=== PATIENT | female | born 1935 | race African-American/Black ===

== ENCOUNTER 2017-02-02 12:38 | Inpatient (IN) | payer OTHER ==
[~2017-02-02] VITALS: Ht 165.1 cm; Wt 73.1 kg
[2017-02-02] VITALS (20 sets, daily range): BP systolic 66–131; BP diastolic 22–87
[2017-02-02] MEDS ORDERED: UNOBMED (12:49)
--- NOTE | 2017-02-02 13:12 | Emergency Room Report ---
History of Present Illness General Chief Complaint: Altered Level of Consciousness Source: Family Member, EMS Present Illness HPI Patient presents by paramedics from home gives a report that the patient was recently taken out of a [facility] several weeks ago More recently now the patient appeared more unresponsive This morning the family had difficult time waking the patient up she has not been eating and paramedics were summoned Upon initial arrival the patient is extremely hypotensive unresponsive She was maintaining appropriate respirations with gag reflex And family does request full CODE STATUS Patient has had diagnosis of severe Alzheimer's Allergies: Coded Allergies: No Known Allergies (Unverified , 02/02/17) Patient History Limited by: medical condition Past Medical History: see triage record Pertinent Family History: unable to obtain Reviewed Nursing Documentation: PMH: Agreed, PSxH: Agreed Nursing Documentation-PMH Hx Hypertension: Yes Review of Systems All Other Systems: limited - Other than the ones mentioned in the history of present illness all others are reviewed however they do stay limited due to the patient's mental status Physical Exam Vital Signs Date Time Temp Pulse Resp B/P (MAP) Pulse Ox O2 Delivery O2 Flow Rate FiO2 02/02/17 12:46 97.5 94 18 90/22 94 Non-Rebreather Sp02 EP Interpretation: reviewed, normal General Appearance: severe distress - Appears unresponsive, cachectic Head: normocephalic, atraumatic Eyes: bilateral eye PERRL ENT: dry mucus membranes Neck: supple - The patient does have a kyphosis Respiratory: crackles - in both lower lobes Cardiovascular #1: regular rate, rhythm, other - Mild edema in both lower extremities Gastrointestinal: non tender, soft Genitourinary: no CVA tenderness Musculoskeletal: other - Patient appears debilitated and lower extremities, she does move towards painful stimuli with both upper extremities Neurologic: responsive - to physical stimuli Skin: other - Skin breakdown over the right hand just proximal to the thumb, inguinal erythema Lymphatic: no adenopathy Procedures Critical Care Time Critical Care Time 50 minutes for initial critical presentation, multiple re\re evaluations, concern for critical findings leading to possible , not including any procedural time Central Line Central Line : Consent: Emergent Central Line Lumen: triple Maximal Sterile Barrier Tech: yes cap, yes mask, yes sterile gown, yes sterile gloves, yes large sterile sheet, yes hand hygiene, yes chlorhexidine prep Central Line Postion: femoral (R) Complications: none Central Line Post Position: sutured Attempts: One Patient Tolerated: Well Complications: None Medical Decision Making Diagnostic Impression: Primary Impression: Severe sepsis Additional Impression: Septic shock ER Course Patient is extremely ill upon arrival hypotensive No IV access was able to be obtained therefore patient had central line placed Patient is aggressively hydrated Antibiotics initiated Patient has a just the elevated white blood cell count Patient had reevaluation performed cardiopulmonary exams improved with palpable pulses Refills are intact less than 2 seconds Overall patient improved with acute intervention And requires admission to ICU Labs Test 02/02/17 13:00 02/02/17 13:20 White Blood Count 23.8 K/UL (4.8-10.8) Red Blood Count 3.25 M/UL (4.20-5.40) Hemoglobin 9.9 G/DL (12.0-16.0) Hematocrit 33.8 % (37.0-47.0) Mean Corpuscular Volume 104 FL (80-99) Mean Corpuscular Hemoglobin 30.6 PG (27.0-31.0) Mean Corpuscular Hemoglobin Concent 29.5 G/DL (32.0-36.0) Red Cell Distribution Width 15.3 % (11.6-14.8) Platelet Count 603 K/UL (150-450) Mean Platelet Volume 5.1 FL (6.5-10.1) Neutrophils (%) (Auto) % (45.0-75.0) Lymphocytes (%) (Auto) % (20.0-45.0) Monocytes (%) (Auto) % (1.0-10.0) Eosinophils (%) (Auto) % (0.0-3.0) Basophils (%) (Auto) % (0.0-2.0) Differential Total Cells Counted 100 Neutrophils % (Manual) 88 % (45-75) Lymphocytes % (Manual) 5 % (20-45) Monocytes % (Manual) 7 % (1-10) Eosinophils % (Manual) 0 % (0-3) Basophils % (Manual) 0 % (0-2) Band Neutrophils 0 % (0-8) Platelet Estimate Increased Platelet Morphology Normal Hypochromasia 1+ Anisocytosis 1+ Macrocytosis 1+ Schistocytes Occasional Sodium Level 160 MMOL/L (136-145) Potassium Level 3.9 MMOL/L (3.5-5.1) Chloride Level 117 MMOL/L (98-107) Carbon Dioxide Level 23 MMOL/L (21-32) Anion Gap 20 mmol/L (5-15) Blood Urea Nitrogen 52 mg/dL (7-18) Creatinine 3.5 MG/DL (0.55-1.30) Estimat Glomerular Filtration Rate mL/min (>60) Glucose Level 141 MG/DL (74-106) Calcium Level 9.7 MG/DL (8.5-10.1) Total Bilirubin 0.7 MG/DL (0.2-1.0) Aspartate Amino Transf (AST/SGOT) 59 U/L (15-37) Alanine Aminotransferase (ALT/SGPT) 35 U/L (12-78) Alkaline Phosphatase 75 U/L (46-116) Troponin I 1.991 ng/mL (0.000-0.056) Total Protein 7.4 G/DL (6.4-8.2) Albumin 3.0 G/DL (3.4-5.0) Globulin 4.4 g/dL Albumin/Globulin Ratio 0.7 (1.0-2.7) Arterial Blood pH 7.480 (7.350-7.450) Arterial Blood Partial Pressure CO2 25.5 mmHg (35.0-45.0) Arterial Blood Partial Pressure O2 188.2 mmHg (75.0-100.0) Arterial Blood HCO3 18.6 mmol/L (22.0-26.0) Arterial Blood Base Excess -3.1 Abhinav Test N/a Rhythm Strip Diag. Results EP Interpretation: yes Rate: 110 Rhythm: no PVC's, no ectopy, other - Sinus tach Chest X-Ray Diagnostic Results Chest X-Ray Diagnostic Results : Chest X-Ray Ordered: Yes # of Views/Limited/Complete: 1 View Indication: Chest Pain EP Interpretation: Yes Interpretation: no pneumothorax, other - Patchy interstitial disease appearance, increased markings in the right upper lobe bilateral effusions, heart size normal Impression: Other - Significant interstitial disease Electronically Signed by: DO Nick Sykes Vital Signs Date Time Temp Pulse Resp B/P (MAP) Pulse Ox O2 Delivery O2 Flow Rate FiO2 02/02/17 12:46 97.5 94 18 90/22 94 Non-Rebreather Status: improved Disposition: ADMITTED INPATIENT Condition: Critical DEYANIRA CHEEMA D.O. Feb 02, 2017 13:12
[2017-02-02] MEDS ORDERED: Vancomycin 1 GM in NS 275 ML IV ONE (13:15)
[2017-02-02] MEDS ORDERED: Zosyn 3.375gm/50ml Premix 50 ML IVPB ONE (13:15)
[2017-02-02 13:31] LABS: ABG BASE EXCESS -3.1; ABG PCO2 25.5 mmHg (35.0-45.0)
[2017-02-02 13:33] LABS: MEAN CORPUSCULAR HEMOGLOBIN 30.6 PG (27.0-31.0); MEAN CORPUSCULAR HGB CONC 29.5 G/DL (32.0-36.0); MEAN CORPUSCULAR VOLUME 104 FL (80-99); MEAN PLATELET VOLUME 5.1 FL (6.5-10.1); PLATELET COUNT 603 K/UL (150-450); RED BLOOD COUNT 3.25 M/UL (4.20-5.40); RED CELL DISTRIBUTION WIDTH 15.3 % (11.6-14.8); WHITE BLOOD COUNT 23.8 K/UL (4.8-10.8)
[2017-02-02 13:52] LABS: LYMPHOCYTES % (MANUAL) 5 % (20-45); NEUTROPHILS % (MANUAL) 88 % (45-75); TOTAL CELLS COUNTED 100
[2017-02-02 13:53] LABS: ANISOCYTOSIS 1+; BAND NEUTROPHILS % (MANUAL) 0 % (0-8); BASOPHILS % (MANUAL) 0 % (0-2); EOSINOPHILS % (MANUAL) 0 % (0-3); HYPOCHROMASIA 1+; MACROCYTES 1+; PLATELET ESTIMATE INCREASED; PLATELET MORPHOLOGY NORMAL
[2017-02-02 13:55] LABS: SCHISTOCYTES OCCASIONAL
[2017-02-02 14:02] LABS: ALANINE AMINOTRANSFERASE 35 U/L (12-78); ALBUMIN/GLOBULIN RATIO 0.7 (1.0-2.7); ANION GAP 20 mmol/L (5-15); ASPARTATE AMINO TRANSFERASE 59 U/L (15-37); CALCIUM 9.7 MG/DL (8.5-10.1); CARBON DIOXIDE 23 MMOL/L (21-32); CHLORIDE 117 MMOL/L (98-107); CREATININE 3.5 MG/DL (0.55-1.30); POTASSIUM 3.9 MMOL/L (3.5-5.1); SODIUM 160 MMOL/L (136-145); TOTAL PROTEIN 7.4 G/DL (6.4-8.2)
[2017-02-02 14:13] LABS: CKMB 33.3 NG/ML (0.0-3.6); LIPASE 164 U/L (73-393)
[2017-02-02] MEDS ORDERED: Vancomycin 1gm inj IVPB ONE (14:21)
[2017-02-02] MEDS ORDERED: NS 0 ML ONE (14:21)
[2017-02-02 14:23] LABS: REFLEX LACTIC ACID YES OR NO YES
[2017-02-02] MEDS ORDERED: Piperacillin/Tazobactam 3.375 GM in D5W 110 ML IVPB ONE (14:30)
[2017-02-02] MEDS ORDERED: Zosyn 3.375gm inj ONE (14:31)
[2017-02-02 14:36] LABS: INR 1.2 (0.9-1.1); PROTHROMBIN TIME 12.6 SEC (9.30-11.50)
--- NOTE | 2017-02-02 14:52 | Diagnostic Imaging Report ---
Indication: Dyspnea Comparison: None A single view chest radiograph was obtained. Findings: Cardiomediastinal appearance is within normal limits for age. Pulmonary vascularity is appropriate. The diaphragmatic contour is smooth and costophrenic angles are sharp. No pleural effusions are identified. The bones are osteopenic. Impression: No acute findings
[2017-02-02 20:35] LABS: APPEARANCE,URINE SLIGHTLY CLOUDY; KETONES,URINE 1+ (NEGATIVE); LEUKOCYTE ESTERASE ,URINE 3+ (NEGATIVE); NITRITE,URINE NEGATIVE (NEGATIVE); PH,URINE 5 (4.5-8.0); PROTEIN,URINE 4+ (NEGATIVE); UROBILINOGEN,URINE NORMAL MG/DL (0.0-1.0)
[2017-02-02 20:52] LABS: AMORPHOUS SEDIMENT,UR FEW /LPF; BACTERIA,URINE MANY /HPF; RBC,URINE 20-30 /HPF (0 - 2); SQUAMOUS EPITHELIAL CELL,UR FEW /LPF (NONE/OCC); WBC,URINE 15-20 /HPF (0 - 2)
[2017-02-02 21:05] LABS: ICTOTEST NEGATIVE
[2017-02-02] MEDS: Dyna-Hex 2% Top Sol 2oz TOPIC SCH (21:05)
[2017-02-02] MEDS: Pantoprazole Inj IVP SCH (21:05)
[2017-02-02] MEDS: Zosyn 3.375gm q8h **Extended infusion IVPB SCH (21:26)
[2017-02-02] MEDS ORDERED: Piperacillin/Tazobactam 3.375 GM in D5W 110 ML IVPB SCH (22:00)
--- NOTE | 2017-02-02 23:15 | History and Physical Report ---
DATE OF ADMISSION: 02/02/2017 INTENSIVE CARE UNIT CONSULTATION/HISTORY AND PHYSICAL HISTORY OF PRESENT ILLNESS: This is an 81-year-old who is well known to me from prior admission at [facility] couple of weeks ago. The patient was discharged from [facility] after having been admitted there with failure to thrive and dehydration. She also had UTI at that time that was treated. She passed swallow evaluation and was discharged to jail with modified diet. reported the patient was discharged home a week ago, however, has not been eating, has been having more difficulty with mental status. She was brought to [facility]. She is a Full Code. She was found to be hypotensive, tachycardic, and hypernatremic. She was admitted to ICU for further management and care. PAST MEDICAL HISTORY: Dementia, recently passed swallow evaluation, recent UTI. ALLERGIES: None reported. HOME MEDICATIONS: Summarized in chart. At this point, the patient is not on any scheduled medications. As an outpatient, she had only been on Protonix. REVIEW OF SYSTEMS: Not obtainable. PHYSICAL EXAMINATION: GENERAL: Examination reveals an elderly female VITAL SIGNS: Blood pressure at this time is 70/40, heart rate 94, respiratory rate 18, she is afebrile. She has been started on a Levophed drip. A central line is in place. HEENT: Unremarkable. CHEST: Decreased breath sounds bilaterally. ABDOMEN: Soft. EXTREMITIES: There is no edema. NEUROLOGIC: Nonfocal. The patient is cooperative. LABORATORY DATA: Lab testing shows white count 23.8, hemoglobin 11.9, and platelet count is 623,000. Chemistries notable for sodium 160, potassium 3.5. ABG, pH 7.4, pCO2 25, pO2 188. Coags are negative. IMAGING STUDIES: Noncontributory. IMPRESSION: 1. Dehydration. 2. Hypernatremia. 3. Shock. 4. Dementia. 5. Full Code. DISCUSSION: Admitted to the hospital. Start pressors. IV fluids. Empiric antibiotics. We will consult Nephrology and Cardiology. Continue present medications. The patient is Full Code. Teja Adhikari M.D. DR: Steph JOB#: [id number] CC:
--- NOTE | 2017-02-02 23:15 | Consultation ---
DATE OF CONSULTATION: 02/02/2017 CARDIOLOGY CONSULTATION CONSULTING PHYSICIAN: Audi Garcia M.D. ATTENDING PHYSICIAN: Teja Adhikari M.D. REQUESTING PHYSICIAN: Teja Adhikari M.D. REASON FOR CONSULTATION: Elevated troponin level and hypotension. HISTORY OF PRESENT ILLNESS: This is an 81-year-old female. She has been residing at a halfway facility up until 2 days ago when she was released home. She was increasingly withdrawn and unresponsive and brought to the emergency room by family members today. Upon arrival, she was hypotensive and unresponsive. The patient was treated with volume resuscitation and admitted to the intensive care unit. Blood pressure parameters failed to improve adequately and she is now on pressor support as well. ALLERGIES: None. PAST MEDICAL HISTORY: Includes hypertension, decubiti, cerebrovascular disease with dementia. FAMILY HISTORY: Noncontributory. MEDICATIONS: Medications prior to admission, reviewed and reconciled. SOCIAL HISTORY: No record of smoking, alcohol, or substance abuse. REVIEW OF SYSTEMS: Not reliably obtained from the patient at this time. PHYSICAL EXAMINATION: VITAL SIGNS: Blood pressure 90/22, rate 94, respiratory rate 18, and afebrile. SKIN: Pictured in the chart with multiple decubiti. HEENT: Temporal wasting. Pale conjunctivae. Dry mucous membranes. NECK: Supple. No accessory muscle use. LUNGS: Coarse breath sounds. No wheezes or rales. CARDIAC: Regular rhythm and rate. Normal S1, S2 with a fourth heart sound. ABDOMEN: Soft, nontender. EXTREMITIES: With trace edema. There is a central line catheter in the right femoral vein, site is without active bleeding. LABORATORY DATA: White count 23.8, hemoglobin 9.9, and platelet count 603,000. Sodium 160, potassium 3.9, chloride 117, bicarbonate 23, BUN 52, creatinine 3.5, glucose 141. Albumin 3.0. EKG with sinus tachycardia and nonspecific ST change. Troponin level is elevated at 1.1. IMPRESSION: 1. Multiorgan system failure. 2. Sepsis. 3. Decubiti. 4. Dehydration. 5. Hypernatremia. 6. Hypovolemia. 7. Hyperchloremia. 8. Acute on chronic renal failure due to acute tubular necrosis. 9. Secondary sinus tachycardia. 10. Dementia with episodes of agitation. 11. Lactic acidosis. PLAN: 1. ICU monitoring. 2. Volume support with saline until euvolemic, then transition to hypotonic IV fluids. 3. Wean off Levophed as blood pressure parameters improve. 4. Broad-spectrum antibiotics. 5. Respiratory hygiene. 6. DVT and stress ulcer prophylaxis. 7. Serial troponin levels. 8. Repeat lactic acid level. 9. Anti-platelet therapy. 10. Consider beta-ann once hemodynamically stable. CONDITION: Condition is critical and prognosis remains guarded. Audi Garcia M.D. DR: Blanca JOB#: [id number] CC:
[2017-02-03] VITALS (60 sets, daily range): BP systolic 75–118; BP diastolic 39–80
[2017-02-03 05:30] LABS: MEAN CORPUSCULAR HEMOGLOBIN 32.3 PG (27.0-31.0); MEAN CORPUSCULAR HGB CONC 32.1 G/DL (32.0-36.0); MEAN CORPUSCULAR VOLUME 101 FL (80-99); MEAN PLATELET VOLUME 5.4 FL (6.5-10.1); PLATELET COUNT 476 K/UL (150-450); RED BLOOD COUNT 2.72 M/UL (4.20-5.40); RED CELL DISTRIBUTION WIDTH 15.2 % (11.6-14.8)
--- NOTE | 2017-02-03 06:05 | Pulmonology Progress Note ---
Assessment/Plan Assessment/Plan IMPRESSION: 1. Multiorgan system failure. 2. Sepsis. 3. Decubiti. 4. Dehydration. 5. Hypernatremia. 6. Hypovolemia. 7. Hyperchloremia. 8. Acute on chronic renal failure 9. Secondary sinus tachycardia. 10. Dementia with episodes of agitation. 11. Lactic acidosis. PLAN: 1. ICU monitoring. 2. Volume support with saline until euvolemic, then transition to hypotonic IV fluids. 3. Wean off Levophed as blood pressure parameters improve. 4. Broad-spectrum antibiotics. 5. Respiratory hygiene. 6. DVT and stress ulcer prophylaxis. 7. Serial troponin levels. 8. Repeat lactic acid level. 9. Anti-platelet therapy. 10. Consider beta-ann once hemodynamically stable. 11. Cardiology consult appreciated Subjective Interval Events: BP improved on Levophed; Constitutional: Reports: no symptoms HEENT: Repors: no symptoms Respiratory: Reports: no symptoms Cardiovascular: Reports: no symptoms Gastrointestinal/Abdominal: Reports: no symptoms Genitourinary: Reports: no symptoms Allergies: Coded Allergies: No Known Allergies (Unverified , 02/02/17) Objective Last 24 Hour Vital Signs Date Time Temp Pulse Resp B/P (MAP) Pulse Ox O2 Delivery O2 Flow Rate FiO2 02/03/17 04:00 88 02/03/17 03:45 79 17 100/48 98 Nasal Cannula 2.0 02/03/17 03:30 88 20 91/46 98 Nasal Cannula 2.0 02/03/17 03:15 101 13 104/50 96 Nasal Cannula 2.0 02/03/17 03:00 87 13 95/53 96 Nasal Cannula 2.0 02/03/17 02:45 86 13 78/40 99 Nasal Cannula 2.0 02/03/17 02:30 86 13 85/40 99 Nasal Cannula 2.0 02/03/17 02:00 85 13 82/47 99 Nasal Cannula 2.0 02/03/17 01:45 85 13 81/45 99 Nasal Cannula 2.0 02/03/17 01:30 89 18 80/41 99 Nasal Cannula 2.0 02/03/17 01:15 89 18 78/41 99 Nasal Cannula 2.0 02/03/17 01:00 86 18 81/41 99 Nasal Cannula 2.0 02/03/17 00:45 83 19 75/45 99 Nasal Cannula 2.0 02/03/17 00:30 80 19 78/46 100 Nasal Cannula 2.0 02/03/17 00:15 78 17 84/39 100 Nasal Cannula 2.0 02/03/17 00:00 97.8 78 16 88/40 100 Nasal Cannula 2.0 02/03/17 00:00 84/45 02/03/17 00:00 79 02/02/17 23:45 79 19 84/45 100 Nasal Cannula 2.0 02/02/17 23:30 78 14 82/42 100 Nasal Cannula 2.0 02/02/17 23:15 77 10 95/46 100 Nasal Cannula 2.0 02/02/17 23:00 77 10 78/51 100 Nasal Cannula 2.0 02/02/17 22:45 76 9 66/51 100 Nasal Cannula 2.0 02/02/17 22:30 76 10 100/50 100 Nasal Cannula 2.0 02/02/17 22:15 76 12 87/44 100 Nasal Cannula 2.0 02/02/17 22:00 78 17 95/40 99 Nasal Cannula 2.0 02/02/17 21:30 79 16 92/47 100 Nasal Cannula 2.0 02/02/17 21:00 79 13 97/61 100 Nasal Cannula 2.0 02/02/17 20:30 81 11 103/36 100 Nasal Cannula 2.0 02/02/17 20:00 76 02/02/17 20:00 83 12 95/56 100 Nasal Cannula 2.0 02/02/17 19:15 97.7 78 18 131/87 99 Nasal Cannula 2.0 02/02/17 19:00 131/87 02/02/17 19:00 78 18 131/87 99 Nasal Cannula 2.0 02/02/17 18:00 105/57 02/02/17 18:00 98.2 80 18 105/57 99 Nasal Cannula 2.0 02/02/17 17:26 71/35 02/02/17 17:00 98.2 79 18 71/48 99 Nasal Cannula 2.0 02/02/17 16:00 89 02/02/17 16:00 98.6 81 19 104/85 99 Nasal Cannula 2.0 02/02/17 15:11 84 18 99/40 99 Room Air 02/02/17 14:26 97.0 98 18 97/81 99 Nasal Cannula 2.0 02/02/17 13:30 96.7 88 18 99/41 98 Nasal Cannula 4.0 02/02/17 13:27 97.5 95 99 Non-Rebreather 02/02/17 12:46 97.5 94 94 Non-Rebreather General Appearance: no acute distress HEENT: normocephalic Respiratory/Chest: chest wall non-tender, lungs clear Cardiovascular: normal peripheral pulses, tachycardia Abdomen: normal bowel sounds, soft, non tender Extremities: no cyanosis Laboratory Tests 02/02/17 13:00: White Blood Count 23.8*H, Red Blood Count 3.25L, Hemoglobin 9.9L, Hematocrit 33.8L, Mean Corpuscular Volume 104H, Mean Corpuscular Hemoglobin 30.6, Mean Corpuscular Hemoglobin Concent 29.5L, Red Cell Distribution Width 15.3H, Platelet Count 603H, Mean Platelet Volume 5.1L, Neutrophils (%) (Auto) , Lymphocytes (%) (Auto) , Monocytes (%) (Auto) , Eosinophils (%) (Auto) , Basophils (%) (Auto) , Differential Total Cells Counted 100, Neutrophils % ( Manual) 88H, Lymphocytes % (Manual) 5L, Monocytes % (Manual) 7, Eosinophils % ( Manual) 0, Basophils % (Manual) 0, Band Neutrophils 0, Platelet Estimate IncreasedH, Platelet Morphology Normal, Hypochromasia 1+, Anisocytosis 1+, Macrocytosis 1+, Schistocytes Occasional, Sodium Level 160H, Potassium Level 3.9 , Chloride Level 117H, Carbon Dioxide Level 23, Anion Gap 20H, Blood Urea Nitrogen 52H, Creatinine 3.5H, Estimat Glomerular Filtration Rate , Glucose Level 141H, Lactic Acid Level 8.20H, Calcium Level 9.7, Total Bilirubin 0.7, Aspartate Amino Transf (AST/SGOT) 59H, Alanine Aminotransferase (ALT/SGPT) 35, Alkaline Phosphatase 75, Total Creatine Kinase 1088H, Creatine Kinase MB 33.3H, Creatine Kinase MB Relative Index 3.0, Troponin I 1.991H, Pro-B-Type Natriuretic Peptide 74655A, Total Protein 7.4, Albumin 3.0L, Globulin 4.4, Albumin/Globulin Ratio 0.7L, Lipase 164 02/02/17 13:20: Arterial Blood pH 7.480H, Arterial Blood Partial Pressure CO2 25.5L, Arterial Blood Partial Pressure O2 188.2H, Arterial Blood HCO3 18.6L, Arterial Blood Oxygen Saturation [Pending], Arterial Blood Base Excess -3.1, Abhinav Test N/a 02/02/17 14:13: Prothrombin Time 12.6H, Prothromb Time International Ratio 1.2H, Activated Partial Thromboplast Time 20L 02/02/17 14:25: Lactic Acid Level 4.60H 02/02/17 19:50: Urine Color Yellow, Urine Appearance Slightly cloudy, Urine pH 5, Urine Specific [place] 1.020, Urine Protein 4+H, Urine Glucose (UA) Negative, Urine Ketones 1+H, Urine Occult Blood 5+H, Urine Nitrite Negative, Urine Bilirubin 1+H , Urine Ictotest Negative, Urine Urobilinogen Normal, Urine Leukocyte Esterase 3 +H, Urine RBC 20-30H, Urine WBC 15-20H, Urine Squamous Epithelial Cells Few, Urine Amorphous Sediment FewH, Urine Bacteria ManyH 02/03/17 04:10: White Blood Count [Pending], Red Blood Count [Pending], Hemoglobin [Pending], Hematocrit [Pending], Mean Corpuscular Volume [Pending], Mean Corpuscular Hemoglobin [Pending], Mean Corpuscular Hemoglobin Concent [Pending], Red Cell Distribution Width [Pending], Platelet Count [Pending], Mean Platelet Volume [ Pending], Neutrophils (%) (Auto) [Pending], Lymphocytes (%) (Auto) [Pending], Monocytes (%) (Auto) [Pending], Eosinophils (%) (Auto) [Pending], Basophils (%) (Auto) [Pending], Sodium Level [Pending], Potassium Level [Pending], Chloride Level [Pending], Carbon Dioxide Level [Pending], Blood Urea Nitrogen [Pending], Creatinine [Pending], Estimat Glomerular Filtration Rate [Pending], Glucose Level [Pending], Lactic Acid Level [Pending], Calcium Level [Pending], Total Bilirubin [Pending], Aspartate Amino Transf (AST/SGOT) [Pending], Alanine Aminotransferase (ALT/SGPT) [Pending], Alkaline Phosphatase [Pending], Troponin I [Pending], Total Protein [Pending], Albumin [Pending], Globulin [Pending], Thyroid Stimulating Hormone (TSH) [Pending], Random Vancomycin Level [Pending] Current Medications Medications (Trade) Dose Ordered Sig/Lyndon Route PRN Reason Start Time Stop Time Status Last Admin Dose Admin Chlorhexidine Gluconate (Mayte-Hex 2%) 1 applic DAILY@2000 TOPIC 02/02/17 20:00 03/04/17 19:59 02/02/17 21:05 Norepinephrine Bitartrate 4 mg/ Dextrose 250 ml @ 0 mls/hr Q24H IV 02/02/17 17:00 03/04/17 16:59 02/03/17 00:00 Pantoprazole (Protonix) 40 mg EVERY 12 HOURS IVP 02/02/17 21:00 03/04/17 20:59 02/02/17 21:05 Piperacillin/ Tazobactam/ Dextrose 50 ml @ 12.5 mls/hr Q12HR@1000,2200 IVPB 02/02/17 22:00 02/09/17 21:59 02/02/17 21:26 Sodium Chloride 1,000 ml @ 125 mls/hr Q8H IV 02/02/17 17:00 03/04/17 16:59 02/03/17 00:44 Vancomycin HCl (Vanco rx to dose) 1 ea DAILY PRN MISC Per rx protocol 02/02/17 17:00 03/04/17 16:59 Teja Adhikari MD Feb 03, 2017 06:05
[2017-02-03 06:09] LABS: WHITE BLOOD COUNT 28.1 K/UL (4.8-10.8)
[2017-02-03 06:10] LABS: ALANINE AMINOTRANSFERASE 37 U/L (12-78); ALBUMIN/GLOBULIN RATIO 0.8 (1.0-2.7); ANION GAP 17 mmol/L (5-15); ASPARTATE AMINO TRANSFERASE 55 U/L (15-37); CALCIUM 8.4 MG/DL (8.5-10.1); CARBON DIOXIDE 22 MMOL/L (21-32); CHLORIDE 121 MMOL/L (98-107); CREATININE 2.4 MG/DL (0.55-1.30); POTASSIUM 2.9 MMOL/L (3.5-5.1); SODIUM 160 MMOL/L (136-145); TOTAL PROTEIN 6.3 G/DL (6.4-8.2)
[2017-02-03 06:42] LABS: REFLEX LACTIC ACID YES OR NO YES
[2017-02-03 08:37] LABS: BAND NEUTROPHILS % (MANUAL) 3 % (0-8); LYMPHOCYTES % (MANUAL) 7 % (20-45); NEUTROPHILS % (MANUAL) 88 % (45-75); TOTAL CELLS COUNTED 100
[2017-02-03 08:38] LABS: ACANTHOCYTES OCCASIONAL; ANISOCYTOSIS 1+; BASOPHILS % (MANUAL) 0 % (0-2); BURR CELLS 1+; EOSINOPHILS % (MANUAL) 0 % (0-3); MACROCYTES 1+; PLATELET ESTIMATE INCREASED; PLATELET MORPHOLOGY NORMAL
[2017-02-03 08:39] LABS: HYPOCHROMASIA 1+
[2017-02-03] MEDS: Pantoprazole Inj IVP SCH ×2 (08:52→21:06)
[2017-02-03] MEDS ORDERED: Vancomycin 1250mg/D5W 250ml IVPB ONE (09:00)
[2017-02-03] MEDS ORDERED: Tubing IV Secondary IV ONE (09:36)
[2017-02-03] MEDS: Zosyn 3.375gm q8h **Extended infusion IVPB SCH ×2 (09:44→21:33)
--- NOTE | 2017-02-03 11:17 | Wound Care Consultation ---
Wound Assessment Wound Assessment #1: Wound Number: 1 Wound Present on Admission: Yes New Wound: No Status Change of Wound: No Wound Location Body Site Modif: mid Wound Location Body Site: sacral Wound Type: pressure ulcer Bayron Test: Does not Bayron Pressure Ulcer Stage: II - scattered Wound Thickness: Partial Thickness Wound Length: 4.5 Wound Width: 5.5 Wound Depth: 0.1 Percent of Wound [place]/Red: 100 Wound Drainage Description: Serosanguineous Wound Drainage Amount: Scant Wound Drainage Odor: None/Absent Tissue Surrounding Wound: Erythemic Wound General Appearance: Reddened, Draining Wound Assessment #2: Wound Number: 2 Wound Present on Admission: Yes New Wound: No Status Change of Wound: No Wound Location Body Site Modif: left Wound Location Body Site: buttocks Wound Type: pressure ulcer Bayron Test: Does not Bayron Pressure Ulcer Stage: II Wound Thickness: Partial Thickness Wound Length: 0.5 Wound Width: 0.8 Wound Depth: 0.1 Percent of Wound [place]/Red: 100 Wound Drainage Description: Serosanguineous Wound Drainage Amount: Scant Wound Drainage Odor: None/Absent Tissue Surrounding Wound: Erythemic Wound General Appearance: Reddened Wound Assessment #3: Wound Number: 3 Wound Present on Admission: Yes New Wound: No Status Change of Wound: No Wound Location Body Site Modif: right Wound Location Body Site: buttocks Wound Type: pressure ulcer Bayron Test: Does not Bayron Pressure Ulcer Stage: II Wound Thickness: Partial Thickness Wound Length: 0.5 Wound Width: 0.8 Wound Depth: 0.1 Percent of Wound [place]/Red: 100 Wound Drainage Description: Serosanguineous Wound Drainage Amount: Scant Wound Drainage Odor: None/Absent Tissue Surrounding Wound: Erythemic Wound General Appearance: Reddened Wound Assessment #4: Wound Number: 4 Wound Present on Admission: Yes New Wound: No Status Change of Wound: No Wound Location Body Site Modif: right Wound Location Body Site: trochanter Wound Type: pressure ulcer Bayron Test: Does not Bayron Pressure Ulcer Stage: Deep Tissue Injury Wound Thickness: Full Thickness Wound Length: 6.5 Wound Width: 8.5 Wound Depth: utd Percent of Wound Purple/Maroon: 100 Wound Drainage Amount: None Wound Drainage Odor: None/Absent Tissue Surrounding Wound: Erythemic Wound General Appearance: Reddened - purple Wound Assessment #5: Wound Number: 5 Wound Present on Admission: Yes New Wound: No Status Change of Wound: No Wound Location Body Site Modif: right Wound Location Body Site: buttocks Wound Type: pressure ulcer Bayron Test: Does not Bayron Pressure Ulcer Stage: Deep Tissue Injury Wound Thickness: Full Thickness Wound Length: 3.5 Wound Width: 5.5 Wound Depth: utd Percent of Wound Purple/Maroon: 100 Wound Drainage Amount: None Wound Drainage Odor: None/Absent Tissue Surrounding Wound: Intact Wound General Appearance: Reddened - purple Wound Assessment #6: Wound Number: 6 Wound Present on Admission: Yes New Wound: No Status Change of Wound: No Wound Location Body Site Modif: right Wound Location Body Site: ischial tuberosity Wound Type: pressure ulcer Bayron Test: Does not Bayron Pressure Ulcer Stage: Deep Tissue Injury Wound Thickness: Full Thickness Wound Length: 2.5 Wound Width: 2.5 Wound Depth: utd Percent of Wound Purple/Maroon: 100 Wound Drainage Amount: None Wound Drainage Odor: None/Absent Tissue Surrounding Wound: Erythemic Wound General Appearance: Reddened - purple Wound Assessment #7: Wound Number: 7 Wound Present on Admission: Yes New Wound: No Status Change of Wound: No Wound Location Body Site Modif: right, dorsal Wound Location Body Site: hand Wound Type: blister - open Bayron Test: Does not Bayron Wound Thickness: Partial Thickness Wound Length: 5.5 Wound Width: 3.5 Wound Depth: 0.1 Percent of Wound [place]/Red: 100 Wound Drainage Amount: None Wound Drainage Odor: None/Absent Tissue Surrounding Wound: Erythemic Wound General Appearance: Reddened, Draining Wound Assessment #8: Wound Number: 8 Wound Present on Admission: Yes New Wound: No Status Change of Wound: No Wound Location Body Site Modif: right, lateral Wound Location Body Site: malleolus/ankle Wound Type: pressure ulcer Bayron Test: Does not Bayron Pressure Ulcer Stage: Deep Tissue Injury Wound Thickness: Full Thickness Wound Length: 2.0 Wound Width: 3.0 Wound Depth: utd Percent of Wound Purple/Maroon: 100 Wound Drainage Amount: None Wound Drainage Odor: None/Absent Tissue Surrounding Wound: Intact Wound General Appearance: Reddened - purple Wound Assessment #9: Wound Number: 9 Wound Present on Admission: Yes New Wound: No Status Change of Wound: No Wound Location Body Site Modif: right, mid, lateral Wound Location Body Site: foot Wound Type: pressure ulcer Bayron Test: Does not Bayron Pressure Ulcer Stage: Deep Tissue Injury Wound Thickness: Full Thickness Wound Length: 2.5 Wound Width: 3.5 Wound Depth: utd Percent of Wound Purple/Maroon: 100 Wound Drainage Amount: None Wound Drainage Odor: None/Absent Tissue Surrounding Wound: Erythemic Wound General Appearance: Reddened - purple Wound Assessment #10: Wound Number: 10 Wound Present on Admission: Yes New Wound: No Status Change of Wound: No Wound Location Body Site Modif: right Wound Location Body Site: metatarsal head - 5th Wound Type: pressure ulcer Bayron Test: Does not Bayron Pressure Ulcer Stage: Deep Tissue Injury Wound Thickness: Full Thickness Wound Length: 8.0 Wound Width: 8.0 Wound Depth: utd Percent of Wound Purple/Maroon: 100 Wound Drainage Amount: None Wound Drainage Odor: None/Absent Tissue Surrounding Wound: Erythemic Wound General Appearance: Reddened - purple Wound Assessment #11: Wound Number: 11 Wound Present on Admission: Yes New Wound: No Status Change of Wound: No Wound Location Body Site Modif: right Wound Location Body Site: heel Wound Type: pressure ulcer Bayron Test: Does not Bayron Pressure Ulcer Stage: Deep Tissue Injury Wound Thickness: Full Thickness Wound Length: 3.5 Wound Width: 3.5 Wound Depth: utd Percent of Wound Purple/Maroon: 100 Wound Drainage Amount: None Wound Drainage Odor: None/Absent Tissue Surrounding Wound: Erythemic Wound General Appearance: Reddened - purple Wound Assessment #12: Wound Number: 12 Wound Present on Admission: Yes New Wound: No Status Change of Wound: No Wound Location Body Site Modif: right, lower, medial Wound Location Body Site: leg Wound Type: blister - open Bayron Test: Does not Bayron Pressure Ulcer Stage: II Wound Thickness: Partial Thickness Wound Length: 3.5 Wound Width: 2.5 Wound Depth: 0.1 Percent of Wound [place]/Red: 100 Wound Drainage Description: Serosanguineous Wound Drainage Amount: Scant Wound Drainage Odor: None/Absent Tissue Surrounding Wound: Erythemic Wound General Appearance: Reddened, Draining Wound Assessment #13: Wound Number: 13 Wound Present on Admission: Yes New Wound: No Status Change of Wound: No Wound Location Body Site Modif: left Wound Location Body Site: heel Wound Type: pressure ulcer Bayron Test: Does not Bayron Pressure Ulcer Stage: Deep Tissue Injury Wound Thickness: Full Thickness Wound Length: 5.5 Wound Width: 4.0 Wound Depth: utd Percent of Wound Black/Brown: 100 Wound Drainage Amount: None Wound Drainage Odor: None/Absent Tissue Surrounding Wound: Indurated Wound General Appearance: Reddened, Blackened Wound Assessment #14: Wound Number: 14 Wound Present on Admission: Yes New Wound: No Status Change of Wound: No Wound Location Body Site Modif: left, mid, lateral Wound Location Body Site: foot Wound Type: pressure ulcer Bayron Test: Does not Bayron Pressure Ulcer Stage: Deep Tissue Injury Wound Thickness: Full Thickness Wound Length: 2.5 Wound Width: 2.5 Wound Depth: utd Percent of Wound Purple/Maroon: 100 Wound Drainage Amount: None Wound Drainage Odor: None/Absent Tissue Surrounding Wound: Erythemic Wound General Appearance: Reddened - purple Wound Assessment #15: Wound Number: 15 Wound Present on Admission: Yes New Wound: No Status Change of Wound: No Wound Location Body Site Modif: left, lateral Wound Location Body Site: metatarsal head - 5th Wound Type: pressure ulcer Bayron Test: Does not Bayron Pressure Ulcer Stage: Deep Tissue Injury Wound Thickness: Full Thickness Wound Length: 2.0 Wound Width: 1.5 Wound Depth: utd Percent of Wound Purple/Maroon: 100 Wound Drainage Amount: None Wound Drainage Odor: None/Absent Tissue Surrounding Wound: Erythemic Wound General Appearance: Reddened - purple Wound Assessment #16: Wound Number: 16 Wound Present on Admission: Yes New Wound: No Status Change of Wound: No Wound Location Body Site Modif: left, lateral Wound Location Body Site: malleolus/ankle Wound Type: pressure ulcer Bayron Test: Does not Bayron Pressure Ulcer Stage: Deep Tissue Injury Wound Thickness: Full Thickness Wound Length: 0.5 Wound Width: 0.5 Wound Depth: utd Percent of Wound Purple/Maroon: 100 Wound Drainage Amount: None Wound Drainage Odor: None/Absent Tissue Surrounding Wound: Erythemic Wound General Appearance: Reddened - purple Wound Assessment #17: Wound Number: 17 Wound Present on Admission: Yes New Wound: No Status Change of Wound: No Wound Location Body Site Modif: right, upper Wound Location Body Site: back Wound Type: pressure ulcer Bayron Test: Does not Bayron Pressure Ulcer Stage: Deep Tissue Injury Wound Thickness: Full Thickness Percent of Wound Purple/Maroon: 100 Wound Drainage Amount: None Wound Drainage Odor: None/Absent Tissue Surrounding Wound: Erythemic Wound General Appearance: Reddened - purple Wound Comment #1 Sacral area scattered stage II pressure ulcer #2 Left buttock stage II pressure ulcer #3 Right buttock stage II pressure ulcer #4 Right trochanter DTI pressure ulcer #5 Right buttock DTI pressure ulcer #6 Right ischial tuberosity DTI pressure ulcer #7 Right hand open blister on dorsal hand #8 Right lateral malleolus DTI pressure ulcer #9 Right plantar 5th metatarsal head DTI blood blister pressure ulcer #10 Right lateral mid foot DTI pressure ulcer #11 Right heel DTI pressure ulcer #12 Right medial lower leg open blister stage II pressure ulcer #13 Left heel unstageable pressure ulcer with black eschar adhered to wound bed #14 Left lateral mid foot DTI pressure ulcer #15 Left lateral 5th metatarsal head DTI pressure ulcer #16 Left lateral malleolus DTI pressure ulcer #17 Right upper back area scattered DTI pressure ulcers Recommendation -Sacral area scattered stage II pressure ulcer, Left buttock stage II pressure ulcer, Right buttock stage II pressure ulcer and Right medial lower leg open blister stage II pressure ulcer, Cleanse with saline, pat dry, apply Triad cream, cover with Biatain silicone daily and PRN soiled/dislodged -Local wound care per protocol for DTI and left heel unstageable on left heel -Low air loss P200 mattress -Optimize nutrition -Turn and reposition -Keep clean and dry -Offload both heels -Heel protector on both heels -Assess and f/u accordingly for any changes SONIA UMANZRO RN Feb 03, 2017 11:17
[2017-02-03] MEDS ORDERED: Lidocaine 1% Plain 30 ml INJ PRN (14:00)
[2017-02-03] MEDS ORDERED: Heparin 2000 units/Ns 1000ml IV PRN (14:00)
--- NOTE | 2017-02-03 15:15 | Consultation ---
DATE OF CONSULTATION: 02/03/2017 INFECTIOUS DISEASE CONSULTATION This consult is for coverage of Dr. Augustine. PRIMARY PHYSICIAN: Teja Herrera M.D. REASON FOR CONSULTATION: Bacteremia, septic shock. HISTORY OF PRESENT ILLNESS: The patient is an 81-year-old female admitted yesterday from home with altered mental status. The patient was less responsive than before, was found to have hypotension, was found to have hypernatremia, acute renal failure, had lactic acidosis, elevated troponin. After admission, transferred to ICU and started on Levophed, the dose is now 6 mcg/kg/hour. The patient also had a central line placement. PAST MEDICAL HISTORY: Significant for dementia and hypertension. The patient has a recent history of admission to [facility] with failure to thrive. She passed the swallowing test there and for sometime she lived in nursing facility, recently was discharged to home. MEDICATIONS: Heparin, potassium chloride, Zosyn, Protonix, nor-epinephrine, and vancomycin. No other history is obtained by the patient. According to nurse, opens eyes sometimes. ALLERGIES: No known drug allergy. PHYSICAL EXAMINATION: GENERAL APPEARANCE: Looks comfortable. VITAL SIGNS: Temperature is 98.2 degrees, pulse 84, blood pressure 97/52. HEAD AND NECK: Getting oxygen by nasal cannula. She has pink conjunctivae. HEART: Normal rate. LUNGS: Clear. ABDOMEN: Soft and nontender. No mass. EXTREMITIES: No edema. She has right femoral line. LABORATORY AND DIAGNOSTIC DATA: WBC today is 28.1, hemoglobin 8.8, hematocrit 27.4 and platelet is 476,000. Sodium was 160, potassium 2.9, chloride 121, carbon dioxide 22, BUN 51, and creatinine 2.4. Troponin is 1.18. Urinalysis showed WBC of 15-20, RBC of 20-30 and many bacteria. Chest x-ray was negative. Two sets of blood culture growing gram-positive coccyx in cluster. Urine culture is still pending. IMPRESSION: Sepsis with septic shock. The patient has gram-positive bacteremia, has acute renal failure, hypernatremia, lactic acidosis, elevated troponin, multiple pressure ulcer on the skin, many of them are stage II, some of them are deep tissue injuries. The patient is anemic. RECOMMENDATION: We will continue with Zosyn and vancomycin. We will follow up the cultures. I thank, Dr. Adhikari, for involving me in the care of this patient. Sarkis Myles M.D. DR: ISAIAS JOB#: [id number] CC:
[2017-02-03 15:34] LABS: ANION GAP 12 mmol/L (5-15); CARBON DIOXIDE 23 MMOL/L (21-32); CHLORIDE 120 MMOL/L (98-107); POTASSIUM 3.6 MMOL/L (3.5-5.1); SODIUM 155 MMOL/L (136-145)
--- NOTE | 2017-02-03 16:39 | Cardiology Report ---
APPROVED REPORT EKG Measurement Heart [id number] Normal sinus rhythm Prolonged QT Abnormal ECG
[2017-02-03] MEDS: Dyna-Hex 2% Top Sol 2oz TOPIC SCH (20:24)
[2017-02-04] VITALS (39 sets, daily range): BP systolic 74–133; BP diastolic 39–109
--- NOTE | 2017-02-04 04:30 | Progress Note ---
DATE: 02/03/2017 CARDIOLOGY PROGRESS NOTE SUBJECTIVE: The patient remains in the intensive care unit on pressor support with marginal blood pressure readings. The patient remains withdrawn and lethargic. OBJECTIVE: VITAL SIGNS: Blood pressure of 82/47, heart rate 85, respiratory rate 13, no fevers. HEENT: Temporal wasting. Skin exam as previously noted. Dry mucous membranes. LUNGS: Bilateral breath sounds with no wheezing. HEART: Regular rhythm and rate. Normal S1, S2 with no murmur. ABDOMEN: Soft. No focal tenderness. EXTREMITIES: Trace dependent edema. LABORATORY DATA: White count 28, hemoglobin 8.8, and platelet count 476,000. Sodium 155, potassium 3.6, chloride 120, BUN 46, and creatinine 2.0. Troponin 1.182. IMPRESSION: 1. Severe sepsis with shock. 2. Severe dehydration and hypovolemia. 3. Severe hypernatremia. 4. Severe hyperchloremia. 5. Acute on chronic renal failure. 6. Acute myocardial infarction. 7. Severe leukocytosis. 8. Macrocytic anemia. 9. Decubiti. 10. Urinary tract infection. 11. Gram-negative bacteremia. 12. Lactic acidosis. PLAN: 1. The patient remains critical and guarded and will require continued intensive care unit care. 2. Taper pressors as able. 3. Hypotonic IV fluids once volume resuscitated. For now, isotonic fluids continue. 4. Broad-spectrum antibiotics per Infectious Disease digital marketing consultant. 5. Serial troponin levels. 6. Antiplatelet therapy. 7. Consider beta-ann in the future. 8. Monitor electrolytes. 9. Adjust fluid resuscitation cautiously. 10. Serial lactic acid levels. 11. Skin care. 12. DVT and stress ulcer prophylaxis. 13. Transfuse for hemoglobin less than 8.5 g. Audi Garcia M.D. DR: ASHLEY JOB#: [id number] CC:
[2017-02-04 05:31] LABS: MEAN CORPUSCULAR HEMOGLOBIN 32.9 PG (27.0-31.0); MEAN CORPUSCULAR HGB CONC 31.6 G/DL (32.0-36.0); MEAN CORPUSCULAR VOLUME 104 FL (80-99); MEAN PLATELET VOLUME 5.7 FL (6.5-10.1); PLATELET COUNT 410 K/UL (150-450); RED BLOOD COUNT 2.36 M/UL (4.20-5.40); RED CELL DISTRIBUTION WIDTH 16.1 % (11.6-14.8)
[2017-02-04 06:00] LABS: ANION GAP 13 mmol/L (5-15); CALCIUM 7.9 MG/DL (8.5-10.1); CARBON DIOXIDE 22 MMOL/L (21-32); CHLORIDE 123 MMOL/L (98-107); CREATININE 1.5 MG/DL (0.55-1.30); POTASSIUM 2.9 MMOL/L (3.5-5.1); SODIUM 158 MMOL/L (136-145)
[2017-02-04 07:53] LABS: ANISOCYTOSIS 1+; BAND NEUTROPHILS % (MANUAL) 0 % (0-8); BASOPHILS % (MANUAL) 1 % (0-2); EOSINOPHILS % (MANUAL) 0 % (0-3); HYPOCHROMASIA 3+; LYMPHOCYTES % (MANUAL) 6 % (20-45); NEUTROPHILS % (MANUAL) 91 % (45-75); NUCLEATED RED BLOOD CELLS 1 /100 WBC; PLATELET ESTIMATE ADEQUATE; POLYCHROMASIA 2+; TOTAL CELLS COUNTED 100
[2017-02-04 07:54] LABS: MACROCYTES 1+; PLATELET MORPHOLOGY NORMAL
--- NOTE | 2017-02-04 09:03 | Pulmonology Progress Note ---
Assessment/Plan Assessment/Plan IMPRESSION: 1. Multiorgan system failure. 2. Sepsis. 3. Decubiti. 4. Dehydration. 5. Hypernatremia. 6. Hypovolemia. 7. Hyperchloremia. 8. Acute on chronic renal failure 9. Secondary sinus tachycardia. 10. Dementia with episodes of agitation. 11. Lactic acidosis. PLAN: 1. ICU monitoring. 2. Volume support with saline until euvolemic, then transition to hypotonic IV fluids. 3. Wean off Levophed as blood pressure parameters improve. 4. Broad-spectrum antibiotics. 5. Respiratory hygiene. 6. DVT and stress ulcer prophylaxis. 7. Serial troponin levels. 8. Repeat lactic acid level. 9. Anti-platelet therapy. 10. Consider beta-ann once hemodynamically stable. 11. Cardiology consult appreciated 12. GI consult called re PEG Subjective Interval Events: Poorly responsive Constitutional: Reports: no symptoms HEENT: Repors: no symptoms Respiratory: Reports: no symptoms Cardiovascular: Reports: no symptoms Allergies: Coded Allergies: No Known Allergies (Unverified , 02/02/17) Objective Last 24 Hour Vital Signs Date Time Temp Pulse Resp B/P (MAP) Pulse Ox O2 Delivery O2 Flow Rate FiO2 02/04/17 07:32 95/60 02/04/17 07:00 75 18 95/60 97 Room Air 02/04/17 06:30 74 18 90/60 97 Room Air 02/04/17 06:23 80 02/04/17 06:00 75 18 85/41 97 Room Air 02/04/17 05:30 79 13 133/109 96 Room Air 02/04/17 05:00 125/64 02/04/17 05:00 78 17 125/64 97 Room Air 02/04/17 04:30 80 16 108/63 98 Room Air 02/04/17 04:00 98.0 78 16 105/53 98 Room Air 02/04/17 04:00 105/53 02/04/17 03:30 80 16 106/59 100 Room Air 02/04/17 03:00 75 14 118/53 100 Room Air 02/04/17 02:30 72 16 110/64 99 Room Air 02/04/17 02:00 108/64 02/04/17 02:00 74 16 108/64 99 Room Air 02/04/17 01:30 75 16 120/55 99 Room Air 02/04/17 01:00 105/59 02/04/17 01:00 76 17 105/59 99 Room Air 02/04/17 00:30 77 16 101/56 99 Room Air 02/04/17 00:00 98.2 81 16 105/59 100 Room Air 02/04/17 00:00 108/65 02/04/17 00:00 80 02/03/17 23:30 81 16 114/58 100 Room Air 02/03/17 23:00 80 16 93/80 100 Room Air 02/03/17 23:00 93/80 02/03/17 22:30 85 16 118/46 100 Room Air 02/03/17 22:00 87 16 117/64 100 Room Air 02/03/17 22:00 117/64 02/03/17 21:30 82 16 107/57 100 Room Air 02/03/17 21:00 79 16 98/50 99 Room Air 02/03/17 21:00 98/50 02/03/17 20:30 80 16 106/54 100 Room Air 02/03/17 20:00 101/47 02/03/17 20:00 82 02/03/17 20:00 98.6 82 15 101/47 100 Room Air 02/03/17 19:30 86 17 101/59 100 Room Air 02/03/17 19:00 85 16 101/52 98 Room Air 02/03/17 19:00 101/52 02/03/17 18:30 85 16 96/58 99 Room Air 02/03/17 18:00 93/55 02/03/17 18:00 85 16 93/55 99 Room Air 02/03/17 17:30 80 23 91/49 99 Room Air 02/03/17 17:00 79 15 100/47 99 Room Air 02/03/17 17:00 84/43 02/03/17 16:30 78 15 84/43 99 Room Air 02/03/17 16:00 98.3 80 24 99/39 97 Room Air 02/03/17 16:00 99/39 02/03/17 16:00 79 02/03/17 15:30 80 15 96/53 99 Room Air 02/03/17 15:00 100/50 02/03/17 15:00 85 14 94/53 99 Room Air 02/03/17 14:30 88 18 99/50 99 Room Air 02/03/17 14:00 88 18 100/60 99 Room Air 02/03/17 14:00 104/55 02/03/17 13:30 87 18 103/59 99 Room Air 02/03/17 13:00 98.4 88 24 97/56 97 Room Air 02/03/17 13:00 97/56 02/03/17 12:30 84 17 95/54 99 Room Air 02/03/17 12:00 84 02/03/17 12:00 84 19 97/52 99 Room Air 02/03/17 12:00 94/53 02/03/17 11:30 91 18 99/50 99 Room Air 02/03/17 11:00 86 18 101/48 99 Room Air 02/03/17 11:00 99/50 02/03/17 10:30 90 16 101/52 99 Nasal Cannula 2.0 02/03/17 10:00 95/51 02/03/17 10:00 90 19 96/46 97 Nasal Cannula 2.0 02/03/17 09:30 87 16 101/46 100 Nasal Cannula 2.0 Intake and Output 02/04/17 02/05/17 19:00 07:00 Intake Total 125 ml Output Total 20 ml Balance 105 ml Intake IV Total 125 ml Output Urine Total 20 ml General Appearance: no acute distress HEENT: normocephalic Respiratory/Chest: chest wall non-tender, lungs clear Cardiovascular: normal peripheral pulses, normal rate Abdomen: normal bowel sounds, soft, non tender Microbiology Date/Time Source Procedure Growth Status 02/02/17 13:10 Blood Blood Culture - Preliminary Resulted 02/02/17 13:00 Blood Blood Culture - Preliminary Staphylococcus Sp Coag Neg Resulted 02/02/17 16:00 Nasal Nares MRSA Culture - Final NO METHICILLIN RESISTANT STAPH AUREUS... Complete 02/02/17 19:50 Urine,Clean Catch Urine Culture - Preliminary Gram Negative Bacillus 1 Resulted 02/02/17 16:00 Rectum VRE Culture - Final Enterococcus Faecium - Vre Complete Laboratory Tests 02/03/17 09:30: Lactic Acid Level 1.60 02/03/17 14:45: Sodium Level 155H, Potassium Level 3.6, Chloride Level 120H, Carbon Dioxide Level 23, Anion Gap 12, Blood Urea Nitrogen 46H, Creatinine 2.0H, Estimat Glomerular Filtration Rate , Glucose Level 162H, Calcium Level 8.0L 02/04/17 05:00: Sodium Level 158H, Potassium Level 2.9L, Chloride Level 123H, Carbon Dioxide Level 22, Anion Gap 13, Blood Urea Nitrogen 37H, Creatinine 1.5H, Estimat Glomerular Filtration Rate , Glucose Level 110H, Calcium Level 7.9L, White Blood Count 18.0H, Red Blood Count 2.36L, Hemoglobin 7.8L, Hematocrit 24.6L, Mean Corpuscular Volume 104H, Mean Corpuscular Hemoglobin 32.9H, Mean Corpuscular Hemoglobin Concent 31.6L, Red Cell Distribution Width 16.1H, Platelet Count 410, Mean Platelet Volume 5.7L, Neutrophils (%) (Auto) , Lymphocytes (%) (Auto) , Monocytes (%) (Auto) , Eosinophils (%) (Auto) , Basophils (%) (Auto) , Differential Total Cells Counted 100, Neutrophils % ( Manual) 91H, Lymphocytes % (Manual) 6L, Monocytes % (Manual) 2, Eosinophils % ( Manual) 0, Basophils % (Manual) 1, Band Neutrophils 0, Nucleated Red Blood Cells 1, Platelet Estimate Adequate, Platelet Morphology Normal, Polychromasia 2 +, Hypochromasia 3+, Anisocytosis 1+, Macrocytosis 1+, Random Vancomycin Level 11.2 Current Medications Medications (Trade) Dose Ordered Sig/Lyndon Route PRN Reason Start Time Stop Time Status Last Admin Dose Admin Chlorhexidine Gluconate (Mayte-Hex 2%) 1 applic DAILY@2000 TOPIC 02/02/17 20:00 03/04/17 19:59 02/03/17 20:24 Heparin Sodium/ Sodium Chloride (Heparin 2000 units/Ns 1000ml premix) 2,000 unit ONCE PRN IV PICC PLACEMENT 02/03/17 14:00 02/04/17 23:59 Lidocaine HCl (Xylocaine 1% 30ml) 30 ml ONCE PRN INJ PICC PLACEMENT 02/03/17 14:00 02/04/17 23:59 Norepinephrine Bitartrate 4 mg/ Dextrose 250 ml @ 0 mls/hr Q24H IV 02/02/17 17:00 03/04/17 16:59 02/04/17 07:32 Pantoprazole (Protonix) 40 mg EVERY 12 HOURS IVP 02/02/17 21:00 03/04/17 20:59 02/03/17 21:06 Piperacillin/ Tazobactam/ Dextrose 50 ml @ 12.5 mls/hr Q12HR@1000,2200 IVPB 02/02/17 22:00 02/09/17 21:59 02/03/17 21:33 Sodium Chloride 1,000 ml @ 125 mls/hr Q8H IV 02/02/17 17:00 03/04/17 16:59 02/04/17 03:27 Vancomycin HCl (Vanco rx to dose) 1 ea DAILY PRN MISC Per rx protocol 02/02/17 17:00 03/04/17 16:59 Teja Adhikari MD Feb 04, 2017 09:03
[2017-02-04] MEDS: Pantoprazole Inj IVP SCH ×2 (09:11→20:32)
[2017-02-04] MEDS: Zosyn 3.375gm q8h **Extended infusion IVPB SCH ×2 (09:12→21:54)
--- NOTE | 2017-02-04 09:26 | General Progress Note ---
Assessment/Plan Assessment/Plan GI CONSULT Dictated Discussed with . Agrees with PEG. Will schedule for am Thank sheri Calderon MD Subjective Allergies: Coded Allergies: No Known Allergies (Unverified , 02/02/17) Objective Last 24 Hour Vital Signs Date Time Temp Pulse Resp B/P (MAP) Pulse Ox O2 Delivery O2 Flow Rate FiO2 02/04/17 07:32 95/60 02/04/17 07:00 75 18 95/60 97 Room Air 02/04/17 06:30 74 18 90/60 97 Room Air 02/04/17 06:23 80 02/04/17 06:00 75 18 85/41 97 Room Air 02/04/17 05:30 79 13 133/109 96 Room Air 02/04/17 05:00 125/64 02/04/17 05:00 78 17 125/64 97 Room Air 02/04/17 04:30 80 16 108/63 98 Room Air 02/04/17 04:00 98.0 78 16 105/53 98 Room Air 02/04/17 04:00 105/53 02/04/17 03:30 80 16 106/59 100 Room Air 02/04/17 03:00 75 14 118/53 100 Room Air 02/04/17 02:30 72 16 110/64 99 Room Air 02/04/17 02:00 108/64 02/04/17 02:00 74 16 108/64 99 Room Air 02/04/17 01:30 75 16 120/55 99 Room Air 02/04/17 01:00 105/59 02/04/17 01:00 76 17 105/59 99 Room Air 02/04/17 00:30 77 16 101/56 99 Room Air 02/04/17 00:00 98.2 81 16 105/59 100 Room Air 02/04/17 00:00 108/65 02/04/17 00:00 80 02/03/17 23:30 81 16 114/58 100 Room Air 02/03/17 23:00 80 16 93/80 100 Room Air 02/03/17 23:00 93/80 02/03/17 22:30 85 16 118/46 100 Room Air 02/03/17 22:00 87 16 117/64 100 Room Air 02/03/17 22:00 117/64 02/03/17 21:30 82 16 107/57 100 Room Air 02/03/17 21:00 79 16 98/50 99 Room Air 02/03/17 21:00 98/50 02/03/17 20:30 80 16 106/54 100 Room Air 02/03/17 20:00 101/47 02/03/17 20:00 82 02/03/17 20:00 98.6 82 15 101/47 100 Room Air 02/03/17 19:30 86 17 101/59 100 Room Air 02/03/17 19:00 85 16 101/52 98 Room Air 02/03/17 19:00 101/52 02/03/17 18:30 85 16 96/58 99 Room Air 02/03/17 18:00 93/55 02/03/17 18:00 85 16 93/55 99 Room Air 02/03/17 17:30 80 23 91/49 99 Room Air 02/03/17 17:00 79 15 100/47 99 Room Air 02/03/17 17:00 84/43 02/03/17 16:30 78 15 84/43 99 Room Air 02/03/17 16:00 98.3 80 24 99/39 97 Room Air 02/03/17 16:00 99/39 02/03/17 16:00 79 02/03/17 15:30 80 15 96/53 99 Room Air 02/03/17 15:00 100/50 02/03/17 15:00 85 14 94/53 99 Room Air 02/03/17 14:30 88 18 99/50 99 Room Air 02/03/17 14:00 88 18 100/60 99 Room Air 02/03/17 14:00 104/55 02/03/17 13:30 87 18 103/59 99 Room Air 02/03/17 13:00 98.4 88 24 97/56 97 Room Air 02/03/17 13:00 97/56 02/03/17 12:30 84 17 95/54 99 Room Air 02/03/17 12:00 84 02/03/17 12:00 84 19 97/52 99 Room Air 02/03/17 12:00 94/53 02/03/17 11:30 91 18 99/50 99 Room Air 02/03/17 11:00 86 18 101/48 99 Room Air 02/03/17 11:00 99/50 02/03/17 10:30 90 16 101/52 99 Nasal Cannula 2.0 02/03/17 10:00 95/51 02/03/17 10:00 90 19 96/46 97 Nasal Cannula 2.0 02/03/17 09:30 87 16 101/46 100 Nasal Cannula 2.0 Intake and Output 02/04/17 02/05/17 19:00 07:00 Intake Total 125 ml Output Total 20 ml Balance 105 ml Intake IV Total 125 ml Output Urine Total 20 ml Laboratory Tests 02/03/17 09:30: Lactic Acid Level 1.60 02/03/17 14:45: Sodium Level 155H, Potassium Level 3.6, Chloride Level 120H, Carbon Dioxide Level 23, Anion Gap 12, Blood Urea Nitrogen 46H, Creatinine 2.0H, Estimat Glomerular Filtration Rate , Glucose Level 162H, Calcium Level 8.0L 02/04/17 05:00: Sodium Level 158H, Potassium Level 2.9L, Chloride Level 123H, Carbon Dioxide Level 22, Anion Gap 13, Blood Urea Nitrogen 37H, Creatinine 1.5H, Estimat Glomerular Filtration Rate , Glucose Level 110H, Calcium Level 7.9L, White Blood Count 18.0H, Red Blood Count 2.36L, Hemoglobin 7.8L, Hematocrit 24.6L, Mean Corpuscular Volume 104H, Mean Corpuscular Hemoglobin 32.9H, Mean Corpuscular Hemoglobin Concent 31.6L, Red Cell Distribution Width 16.1H, Platelet Count 410, Mean Platelet Volume 5.7L, Neutrophils (%) (Auto) , Lymphocytes (%) (Auto) , Monocytes (%) (Auto) , Eosinophils (%) (Auto) , Basophils (%) (Auto) , Differential Total Cells Counted 100, Neutrophils % ( Manual) 91H, Lymphocytes % (Manual) 6L, Monocytes % (Manual) 2, Eosinophils % ( Manual) 0, Basophils % (Manual) 1, Band Neutrophils 0, Nucleated Red Blood Cells 1, Platelet Estimate Adequate, Platelet Morphology Normal, Polychromasia 2 +, Hypochromasia 3+, Anisocytosis 1+, Macrocytosis 1+, Random Vancomycin Level 11.2 Height (Feet): 5 Height (Inches): 6.00 Weight (Pounds): 134 RENEMAYITO RIOS Feb 04, 2017 09:26
[2017-02-04] MEDS ORDERED: D5 1/2NS 1,000 ML IV SCH (10:00)
[2017-02-04 10:01] LABS: ABG ALLEN TEST POSITIVE; ABG BASE EXCESS -3.9; ABG PCO2 28.3 mmHg (35.0-45.0)
[2017-02-04] MEDS ORDERED: Vancomycin 1gm in D5W 275ml IVPB ONE (11:00)
[2017-02-04] MEDS ORDERED: Potassium Chloride 40 MEQ in D5W 500ml 550 ML IV ONE (12:00)
--- NOTE | 2017-02-04 13:38 | Infectious Diseases Prog Note ---
Assessment/Plan Assessment/Plan antibiotics : vancomycin iv, zosyn A 1. gram negative UTI 2. shock 3. leucocytosis improving 4. HTN 5. ? gram positive sepsis P 1. continue vancomycin iv, zosyn 2. will follow up cultures Subjective ROS Limited/Unobtainable: Yes Allergies: Coded Allergies: No Known Allergies (Unverified , 02/02/17) Objective Vital Signs Last 24 Hour Vital Signs Date Time Temp Pulse Resp B/P (MAP) Pulse Ox O2 Delivery O2 Flow Rate FiO2 02/04/17 13:00 79 13 111/62 100 Room Air 02/04/17 12:00 73 02/04/17 12:00 97.4 82 13 101/75 99 Room Air 02/04/17 11:00 73 11 109/60 100 Room Air 02/04/17 10:00 73 15 105/58 100 Room Air 02/04/17 09:00 79 12 110/62 99 Room Air 02/04/17 08:30 72 18 126/62 99 Room Air 02/04/17 08:00 78 02/04/17 08:00 97.8 79 13 95/61 99 Room Air 02/04/17 07:32 95/60 02/04/17 07:00 75 18 95/60 97 Room Air 02/04/17 06:30 74 18 90/60 97 Room Air 02/04/17 06:23 80 02/04/17 06:00 75 18 85/41 97 Room Air 02/04/17 05:30 79 13 133/109 96 Room Air 02/04/17 05:00 125/64 02/04/17 05:00 78 17 125/64 97 Room Air 02/04/17 04:30 80 16 108/63 98 Room Air 02/04/17 04:00 98.0 78 16 105/53 98 Room Air 02/04/17 04:00 105/53 02/04/17 03:30 80 16 106/59 100 Room Air 02/04/17 03:00 75 14 118/53 100 Room Air 02/04/17 02:30 72 16 110/64 99 Room Air 02/04/17 02:00 108/64 02/04/17 02:00 74 16 108/64 99 Room Air 02/04/17 01:30 75 16 120/55 99 Room Air 02/04/17 01:00 105/59 02/04/17 01:00 76 17 105/59 99 Room Air 02/04/17 00:30 77 16 101/56 99 Room Air 02/04/17 00:00 98.2 81 16 105/59 100 Room Air 02/04/17 00:00 108/65 02/04/17 00:00 80 02/03/17 23:30 81 16 114/58 100 Room Air 02/03/17 23:00 80 16 93/80 100 Room Air 02/03/17 23:00 93/80 02/03/17 22:30 85 16 118/46 100 Room Air 02/03/17 22:00 87 16 117/64 100 Room Air 02/03/17 22:00 117/64 02/03/17 21:30 82 16 107/57 100 Room Air 02/03/17 21:00 79 16 98/50 99 Room Air 02/03/17 21:00 98/50 02/03/17 20:30 80 16 106/54 100 Room Air 02/03/17 20:00 101/47 02/03/17 20:00 82 02/03/17 20:00 98.6 82 15 101/47 100 Room Air 02/03/17 19:30 86 17 101/59 100 Room Air 02/03/17 19:00 85 16 101/52 98 Room Air 02/03/17 19:00 101/52 02/03/17 18:30 85 16 96/58 99 Room Air 02/03/17 18:00 93/55 02/03/17 18:00 85 16 93/55 99 Room Air 02/03/17 17:30 80 23 91/49 99 Room Air 02/03/17 17:00 79 15 100/47 99 Room Air 02/03/17 17:00 84/43 02/03/17 16:30 78 15 84/43 99 Room Air 02/03/17 16:00 98.3 80 24 99/39 97 Room Air 02/03/17 16:00 99/39 02/03/17 16:00 79 02/03/17 15:30 80 15 96/53 99 Room Air 02/03/17 15:00 100/50 02/03/17 15:00 85 14 94/53 99 Room Air 02/03/17 14:30 88 18 99/50 99 Room Air 02/03/17 14:00 88 18 100/60 99 Room Air 02/03/17 14:00 104/55 Height (Feet): 5 Height (Inches): 6.00 Weight (Pounds): 134 Respiratory/Chest: lungs clear Cardiovascular: normal rate, regular rhythm, no gallop/murmur Abdomen: soft, non tender Extremities: no edema Microbiology Date/Time Source Procedure Growth Status 02/02/17 13:10 Blood Blood Culture - Preliminary Resulted 02/02/17 13:00 Blood Blood Culture - Preliminary Staphylococcus Sp Coag Neg Resulted 02/02/17 16:00 Nasal Nares MRSA Culture - Final NO METHICILLIN RESISTANT STAPH AUREUS... Complete 02/02/17 19:50 Urine,Clean Catch Urine Culture - Preliminary Gram Negative Bacillus 1 Resulted 02/02/17 16:00 Rectum VRE Culture - Final Enterococcus Faecium - Vre Complete Laboratory Tests Test 02/03/17 14:45 02/04/17 05:00 02/04/17 09:03 Sodium Level 155 MMOL/L (136-145) H 158 MMOL/L (136-145) H Potassium Level 3.6 MMOL/L (3.5-5.1) 2.9 MMOL/L (3.5-5.1) L Chloride Level 120 MMOL/L (98-107) H 123 MMOL/L (98-107) H Carbon Dioxide Level 23 MMOL/L (21-32) 22 MMOL/L (21-32) Anion Gap 12 mmol/L (5-15) 13 mmol/L (5-15) Blood Urea Nitrogen 46 mg/dL (7-18) H 37 mg/dL (7-18) H Creatinine 2.0 MG/DL (0.55-1.30) H 1.5 MG/DL (0.55-1.30) H Estimat Glomerular Filtration Rate mL/min (>60) mL/min (>60) Glucose Level 162 MG/DL (74-106) H 110 MG/DL (74-106) H Calcium Level 8.0 MG/DL (8.5-10.1) L 7.9 MG/DL (8.5-10.1) L White Blood Count 18.0 K/UL (4.8-10.8) H Red Blood Count 2.36 M/UL (4.20-5.40) L Hemoglobin 7.8 G/DL (12.0-16.0) L Hematocrit 24.6 % (37.0-47.0) L Mean Corpuscular Volume 104 FL (80-99) H Mean Corpuscular Hemoglobin 32.9 PG (27.0-31.0) H Mean Corpuscular Hemoglobin Concent 31.6 G/DL (32.0-36.0) L Red Cell Distribution Width 16.1 % (11.6-14.8) H Platelet Count 410 K/UL (150-450) Mean Platelet Volume 5.7 FL (6.5-10.1) L Neutrophils (%) (Auto) % (45.0-75.0) Lymphocytes (%) (Auto) % (20.0-45.0) Monocytes (%) (Auto) % (1.0-10.0) Eosinophils (%) (Auto) % (0.0-3.0) Basophils (%) (Auto) % (0.0-2.0) Differential Total Cells Counted 100 Neutrophils % (Manual) 91 % (45-75) H Lymphocytes % (Manual) 6 % (20-45) L Monocytes % (Manual) 2 % (1-10) Eosinophils % (Manual) 0 % (0-3) Basophils % (Manual) 1 % (0-2) Band Neutrophils 0 % (0-8) Nucleated Red Blood Cells 1 /100 WBC Platelet Estimate Adequate Platelet Morphology Normal Polychromasia 2+ Hypochromasia 3+ Anisocytosis 1+ Macrocytosis 1+ Random Vancomycin Level 11.2 ug/mL Arterial Blood pH 7.454 (7.350-7.450) Arterial Blood Partial Pressure CO2 28.3 mmHg (35.0-45.0) L Arterial Blood Partial Pressure O2 80.4 mmHg (75.0-100.0) Arterial Blood HCO3 19.4 mmol/L (22.0-26.0) L Arterial Blood Oxygen Saturation 94.4 % (92.0-98.0) Arterial Blood Base Excess -3.9 Abhinav Test Positive HENRY SIMMS Feb 04, 2017 13:38
[2017-02-04] MEDS: Heparin 5000 units/ml inj SUBQ SCH ×2 (14:51→20:34)
--- NOTE | 2017-02-04 16:42 | Nephrology Progress Note ---
Assessment/Plan Problem List: (1) Septic shock (2) Hypotension (3) Anemia (4) Hypernatremia (5) Hypokalemia (6) Dehydration (7) Renal failure (ARF), acute on chronic Plan Consult dictated - [id number] Subjective ROS Limited/Unobtainable: Yes Subjective In no apparent distress Objective Objective Last 24 Hour Vital Signs Date Time Temp Pulse Resp B/P (MAP) Pulse Ox O2 Delivery O2 Flow Rate FiO2 02/04/17 16:00 97.6 84 17 94/52 99 Room Air 02/04/17 16:00 77 02/04/17 15:00 82 25 94/52 100 Room Air 02/04/17 14:00 78 16 116/79 100 Room Air 02/04/17 13:00 79 13 111/62 100 Room Air 02/04/17 12:00 73 02/04/17 12:00 97.4 82 13 101/75 99 Room Air 02/04/17 11:00 73 11 109/60 100 Room Air 02/04/17 10:00 73 15 105/58 100 Room Air 02/04/17 09:00 79 12 110/62 99 Room Air 02/04/17 08:30 72 18 126/62 99 Room Air 02/04/17 08:00 78 02/04/17 08:00 97.8 79 13 95/61 99 Room Air 02/04/17 07:32 95/60 02/04/17 07:00 75 18 95/60 97 Room Air 02/04/17 06:30 74 18 90/60 97 Room Air 02/04/17 06:23 80 02/04/17 06:00 75 18 85/41 97 Room Air 02/04/17 05:30 79 13 133/109 96 Room Air 02/04/17 05:00 125/64 02/04/17 05:00 78 17 125/64 97 Room Air 02/04/17 04:30 80 16 108/63 98 Room Air 02/04/17 04:00 98.0 78 16 105/53 98 Room Air 02/04/17 04:00 105/53 02/04/17 03:30 80 16 106/59 100 Room Air 02/04/17 03:00 75 14 118/53 100 Room Air 02/04/17 02:30 72 16 110/64 99 Room Air 02/04/17 02:00 108/64 02/04/17 02:00 74 16 108/64 99 Room Air 02/04/17 01:30 75 16 120/55 99 Room Air 02/04/17 01:00 105/59 02/04/17 01:00 76 17 105/59 99 Room Air 02/04/17 00:30 77 16 101/56 99 Room Air 02/04/17 00:00 98.2 81 16 105/59 100 Room Air 02/04/17 00:00 108/65 02/04/17 00:00 80 02/03/17 23:30 81 16 114/58 100 Room Air 02/03/17 23:00 80 16 93/80 100 Room Air 02/03/17 23:00 93/80 02/03/17 22:30 85 16 118/46 100 Room Air 02/03/17 22:00 87 16 117/64 100 Room Air 02/03/17 22:00 117/64 02/03/17 21:30 82 16 107/57 100 Room Air 02/03/17 21:00 79 16 98/50 99 Room Air 02/03/17 21:00 98/50 02/03/17 20:30 80 16 106/54 100 Room Air 02/03/17 20:00 101/47 02/03/17 20:00 82 02/03/17 20:00 98.6 82 15 101/47 100 Room Air 02/03/17 19:30 86 17 101/59 100 Room Air 02/03/17 19:00 85 16 101/52 98 Room Air 02/03/17 19:00 101/52 02/03/17 18:30 85 16 96/58 99 Room Air 02/03/17 18:00 93/55 02/03/17 18:00 85 16 93/55 99 Room Air 02/03/17 17:30 80 23 91/49 99 Room Air 02/03/17 17:00 79 15 100/47 99 Room Air 02/03/17 17:00 84/43 Intake and Output 02/04/17 02/05/17 19:00 07:00 Intake Total 786.2 ml Output Total 315 ml Balance 471.2 ml Intake IV Total 786.2 ml Output Urine Total 315 ml Laboratory Tests 02/04/17 05:00: White Blood Count 18.0H, Red Blood Count 2.36L, Hemoglobin 7.8L, Hematocrit 24.6L, Mean Corpuscular Volume 104H, Mean Corpuscular Hemoglobin 32.9H, Mean Corpuscular Hemoglobin Concent 31.6L, Red Cell Distribution Width 16.1H, Platelet Count 410, Mean Platelet Volume 5.7L, Neutrophils (%) (Auto) , Lymphocytes (%) (Auto) , Monocytes (%) (Auto) , Eosinophils (%) (Auto) , Basophils (%) (Auto) , Differential Total Cells Counted 100, Neutrophils % ( Manual) 91H, Lymphocytes % (Manual) 6L, Monocytes % (Manual) 2, Eosinophils % ( Manual) 0, Basophils % (Manual) 1, Band Neutrophils 0, Nucleated Red Blood Cells 1, Platelet Estimate Adequate, Platelet Morphology Normal, Polychromasia 2 +, Hypochromasia 3+, Anisocytosis 1+, Macrocytosis 1+, Sodium Level 158H, Potassium Level 2.9L, Chloride Level 123H, Carbon Dioxide Level 22, Anion Gap 13 , Blood Urea Nitrogen 37H, Creatinine 1.5H, Estimat Glomerular Filtration Rate , Glucose Level 110H, Calcium Level 7.9L, Random Vancomycin Level 11.2 02/04/17 09:03: Arterial Blood pH 7.454H, Arterial Blood Partial Pressure CO2 28.3L, Arterial Blood Partial Pressure O2 80.4, Arterial Blood HCO3 19.4L, Arterial Blood Oxygen Saturation 94.4, Arterial Blood Base Excess -3.9, Abhinav Test Positive Height (Feet): 5 Height (Inches): 6.00 Weight (Pounds): 134 General Appearance: no apparent distress, confused, other - non verbal EENT: normal ENT inspection Neck: non-tender Cardiovascular: normal rate, no JVD Respiratory/Chest: decreased breath sounds Abdomen: normal bowel sounds, soft Extremities: non-tender Neurologic: motor weakness, other - non verbal Seble Moody N.P. Feb 04, 2017 16:42
[2017-02-04] MEDS ORDERED: NS 275ml ONE (17:23)
[2017-02-04] MEDS: D5W w/KCl 20mEq 1,000 ML IV SCH (18:12)
[2017-02-04] MEDS: Dyna-Hex 2% Top Sol 2oz TOPIC SCH (20:12)
--- NOTE | 2017-02-04 21:45 | Consultation ---
DATE OF CONSULTATION: 02/04/2017 NEPHROLOGY CONSULTATION CONSULTING PHYSICIAN: Reg Cadena M.D. HISTORY OF PRESENT ILLNESS: I mentioned that this patient is nonverbal. Therefore, history was obtained from medical records and past dictations. This is an 81-year-old, female with a past medical history significant for dementia, UTI, and hypertension, who was brought to this hospital from home with increasing altered mental status. According to the records, the patient was less responsive than before, was found to be hypotensive and hyponatremic with acute renal failure, had lactic acidosis and elevated troponin. The patient was therefore admitted for further evaluation and was transferred to the ICU and started on Levophed, which is off at this time. This consultation was initiated due to hypernatremia, acute on chronic kidney disease, and hypokalemia. The patient is in bed at this time in no apparent distress in the ICU. PAST MEDICAL HISTORY: Significant for dementia, hypertension, and history of failure to thrive. HOME MEDICATIONS: Unobtainable at this time. ALLERGIES: No known allergies. SOCIAL HISTORY: The patient resided in a snf until recently when she was discharged home. No history of alcohol use. No smoking history. No history of illicit drug use. REVIEW OF SYSTEMS: Unobtainable at this time due to the patient's altered mental status and nonverbal status. PHYSICAL EXAMINATION: GENERAL: This is an 81-year-old female, seen in the ICU, in no apparent distress. VITAL SIGNS: Blood pressure 94/52, heart rate is 84, respiratory rate 17, temperature is 97.6, O2 saturation is 99% on room air. HEENT: Head is normocephalic and atraumatic. NECK: Supple. No JVD noted. LUNGS: Diminished bilaterally. CARDIOVASCULAR: Regular rate and rhythm. ABDOMEN: Soft, nontender, and nondistended. EXTREMITIES: Left lower extremity edema 2+ is noted. Right lower extremity, no edema, no cyanosis, no clubbing. However, dressing noted on the right heel. GENITOURINARY: The patient has a Crockett catheter draining to gravity. NEUROLOGIC: Altered. LABORATORY AND DIAGNOSTIC DATA: CBC, white count 18.0, hemoglobin 7.8, hematocrit 24.6, and a platelet count of 410,000. BMP, sodium 158, potassium 2.9, chloride 123, bicarbonate is 22, BUN 37, creatinine 1.5, and a blood glucose of 110. Troponin also is elevated at 1.182. Cardiologic findings, chest x-ray findings, cardiomediastinal appearance is within normal limits for age. Pulmonary vascularity is appropriate. The diaphragmatic contour is smooth and costophrenic angles are sharp. No pleural effusions identified. The bones are osteopenic. Impression, no acute findings. ASSESSMENT: 1. Hypernatremia. 2. Hypokalemia. 3. Dehydration. 4. Acute kidney injury on chronic kidney disease. 5. Anemia, worsening. 6. Altered mental status. 7. Hypotension. 8. Dementia. PLAN: We will start the patient on D5W plus 40 mEq of potassium at 125 mL an hour to correct sodium and potassium. We will obtain a stool for OB. Gastrointestinal consult is recommended for this patient. We will monitor hemoglobin and hematocrit and transfuse as needed. We will monitor renal function. We will obtain a renal ultrasound as well. Monitor intake and output. We will monitor blood pressure and may continue on Levophed. We will monitor the patient's neurological status as well. This case has been discussed with Dr. Cadena. Reg Cadena M.D. Seble Moody DR: Aniya JOB#: [id number] CC: JAMES
[2017-02-05] VITALS (41 sets, daily range): BP systolic 94–132; BP diastolic 43–84
--- NOTE | 2017-02-05 | Progress Note ---
DATE: 02/04/2017 CARDIOLOGY PROGRESS NOTE SUBJECTIVE: The patient remains in the intensive care unit with critical condition and guarded prognosis. She continues on pressor support with efforts to taper. OBJECTIVE: VITAL SIGNS: Reveal blood pressure range in the 90 to 100 systolic range. She remains withdrawn. Monitored rhythm sinus with atrial ectopy. LUNGS: Bilateral breath sounds. HEART: Regular rhythm and rate. Normal S1 and S2. ABDOMEN: Soft. No guarding. EXTREMITIES: With muscle atrophy. No edema. LABORATORY STUDIES: Urine culture is positive for gram-negative bacillus. White count is 18 and hemoglobin 7.8. Sodium 158, potassium 2.9, chloride 123, bicarb 22, BUN 37, and creatinine 1.5. ABG, pH 7.45, pCO2 28, and pO2 80. IMPRESSION: 1. Severe sepsis with shock due to urinary tract infection. 2. Leukocytosis. 3. Anemia. 4. Macrocytosis. 5. Dehydration. 6. Hypernatremia. 7. Hypovolemia. 8. Acute on chronic renal failure, improved. 9. Hypokalemia. 10. Hyperchloremia. 11. ACUTE MYOCARDIAL INFARCTION: PLAN: 1. Transition to hypotonic IV fluids. Continue pressor support and taper as able. 2. Consider beta-ann once off pressors. 3. DVT and stress ulcer prophylaxis. 4. Antimicrobials, per Infectious Disease corporate health consultant. 5. Hold anti-platelet therapy in anticipation of possible PEG. Audi Garcia M.D. DR: Isidro JOB#: [id number] CC:
[2017-02-05] MEDS: D5W w/KCl 20mEq 1,000 ML IV SCH ×4 (01:15→22:38)
--- NOTE | 2017-02-05 02:00 | Consultation ---
DATE OF CONSULTATION: 02/04/2017 GASTROLOGY CONSULTATION CHIEF COMPLAINT: I was asked to see this patient by Dr. Alfredo Adhikari for evaluation of dysphagia and gastrostomy tube placement. HISTORY OF PRESENT ILLNESS: The patient is an unfortunate 81-year-old woman, who has had admissions and discharges from the hospital. She is frail, debilitated, and has had a poor oral intake. In addition, she has been found to be at aspiration risk due to her altered mental status. She is now in this hospital due to failure to thrive and dehydration. She was hypotensive and tachycardic and hypernatremic on admission. She is being treated supportively. The patient's management was discussed with her son. They agree with gastrostomy tube placement for long-term enteral access and nutrition. The indications, risks, alternatives, and possible complications of the procedure were explained to the patient's son and informed consent was obtained. PAST MEDICAL HISTORY: History of dementia, poor swallow function, dehydration, malnutrition, and free water deficit. ALLERGIES: None. FAMILY HISTORY: Noncontributory. SOCIAL HISTORY: The patient lives in [facility]. She has had no recent history of smoking or drinking. Her son looks after her. REVIEW OF SYSTEMS: Otherwise, negative. PHYSICAL EXAMINATION: GENERAL: The patient is a debilitated woman, who is minimally interactive, seen in the intensive care unit. HEENT: Normocephalic and atraumatic. Sclerae anicteric. NECK: Supple. CHEST: Clear to auscultation. CARDIOVASCULAR: Revealed a regular rate. ABDOMEN: Soft. Good bowel sounds. EXTREMITIES: No edema. LABORATORY DATA: Laboratory data as noted. ASSESSMENT: This patient presents with dehydration, free water deficit, malnutrition, and poor swallow noted. She would benefit from gastrostomy tube for long-term enteral access and nutrition. This can be placed tomorrow. In the meantime, we will change her IV fluids from normal saline to half-normal saline to help reduce her sodium level. If necessary, this can be changed to D5W at a later date. I will repeat her laboratories tomorrow. RECOMMENDATIONS: Per above discussion and per orders written in the chart. Thank you for asking me to participate in the care of this patient. Jose Calderon M.D. DR: STANISLAV JOB#: [id number] CC:
[2017-02-05 05:36] LABS: MEAN CORPUSCULAR HEMOGLOBIN 30.9 PG (27.0-31.0); MEAN CORPUSCULAR HGB CONC 29.6 G/DL (32.0-36.0); MEAN CORPUSCULAR VOLUME 104 FL (80-99); MEAN PLATELET VOLUME 5.4 FL (6.5-10.1); PLATELET COUNT 380 K/UL (150-450); RED BLOOD COUNT 2.17 M/UL (4.20-5.40); RED CELL DISTRIBUTION WIDTH 15.7 % (11.6-14.8); WHITE BLOOD COUNT 14.3 K/UL (4.8-10.8)
[2017-02-05 06:19] LABS: ANION GAP 10 mmol/L (5-15); CALCIUM 8.2 MG/DL (8.5-10.1); CARBON DIOXIDE 23 MMOL/L (21-32); CHLORIDE 118 MMOL/L (98-107); CREATININE 1.2 MG/DL (0.55-1.30); POTASSIUM 3.3 MMOL/L (3.5-5.1); SODIUM 151 MMOL/L (136-145)
--- NOTE | 2017-02-05 09:00 | Pulmonology Progress Note ---
Assessment/Plan Assessment/Plan IMPRESSION: 1. Multiorgan system failure. 2. Sepsis. 3. Decubiti. 4. Dehydration. 5. Hypernatremia. 6. Hypovolemia. 7. Hyperchloremia. 8. Acute on chronic renal failure 9. Secondary sinus tachycardia. 10. Dementia with episodes of agitation. 11. Lactic acidosis. 12. GI bleed/anemia 13. Acute R DVT PLAN: 1. ICU monitoring. 2. Volume support with saline until euvolemic, then transition to hypotonic IV fluids. 3. Wean off Levophed as blood pressure parameters improve. 4. Broad-spectrum antibiotics. 5. Respiratory hygiene. 6. DVT and stress ulcer prophylaxis. 7. Serial troponin levels. 8. Repeat lactic acid level. 9. Anti-platelet therapy. 10. Consider beta-ann once hemodynamically stable. 11. Cardiology consult appreciated 12. GI consult called re PEG 13. Endoscopy today 14. Transfuse 15. Discussed with and son in detail at bedside 16. Discussed with RN 17. Will request IVC filter for extensive DVT 18. PICC line insertion today Subjective Interval Events: Black stools noted; Hgb 6.7 this Am Constitutional: Reports: no symptoms HEENT: Repors: no symptoms Respiratory: Reports: no symptoms Cardiovascular: Reports: no symptoms Gastrointestinal/Abdominal: Reports: blood in stool Genitourinary: Reports: no symptoms Neurologic: Reports: no symptoms Allergies: Coded Allergies: No Known Allergies (Unverified , 02/02/17) Objective Last 24 Hour Vital Signs Date Time Temp Pulse Resp B/P (MAP) Pulse Ox O2 Delivery O2 Flow Rate FiO2 02/05/17 06:45 80 18 100/53 100 Room Air 02/05/17 06:30 81 20 103/56 100 Room Air 02/05/17 06:15 81 20 101/49 100 Room Air 02/05/17 06:00 83 13 103/46 100 Room Air 02/05/17 06:00 103/46 02/05/17 05:45 77 12 94/54 100 Room Air 02/05/17 05:30 77 12 100/62 100 Room Air 02/05/17 05:15 81 14 114/70 100 Room Air 02/05/17 05:00 98.7 93 13 101/63 100 Room Air 02/05/17 05:00 103/55 02/05/17 04:30 78 17 103/49 100 Room Air 02/05/17 04:15 78 18 118/52 100 Room Air 02/05/17 04:00 106/53 02/05/17 04:00 80 02/05/17 04:00 80 14 107/53 100 Room Air 02/05/17 03:45 76 14 106/53 100 Room Air 02/05/17 03:30 76 18 110/48 100 Room Air 02/05/17 03:15 81 19 132/61 100 Room Air 02/05/17 03:00 75 20 101/51 100 Room Air 02/05/17 03:00 109/53 02/05/17 02:45 77 20 109/53 100 Room Air 02/05/17 02:30 78 21 100/51 100 Room Air 02/05/17 02:15 77 20 98/57 100 Room Air 02/05/17 02:00 84 21 104/56 100 Room Air 02/05/17 02:00 104/56 02/05/17 01:45 77 21 94/44 100 Room Air 02/05/17 01:30 77 21 94/44 100 Room Air 02/05/17 01:00 77 23 103/52 100 Room Air 02/05/17 01:00 94/45 02/05/17 00:45 80 23 103/52 100 Room Air 02/05/17 00:30 78 24 98/43 100 Room Air 02/05/17 00:15 98.3 80 23 104/50 100 Room Air 02/05/17 00:00 82 02/05/17 00:00 82 22 102/47 100 Room Air 02/05/17 00:00 102/47 02/04/17 23:45 74 19 90/44 100 Room Air 02/04/17 23:30 75 21 93/42 100 Room Air 02/04/17 23:15 77 24 105/49 100 Room Air 02/04/17 23:12 74/61 02/04/17 23:00 82 22 98/51 100 Room Air 02/04/17 22:45 86 18 80/39 99 Room Air 02/04/17 22:30 88 17 78/41 100 Room Air 02/04/17 22:15 89 18 76/39 100 Room Air 02/04/17 22:00 90 17 84/43 100 Room Air 02/04/17 21:00 93 19 74/61 99 Room Air 02/04/17 20:00 98.4 97 17 89/42 100 Room Air 02/04/17 20:00 97 02/04/17 19:30 89 18 86/40 100 Room Air 02/04/17 19:00 90 18 86/46 100 Room Air 02/04/17 18:00 84 18 96/43 100 Room Air 02/04/17 17:00 83 18 101/54 100 Room Air 02/04/17 16:00 97.6 84 17 94/52 99 Room Air 02/04/17 16:00 77 02/04/17 15:00 82 25 94/52 100 Room Air 02/04/17 14:00 78 16 116/79 100 Room Air 02/04/17 13:00 79 13 111/62 100 Room Air 02/04/17 12:00 73 02/04/17 12:00 97.4 82 13 101/75 99 Room Air 02/04/17 11:00 73 11 109/60 100 Room Air 02/04/17 10:00 73 15 105/58 100 Room Air 02/04/17 09:00 79 12 110/62 99 Room Air Intake and Output 02/05/17 02/06/17 19:00 07:00 Output Total 20 ml Balance -20 ml Output Urine Total 20 ml General Appearance: no acute distress HEENT: normocephalic, atraumatic Respiratory/Chest: chest wall non-tender, lungs clear Cardiovascular: normal peripheral pulses, normal rate Abdomen: normal bowel sounds, soft, non tender Microbiology Date/Time Source Procedure Growth Status 02/02/17 13:10 Blood Blood Culture - Final Staphylococcus Sp Coag Neg Complete 02/02/17 13:00 Blood Blood Culture - Final Staphylococcus Sp Coag Neg Complete 02/02/17 16:00 Nasal Nares MRSA Culture - Final NO METHICILLIN RESISTANT STAPH AUREUS... Complete 02/02/17 19:50 Urine,Clean Catch Urine Culture - Preliminary Gram Negative Bacillus 1 Resulted 02/02/17 16:00 Rectum VRE Culture - Final Enterococcus Faecium - Vre Complete Laboratory Tests 02/04/17 09:03: Arterial Blood pH 7.454H, Arterial Blood Partial Pressure CO2 28.3L, Arterial Blood Partial Pressure O2 80.4, Arterial Blood HCO3 19.4L, Arterial Blood Oxygen Saturation 94.4, Arterial Blood Base Excess -3.9, Abhinav Test Positive 02/05/17 05:00: White Blood Count 14.3H, Red Blood Count 2.17L, Hemoglobin 6.7*L, Hematocrit 22.6L, Mean Corpuscular Volume 104H, Mean Corpuscular Hemoglobin 30.9, Mean Corpuscular Hemoglobin Concent 29.6L, Red Cell Distribution Width 15.7H, Platelet Count 380, Mean Platelet Volume 5.4L, Neutrophils (%) (Auto) , Lymphocytes (%) (Auto) , Monocytes (%) (Auto) , Eosinophils (%) (Auto) , Basophils (%) (Auto) , Neutrophils % (Manual) [Pending], Lymphocytes % (Manual) [Pending], Platelet Estimate [Pending], Platelet Morphology [Pending], Sodium Level 151H, Potassium Level 3.3L, Chloride Level 118H, Carbon Dioxide Level 23, Anion Gap 10, Blood Urea Nitrogen 25H, Creatinine 1.2, Estimat Glomerular Filtration Rate , Glucose Level 149H, Calcium Level 8.2L, Troponin I 0.182H, Pro -B-Type Natriuretic Peptide 7321H Current Medications Medications (Trade) Dose Ordered Sig/Lyndon Route PRN Reason Start Time Stop Time Status Last Admin Dose Admin Chlorhexidine Gluconate (Mayte-Hex 2%) 1 applic DAILY@1999 TOPIC 02/02/17 20:00 03/04/17 19:59 02/04/17 20:12 Dextrose/ Electrolytes 1,000 ml @ 125 mls/hr Q8H IV 02/04/17 17:00 03/06/17 16:59 02/05/17 01:15 Heparin Sodium (Porcine) (Heparin 5000 units/ml) 5,000 units EVERY 12 HOURS SUBQ 02/04/17 14:30 03/06/17 14:29 02/04/17 20:34 Norepinephrine Bitartrate 4 mg/ Dextrose 250 ml @ 0 mls/hr Q24H IV 02/02/17 17:00 03/04/17 16:59 02/04/17 23:12 Pantoprazole (Protonix) 40 mg EVERY 12 HOURS IVP 02/02/17 21:00 03/04/17 20:59 02/04/17 20:32 Piperacillin/ Tazobactam/ Dextrose 50 ml @ 12.5 mls/hr Q12HR@1000,2200 IVPB 02/02/17 22:00 02/09/17 21:59 02/04/17 21:54 Potassium Chloride 100 ml @ 50 mls/hr ONCE ONCE IVPB 02/05/17 08:00 02/05/17 09:59 Vancomycin HCl (Vanco rx to dose) 1 ea DAILY PRN MISC Per rx protocol 02/02/17 17:00 03/04/17 16:59 Vancomycin/Sodium Chloride 250 ml @ 166.667 mls/hr Q24H IVPB 02/05/17 10:00 02/10/17 09:59 Teja Adhikari MD Feb 05, 2017 09:00
[2017-02-05] MEDS: Pantoprazole Inj IVP SCH ×2 (09:02→20:45)
[2017-02-05 09:24] LABS: BAND NEUTROPHILS % (MANUAL) 0 % (0-8); BASOPHILS % (MANUAL) 0 % (0-2); EOSINOPHILS % (MANUAL) 0 % (0-3); HYPOCHROMASIA 3+; LYMPHOCYTES % (MANUAL) 14 % (20-45); NEUTROPHILS % (MANUAL) 82 % (45-75); PLATELET ESTIMATE ADEQUATE; TOTAL CELLS COUNTED 100
[2017-02-05 09:25] LABS: MACROCYTES 1+; PLATELET MORPHOLOGY NORMAL
--- NOTE | 2017-02-05 09:25 | Infectious Diseases Prog Note ---
Assessment/Plan Assessment/Plan A: 1. E. coli/G+ UTI 2. shock resolving 3. leucocytosis improving 4. HPN 5. Positive blood culture for CoANS likely contamination P 1. discontinue vancomycin iv, continue Zosyn 2. will follow up cultures Subjective ROS Limited/Unobtainable: Yes Cardiovascular: Reports: other - off Levophed Gastrointestinal/Abdominal: Reports: other - black stool , NPO Allergies: Coded Allergies: No Known Allergies (Unverified , 02/02/17) Objective Vital Signs Last 24 Hour Vital Signs Date Time Temp Pulse Resp B/P (MAP) Pulse Ox O2 Delivery O2 Flow Rate FiO2 02/05/17 08:00 84 02/05/17 06:45 80 18 100/53 100 Room Air 02/05/17 06:30 81 20 103/56 100 Room Air 02/05/17 06:15 81 20 101/49 100 Room Air 02/05/17 06:00 83 13 103/46 100 Room Air 02/05/17 06:00 103/46 02/05/17 05:45 77 12 94/54 100 Room Air 02/05/17 05:30 77 12 100/62 100 Room Air 02/05/17 05:15 81 14 114/70 100 Room Air 02/05/17 05:00 98.7 93 13 101/63 100 Room Air 02/05/17 05:00 103/55 02/05/17 04:30 78 17 103/49 100 Room Air 02/05/17 04:15 78 18 118/52 100 Room Air 02/05/17 04:00 106/53 02/05/17 04:00 80 02/05/17 04:00 80 14 107/53 100 Room Air 02/05/17 03:45 76 14 106/53 100 Room Air 02/05/17 03:30 76 18 110/48 100 Room Air 02/05/17 03:15 81 19 132/61 100 Room Air 02/05/17 03:00 75 20 101/51 100 Room Air 02/05/17 03:00 109/53 02/05/17 02:45 77 20 109/53 100 Room Air 02/05/17 02:30 78 21 100/51 100 Room Air 02/05/17 02:15 77 20 98/57 100 Room Air 02/05/17 02:00 84 21 104/56 100 Room Air 02/05/17 02:00 104/56 02/05/17 01:45 77 21 94/44 100 Room Air 02/05/17 01:30 77 21 94/44 100 Room Air 02/05/17 01:00 77 23 103/52 100 Room Air 02/05/17 01:00 94/45 02/05/17 00:45 80 23 103/52 100 Room Air 02/05/17 00:30 78 24 98/43 100 Room Air 02/05/17 00:15 98.3 80 23 104/50 100 Room Air 02/05/17 00:00 82 02/05/17 00:00 82 22 102/47 100 Room Air 02/05/17 00:00 102/47 02/04/17 23:45 74 19 90/44 100 Room Air 02/04/17 23:30 75 21 93/42 100 Room Air 02/04/17 23:15 77 24 105/49 100 Room Air 02/04/17 23:12 74/61 02/04/17 23:00 82 22 98/51 100 Room Air 02/04/17 22:45 86 18 80/39 99 Room Air 02/04/17 22:30 88 17 78/41 100 Room Air 02/04/17 22:15 89 18 76/39 100 Room Air 02/04/17 22:00 90 17 84/43 100 Room Air 02/04/17 21:00 93 19 74/61 99 Room Air 02/04/17 20:00 98.4 97 17 89/42 100 Room Air 02/04/17 20:00 97 02/04/17 19:30 89 18 86/40 100 Room Air 02/04/17 19:00 90 18 86/46 100 Room Air 02/04/17 18:00 84 18 96/43 100 Room Air 02/04/17 17:00 83 18 101/54 100 Room Air 02/04/17 16:00 97.6 84 17 94/52 99 Room Air 02/04/17 16:00 77 02/04/17 15:00 82 25 94/52 100 Room Air 02/04/17 14:00 78 16 116/79 100 Room Air 02/04/17 13:00 79 13 111/62 100 Room Air 02/04/17 12:00 73 02/04/17 12:00 97.4 82 13 101/75 99 Room Air 02/04/17 11:00 73 11 109/60 100 Room Air 02/04/17 10:00 73 15 105/58 100 Room Air Height (Feet): 5 Height (Inches): 6.00 Weight (Pounds): 128 General Appearance: no acute distress HEENT: mucous membranes moist Respiratory/Chest: lungs clear Cardiovascular: normal rate Abdomen: soft, non tender Extremities: other - edema of left leg, right femoral line Skin: ulcers Neurologic/Psychiatric: other - opens eyes Microbiology Date/Time Source Procedure Growth Status 02/02/17 13:10 Blood Blood Culture - Final Staphylococcus Sp Coag Neg Complete 02/02/17 13:00 Blood Blood Culture - Final Staphylococcus Sp Coag Neg Complete 02/02/17 16:00 Nasal Nares MRSA Culture - Final NO METHICILLIN RESISTANT STAPH AUREUS... Complete 02/02/17 19:50 Urine,Clean Catch Urine Culture - Preliminary Escherichia Coli Gram Positive Cocci Resulted 02/02/17 16:00 Rectum VRE Culture - Final Enterococcus Faecium - Vre Complete Laboratory Tests Test 02/05/17 05:00 White Blood Count 14.3 K/UL (4.8-10.8) H Red Blood Count 2.17 M/UL (4.20-5.40) L Hemoglobin 6.7 G/DL (12.0-16.0) *L Hematocrit 22.6 % (37.0-47.0) L Mean Corpuscular Volume 104 FL (80-99) H Mean Corpuscular Hemoglobin 30.9 PG (27.0-31.0) Mean Corpuscular Hemoglobin Concent 29.6 G/DL (32.0-36.0) L Red Cell Distribution Width 15.7 % (11.6-14.8) H Platelet Count 380 K/UL (150-450) Mean Platelet Volume 5.4 FL (6.5-10.1) L Neutrophils (%) (Auto) % (45.0-75.0) Lymphocytes (%) (Auto) % (20.0-45.0) Monocytes (%) (Auto) % (1.0-10.0) Eosinophils (%) (Auto) % (0.0-3.0) Basophils (%) (Auto) % (0.0-2.0) Neutrophils % (Manual) Pending Lymphocytes % (Manual) Pending Platelet Estimate Pending Platelet Morphology Pending Sodium Level 151 MMOL/L (136-145) H Potassium Level 3.3 MMOL/L (3.5-5.1) L Chloride Level 118 MMOL/L (98-107) H Carbon Dioxide Level 23 MMOL/L (21-32) Anion Gap 10 mmol/L (5-15) Blood Urea Nitrogen 25 mg/dL (7-18) H Creatinine 1.2 MG/DL (0.55-1.30) Estimat Glomerular Filtration Rate mL/min (>60) Glucose Level 149 MG/DL (74-106) H Calcium Level 8.2 MG/DL (8.5-10.1) L Troponin I 0.182 ng/mL (0.000-0.056) Pro-B-Type Natriuretic Peptide 7321 pg/mL (0-125) H Current Medications Medications (Trade) Dose Ordered Sig/Lyndon Route PRN Reason Start Time Stop Time Status Last Admin Dose Admin Chlorhexidine Gluconate (Mayte-Hex 2%) 1 applic DAILY@2000 TOPIC 02/02/17 20:00 03/04/17 19:59 02/04/17 20:12 Dextrose/ Electrolytes 1,000 ml @ 125 mls/hr Q8H IV 02/04/17 17:00 03/06/17 16:59 02/05/17 01:15 Norepinephrine Bitartrate 4 mg/ Dextrose 250 ml @ 0 mls/hr Q24H IV 02/02/17 17:00 03/04/17 16:59 02/04/17 23:12 Pantoprazole (Protonix) 40 mg EVERY 12 HOURS IVP 02/02/17 21:00 03/04/17 20:59 02/05/17 09:02 Piperacillin/ Tazobactam/ Dextrose 50 ml @ 12.5 mls/hr Q12HR@1000,2200 IVPB 02/02/17 22:00 02/09/17 21:59 02/04/17 21:54 Potassium Chloride 100 ml @ 50 mls/hr ONCE ONCE IVPB 02/05/17 08:00 02/05/17 09:59 Vancomycin HCl (Vanco rx to dose) 1 ea DAILY PRN MISC Per rx protocol 02/02/17 17:00 03/04/17 16:59 Vancomycin/Sodium Chloride 250 ml @ 166.667 mls/hr Q24H IVPB 02/05/17 10:00 02/10/17 09:59 MITA GUSTAFSON Feb 05, 2017 09:25
[2017-02-05] MEDS ORDERED: NS 500ML IV ONE (09:42)
[2017-02-05] MEDS ORDERED: Midazolam 2mg/2ml Inj ONE (09:46)
[2017-02-05] MEDS ORDERED: Propofol 200mg/20ml IV ONE ×3 (09:46→11:05)
[2017-02-05] MEDS ORDERED: Lidocaine 1% Plain 30 ml INJ ONE ×2 (09:46→10:15)
[2017-02-05] MEDS ORDERED: LR 1000ml ONE (09:46)
[2017-02-05] MEDS ORDERED: Vancomycin 750mg/NS 250ml IVPB SCH (10:00)
--- NOTE | 2017-02-05 10:01 | Anethesia Preoperative Eval ---
Anesthesia Pre-op PMH/ROS General Date of Evaluation: Feb 05, 2017 Time of Evaluation: 09:46 Anesthesiologist: Judy ASA Score: ASA 4 Mallampati Score Class I : Soft palate, uvula, fauces, pillars visible Class II: Soft palate, uvula, fauces visible Class III: Soft palate, base of uvula visible Class IV: Only hard plate visible Mallampati Classification: Class II Surgeon: Yumiko Diagnosis: GI Bleed Surgical Procedure: EGD Anesthesia History: none Family History: no anesthesia problems Allergies: Coded Allergies: No Known Allergies (Unverified , 02/02/17) Medications: see eMAR Past Medical History Cardiovascular: Reports: HTN Gastrointestinal/Genitourinary: Reports: other - Anuria Neurologic/Psychiatric: Reports: dementia - Alzheimers Hematology/Immune: Reports: anemia, DVT, other - Severe Sepsis Anesthesia Pre-op Phys. Exam Physician Exam Last Vital Signs Date Time Temp Pulse Resp B/P (MAP) Pulse Ox O2 Delivery O2 Flow Rate FiO2 02/05/17 08:00 84 02/05/17 06:45 18 100/53 100 Room Air 02/05/17 05:00 98.7 02/03/17 13:00 Constitutional: NAD Neurologic: CN 2-12 intact Cardiovascular: RRR Respiratory: CTA Gastrointestinal: S/NT/ND Airway Exam Mallampati Score: Class II MO: limited ROM: limited Teeth: missing, intact Anesthesia Pre-op A/P Labs Hematology Test 02/05/17 05:00 White Blood Count 14.3 K/UL (4.8-10.8) H Red Blood Count 2.17 M/UL (4.20-5.40) L Hemoglobin 6.7 G/DL (12.0-16.0) *L Hematocrit 22.6 % (37.0-47.0) L Mean Corpuscular Volume 104 FL (80-99) H Mean Corpuscular Hemoglobin 30.9 PG (27.0-31.0) Mean Corpuscular Hemoglobin Concent 29.6 G/DL (32.0-36.0) L Red Cell Distribution Width 15.7 % (11.6-14.8) H Platelet Count 380 K/UL (150-450) Mean Platelet Volume 5.4 FL (6.5-10.1) L Neutrophils (%) (Auto) % (45.0-75.0) Lymphocytes (%) (Auto) % (20.0-45.0) Monocytes (%) (Auto) % (1.0-10.0) Eosinophils (%) (Auto) % (0.0-3.0) Basophils (%) (Auto) % (0.0-2.0) Differential Total Cells Counted 100 Neutrophils % (Manual) 82 % (45-75) H Lymphocytes % (Manual) 14 % (20-45) L Monocytes % (Manual) 4 % (1-10) Eosinophils % (Manual) 0 % (0-3) Basophils % (Manual) 0 % (0-2) Band Neutrophils 0 % (0-8) Platelet Estimate Adequate Platelet Morphology Normal Hypochromasia 3+ Macrocytosis 1+ Chemistry Test 02/05/17 05:00 Sodium Level 151 MMOL/L (136-145) H Potassium Level 3.3 MMOL/L (3.5-5.1) L Chloride Level 118 MMOL/L (98-107) H Carbon Dioxide Level 23 MMOL/L (21-32) Anion Gap 10 mmol/L (5-15) Blood Urea Nitrogen 25 mg/dL (7-18) H Creatinine 1.2 MG/DL (0.55-1.30) Estimat Glomerular Filtration Rate mL/min (>60) Glucose Level 149 MG/DL (74-106) H Calcium Level 8.2 MG/DL (8.5-10.1) L Troponin I 0.182 ng/mL (0.000-0.056) Pro-B-Type Natriuretic Peptide 7321 pg/mL (0-125) H Risk Assessment & Plan Assessment: ASA 4 Plan: GA Status Change Before Surgery: Salvador Yanes MD Feb 05, 2017 10:01
--- NOTE | 2017-02-05 10:02 | Immediate Post-Op Evaluation ---
Immediate Post-Op Evalulation Immediate Post-Op Evalulation Procedure: EGD Date of Evaluation: Feb 05, 2017 Time of Evaluation: 10:38 IV Fluids: 200 NS Blood Products: 0 Estimated Blood Loss: 10 Urinary Output: 0 Blood Pressure Systolic: 117 Blood Pressure Diastolic: 69 Pulse Rate: 84 Respiratory Rate: 16 O2 Sat by Pulse Oximetry: 100 Temperature (Fahrenheit): 97.6 Pain Score (1-10): 1 Nausea: No Vomiting: No Complications 0 Patient Status: awake, reacts, patent, none Hydration Status: adequate Salvador Kim MD Feb 05, 2017 10:02
--- NOTE | 2017-02-05 10:03 | 48 Hour Post Anesthesia Eval ---
Post Anesthesia Evaluation Procedure: EGD Date of Evaluation: Feb 05, 2017 Time of Evaluation: 12:41 Blood Pressure Systolic: 112 0: 68 Pulse Rate: 83 Respiratory Rate: 18 Temperature (Fahrenheit): 97.8 O2 Sat by Pulse Oximetry: 100 Airway: patent Nausea: No Vomiting: No Pain Intensity: 1 Hydration Status: adequate Cardiopulmonary Status: Stable Mental Status/LOC: patient returned to baseline Follow-up Care/Observations: 0 Post-Anesthesia Complications: 0 Follow-up care needed: N/A Salvador Kim MD Feb 05, 2017 10:03
[2017-02-05] MEDS ORDERED: Bupivacaine 0.5% Inj 30 ml vial INJ ONE (10:15)
--- NOTE | 2017-02-05 10:48 | Pre-Procedure Note/Attestation ---
Pre-Procedure Note/Attestation Complete Prior to Procedure Planned Procedure: not applicable Procedure Narrative: Inferior vena cava filter placement Indications for Procedure Pre-Operative Diagnosis: Extensive DVTs and anemia GI bleed Attestation I attest that I discussed the nature of the procedure; its benefits; risks and complications; and alternatives (and the risks and benefits of such alternatives ), prior to the procedure, with the patient (or the patient's legal community representative). I attest that, if there was a reasonable possibility of needing a blood transfusion, the patient (or the patient's legal community representative) was given the [facility] standardized written summary, pursuant to the Srinivas Zena Blood Safety Act ([place] Health and Safety Code # 1645, as amended). I attest that I re-evaluated the patient just prior to the surgery and that there has been no change in the patient's H&P, except as documented below: CHILANGO FOWLER Feb 05, 2017 10:48
--- NOTE | 2017-02-05 11:16 | Pre-Procedure Note/Attestation ---
Pre-Procedure Note/Attestation Complete Prior to Procedure Planned Procedure: not applicable Procedure Narrative: EGD Indications for Procedure Pre-Operative Diagnosis: GIB Attestation I attest that I discussed the nature of the procedure; its benefits; risks and complications; and alternatives (and the risks and benefits of such alternatives ), prior to the procedure, with the patient (or the patient's legal chain sales representative). I attest that, if there was a reasonable possibility of needing a blood transfusion, the patient (or the patient's legal chain sales representative) was given the [facility] standardized written summary, pursuant to the Srinivas Rachael Blood Safety Act ([place] Health and Safety Code # 1645, as amended). I attest that I re-evaluated the patient just prior to the surgery and that there has been no change in the patient's H&P, except as documented below: Due to emergency nature of this procedure and to avoid further delay and deterioration in patient status, the procedure was completed first and the attestation was typed in after completion of procedure. MAYITO HENDRICKSON Feb 05, 2017 11:16
--- NOTE | 2017-02-05 11:24 | General Progress Note ---
Assessment/Plan Assessment/Plan Assessment - anorexia - malnutrition - dehydration - drop in H&H, ? mostly due to hydration - dysphagia - leukocytosis / UTI - OBS Recommendations - IVF - abx per ID - monitor H&H - PPI - postpone PEG placement until stabilized Subjective Allergies: Coded Allergies: No Known Allergies (Unverified , 02/02/17) Subjective Called by RN regarding drop in H&H and hypotension patient was on pressors earlier today dark/black stools reportedly seen yesterday 2 units PRBC ordered PEG procedure cancelled, but family reconsented for diagnostic EGD EGD: negative, except for mild incidental duodenitis no blood, no ulcer seen After procedure, patient had a BM --> noted to be dark green now going down to get IVC filter Objective Last 24 Hour Vital Signs Date Time Temp Pulse Resp B/P (MAP) Pulse Ox O2 Delivery O2 Flow Rate FiO2 02/05/17 10:25 83 18 100 02/05/17 08:00 84 02/05/17 06:45 80 18 100/53 100 Room Air 02/05/17 06:30 81 20 103/56 100 Room Air 02/05/17 06:15 81 20 101/49 100 Room Air 02/05/17 06:00 83 13 103/46 100 Room Air 02/05/17 06:00 103/46 02/05/17 05:45 77 12 94/54 100 Room Air 02/05/17 05:30 77 12 100/62 100 Room Air 02/05/17 05:15 81 14 114/70 100 Room Air 02/05/17 05:00 98.7 93 13 101/63 100 Room Air 02/05/17 05:00 103/55 02/05/17 04:30 78 17 103/49 100 Room Air 02/05/17 04:15 78 18 118/52 100 Room Air 02/05/17 04:00 106/53 02/05/17 04:00 80 02/05/17 04:00 80 14 107/53 100 Room Air 02/05/17 03:45 76 14 106/53 100 Room Air 02/05/17 03:30 76 18 110/48 100 Room Air 02/05/17 03:15 81 19 132/61 100 Room Air 02/05/17 03:00 75 20 101/51 100 Room Air 02/05/17 03:00 109/53 02/05/17 02:45 77 20 109/53 100 Room Air 02/05/17 02:30 78 21 100/51 100 Room Air 02/05/17 02:15 77 20 98/57 100 Room Air 02/05/17 02:00 84 21 104/56 100 Room Air 02/05/17 02:00 104/56 02/05/17 01:45 77 21 94/44 100 Room Air 02/05/17 01:30 77 21 94/44 100 Room Air 02/05/17 01:00 77 23 103/52 100 Room Air 02/05/17 01:00 94/45 02/05/17 00:45 80 23 103/52 100 Room Air 02/05/17 00:30 78 24 98/43 100 Room Air 02/05/17 00:15 98.3 80 23 104/50 100 Room Air 02/05/17 00:00 82 02/05/17 00:00 82 22 102/47 100 Room Air 02/05/17 00:00 102/47 02/04/17 23:45 74 19 90/44 100 Room Air 02/04/17 23:30 75 21 93/42 100 Room Air 02/04/17 23:15 77 24 105/49 100 Room Air 02/04/17 23:12 74/61 02/04/17 23:00 82 22 98/51 100 Room Air 02/04/17 22:45 86 18 80/39 99 Room Air 02/04/17 22:30 88 17 78/41 100 Room Air 02/04/17 22:15 89 18 76/39 100 Room Air 02/04/17 22:00 90 17 84/43 100 Room Air 02/04/17 21:00 93 19 74/61 99 Room Air 02/04/17 20:00 98.4 97 17 89/42 100 Room Air 02/04/17 20:00 97 02/04/17 19:30 89 18 86/40 100 Room Air 02/04/17 19:00 90 18 86/46 100 Room Air 02/04/17 18:00 84 18 96/43 100 Room Air 02/04/17 17:00 83 18 101/54 100 Room Air 02/04/17 16:00 97.6 84 17 94/52 99 Room Air 02/04/17 16:00 77 02/04/17 15:00 82 25 94/52 100 Room Air 02/04/17 14:00 78 16 116/79 100 Room Air 02/04/17 13:00 79 13 111/62 100 Room Air 02/04/17 12:00 73 02/04/17 12:00 97.4 82 13 101/75 99 Room Air Intake and Output 02/05/17 02/06/17 19:00 07:00 Intake Total 125 ml Output Total 45 ml Balance 80 ml Intake IV Total 125 ml Output Urine Total 45 ml Laboratory Tests 02/05/17 05:00: White Blood Count 14.3H, Red Blood Count 2.17L, Hemoglobin 6.7*L, Hematocrit 22.6L, Mean Corpuscular Volume 104H, Mean Corpuscular Hemoglobin 30.9, Mean Corpuscular Hemoglobin Concent 29.6L, Red Cell Distribution Width 15.7H, Platelet Count 380, Mean Platelet Volume 5.4L, Neutrophils (%) (Auto) , Lymphocytes (%) (Auto) , Monocytes (%) (Auto) , Eosinophils (%) (Auto) , Basophils (%) (Auto) , Differential Total Cells Counted 100, Neutrophils % ( Manual) 82H, Lymphocytes % (Manual) 14L, Monocytes % (Manual) 4, Eosinophils % ( Manual) 0, Basophils % (Manual) 0, Band Neutrophils 0, Platelet Estimate Adequate, Platelet Morphology Normal, Hypochromasia 3+, Macrocytosis 1+, Sodium Level 151H, Potassium Level 3.3L, Chloride Level 118H, Carbon Dioxide Level 23, Anion Gap 10, Blood Urea Nitrogen 25H, Creatinine 1.2, Estimat Glomerular Filtration Rate , Glucose Level 149H, Calcium Level 8.2L, Troponin I 0.182H, Pro -B-Type Natriuretic Peptide 7321H Height (Feet): 5 Height (Inches): 6.00 Weight (Pounds): 128 Objective Elderly AA woman NCAT supple CTA RR Soft NT ND no edema minimally interactive AMYITO HENDRICKSON Feb 05, 2017 11:24
--- NOTE | 2017-02-05 11:42 | Diagnostic Imaging Report ---
Indication: Abdominal pain Comparison: None Single view of the abdomen obtained Findings: There is a right femoral line which is in good position. The Crockett catheter noted. Bowel gas pattern is nonspecific although there is very little bowel gas. Bones are osteopenic. Impression: Limited evaluation of bowel. A Crockett catheter and right femoral line noted
--- NOTE | 2017-02-05 11:57 | Operative Note - PDOC ---
Operative Note Operative Note Pre-op Diagnosis: Extensive DVTs and anemia GI bleed Procedure: IVC filter placement (via left IJ approach) Post-op Diagnosis: same as pre-op Surgeon: Chico Cooper Anesthesiologist: Audi Garcias Anesthesia: local Specimen: none Complications: none Condition: stable Estimated Blood Loss: none Drains: none Implant(s) used?: Yes - IVC filter CHICO Davis Feb 05, 2017 11:57
[2017-02-05] MEDS: Zosyn 3.375gm q8h **Extended infusion IVPB SCH ×2 (13:19→22:38)
--- NOTE | 2017-02-05 14:08 | Diagnostic Imaging Report ---
Indication: Dyspnea Comparison: 02/02/17 A single view chest radiograph was obtained. Findings: Vague density noted at the right lung base. Borderline cardiomegaly is present. Bones are osteopenic. IVC filter noted. Impression: Question of a right basal infiltrate. Please correlate clinically
--- NOTE | 2017-02-05 14:49 | Endoscopy Procedure Note ---
Endoscopy Procedure Note Indication for Procedure: gib Operative Findings/Diagnosis: duodenitis Specimen: none Pt Tolerated Procedure Well: Yes Estimated Blood Loss: none Anesthesiologist: Judy Anesthesia: moderate sedation Medication Given: see anesthesia record Implant(s) used?: No 50 yrs or older w/o bx or poly: Not Applicable 10yrs. F/U not recommended: Not Applicable If not recommended, why?: MAYITO HENDRICKSON Feb 05, 2017 14:49
--- NOTE | 2017-02-05 14:50 | Brief Operative Note ---
Immediate Post Operative Note Operative Note Chief Complaint: GIB Pre-op Diagnosis: GIB Procedure: EGD Post-op Diagnosis: duodenitis Surgeon: madina Anesthesiologist: Judy Specimen: none Complications: none Condition: stable Fluids: see anesth record Estimated Blood Loss: none Drains: none Implant(s) used?: No MAYITO HENDRICKSON Feb 05, 2017 14:50
[2017-02-05] MEDS: Dyna-Hex 2% Top Sol 2oz TOPIC SCH (20:45)
[2017-02-06] VITALS (20 sets, daily range): BP systolic 83–139; BP diastolic 48–87
--- NOTE | 2017-02-06 01:15 | Progress Note ---
DATE: 02/05/2017 CARDIOLOGY PROGRESS NOTE SUBJECTIVE: The patient remains in the intensive care unit. Pressors were tapered off earlier today. The patient is status post IVC filter placement for extensive DVT and endoscopy, which revealed duodenitis. Monitored rhythm, sinus. OBJECTIVE: VITAL SIGNS: Blood pressure 100/53, pulse 80, respirations 18, and afebrile. HEENT: Temporal wasting. LUNGS: Bilateral breath sounds with few rhonchi. HEART: Regular rhythm and rate. Normal S1 and S2 with a fourth heart sound. ABDOMEN: Soft. EXTREMITIES: No edema. LABORATORY DATA: White count 14.3 and hemoglobin 6.7. Sodium 151, potassium 3.3, chloride 118, bicarbonate 23, BUN 25, creatinine 1.3, and glucose 149. Troponin 0.182. Pro-natriuretic peptide 7321. IMPRESSION: 1. Remains critical and guarded. Problems include dehydration, hypernatremia, hypovolemia, acute on chronic renal failure, hypochloremia, hypokalemia, acute myocardial infarction, acute on chronic diastolic congestive heart failure, and severe anemia with macrocytosis. 2. Resolved lactic acidosis. 3. Deep venous thrombosis, status post inferior vena cava filter. 4. Duodenitis with gastrointestinal bleed. 5. Sepsis with recovering shock. PLAN: 1. Volume resuscitation and try to remain off pressors. 2. Broad-spectrum antibiotics. 3. DVT and stress ulcer prophylaxes. 4. Replace potassium. 5. Continue hypotonic fluids. 6. Avoid antiplatelet therapy due to bleeding risk. Remains high risk. Audi Garcia M.D. DR: CARLOS JOB#: [id number] CC:
[2017-02-06 05:45] LABS: MEAN CORPUSCULAR HEMOGLOBIN 30.7 PG (27.0-31.0); MEAN CORPUSCULAR HGB CONC 30.8 G/DL (32.0-36.0); MEAN CORPUSCULAR VOLUME 99 FL (80-99); MEAN PLATELET VOLUME 5.9 FL (6.5-10.1); PLATELET COUNT 312 K/UL (150-450); RED BLOOD COUNT 3.46 M/UL (4.20-5.40); RED CELL DISTRIBUTION WIDTH 15.5 % (11.6-14.8)
[2017-02-06 06:05] LABS: ALANINE AMINOTRANSFERASE 46 U/L (12-78); ALBUMIN/GLOBULIN RATIO 0.6 (1.0-2.7); ANION GAP 11 mmol/L (5-15); ASPARTATE AMINO TRANSFERASE 46 U/L (15-37); CALCIUM 8.2 MG/DL (8.5-10.1); CARBON DIOXIDE 20 MMOL/L (21-32); CHLORIDE 113 MMOL/L (98-107); CREATININE 1.1 MG/DL (0.55-1.30); SODIUM 144 MMOL/L (136-145); TOTAL PROTEIN 5.7 G/DL (6.4-8.2)
[2017-02-06 06:17] LABS: BILIRUBIN,DIRECT 0.2 MG/DL (0.0-0.3)
[2017-02-06 06:57] LABS: WHITE BLOOD COUNT 28.6 K/UL (4.8-10.8)
[2017-02-06] MEDS: D5W w/KCl 20mEq 1,000 ML IV SCH ×4 (07:47→23:40)
--- NOTE | 2017-02-06 08:00 | Procedure Note ---
DATE OF PROCEDURE: 02/05/2017 PROCEDURE: Upper gastrointestinal endoscopy with biopsy. SURGEON: Jose Calderon M.D. ANESTHESIA: Please see the separate anesthesiologist notes for details. PRE-ENDOSCOPIC DIAGNOSIS: Anemia, suspect upper gastrointestinal bleed. POST-ENDOSCOPIC DIAGNOSES: 1. Mild duodenitis. 2. No evidence of an ulceration or blood in the upper gastrointestinal tract. DESCRIPTION OF PROCEDURE: The procedure, its risks, indications, alternatives, and possible complications were explained to the patient's family and informed consent was obtained. The patient was then sedated in the supine position. A diagnostic upper endoscope was introduced into the oropharynx and advanced to the duodenum without difficulty. The endoscope was then gradually withdrawn and the mucosa was examined carefully. Examination of the upper gastrointestinal mucosa revealed a mild degree of nonerosive duodenitis. There was no evidence of ulcerations or bleeding identified in the upper GI tract. The endoscope was removed and the patient was sent to recovery in good condition. COMPLICATIONS: None. RECOMMENDATIONS: 1. There is no evidence of ulcerations or bleeding in the upper GI tract. 2. The patient will be followed clinically and further evaluation can be made. 3. The patient will proceed with IVC filter placement later today. 4. Insert nasogastric tube. Jose Calderon M.D. DR: MARIIA JOB#: [id number] CC: JAMES
--- NOTE | 2017-02-06 08:02 | Pulmonology Progress Note ---
Assessment/Plan Assessment/Plan IMPRESSION: 1. Multiorgan system failure. 2. Sepsis. 3. Decubiti. 4. Dehydration. 5. Hypernatremia. 6. Hypovolemia. 7. Hyperchloremia. 8. Acute on chronic renal failure 9. Secondary sinus tachycardia. 10. Dementia with episodes of agitation. 11. Lactic acidosis. 12. GI bleed/anemia 13. Acute R DVT PLAN: 1. ICU monitoring. Ok to downgrade to TIGRE 2. Volume support with saline until euvolemic, then transition to hypotonic IV fluids. 3. Off Levophed now 4. Broad-spectrum antibiotics. Has VRE and E.coli in urine; ID following 5. Respiratory hygiene. 6. DVT and stress ulcer prophylaxis. Has IVC filter now 7. Serial troponin levels. 8. Repeat lactic acid level. 9. Anti-platelet therapy. 10. Consider beta-ann once hemodynamically stable. 11. Cardiology consult appreciated 12. GI consult called re PEG 13. Endoscopy today 14. Transfuse 15. Discussed with and son in detail at bedside 16. Discussed with RN 17. s/p IVC filter for extensive DVT 18. PICC line done Subjective Interval Events: VRE and E.coli in urine; remins poorly responsive; NGT in place Constitutional: Reports: no symptoms HEENT: Repors: no symptoms Respiratory: Reports: no symptoms Cardiovascular: Reports: no symptoms Gastrointestinal/Abdominal: Reports: no symptoms Genitourinary: Reports: no symptoms Allergies: Coded Allergies: No Known Allergies (Unverified , 02/02/17) Objective Last 24 Hour Vital Signs Date Time Temp Pulse Resp B/P (MAP) Pulse Ox O2 Delivery O2 Flow Rate FiO2 02/06/17 06:00 92 18 83/55 100 Nasal Cannula 2.0 02/06/17 05:00 110 29 96/77 100 Nasal Cannula 2.0 02/06/17 04:00 110 02/06/17 04:00 97.6 97 21 104/61 100 Nasal Cannula 2.0 02/06/17 03:00 101 26 104/58 100 Nasal Cannula 2.0 02/06/17 02:00 99 23 106/59 100 Nasal Cannula 2.0 02/06/17 01:00 98 25 104/61 100 Nasal Cannula 2.0 02/06/17 00:00 98.4 96 24 100/57 100 Nasal Cannula 2.0 02/06/17 00:00 97 02/05/17 23:00 94 26 102/60 100 Nasal Cannula 2.0 02/05/17 22:00 93 27 107/67 100 Nasal Cannula 2.0 02/05/17 21:00 93 25 103/65 100 Nasal Cannula 2.0 02/05/17 20:54 99 Nasal Cannula 3.0 32 02/05/17 20:54 Nasal Cannula 3.0 32 02/05/17 20:00 98 02/05/17 20:00 98.3 98 26 109/61 100 Nasal Cannula 2.0 02/05/17 19:00 97 20 121/72 98 Nasal Cannula 2.0 02/05/17 18:00 90 20 112/54 98 Nasal Cannula 2.0 02/05/17 17:00 96 23 101/53 98 Room Air 02/05/17 16:00 97.9 98 28 122/65 99 Nasal Cannula 2.0 02/05/17 16:00 90 02/05/17 15:13 97 Nasal Cannula 3.0 32 02/05/17 15:13 Nasal Cannula 3.0 32 02/05/17 15:00 93 28 122/84 95 Room Air 02/05/17 15:00 84 18 98/57 100 Room Air 02/05/17 14:00 84 18 113/55 100 Room Air 02/05/17 14:00 92 27 94/69 95 Room Air 02/05/17 13:00 97.7 81 18 116/57 94 Room Air 02/05/17 12:00 86 02/05/17 10:25 83 18 100 02/05/17 10:00 84 19 107/52 100 Room Air 02/05/17 09:00 81 18 99/58 100 Room Air General Appearance: no acute distress HEENT: normocephalic Respiratory/Chest: chest wall non-tender, lungs clear Cardiovascular: normal peripheral pulses, normal rate Abdomen: normal bowel sounds, soft, non tender Laboratory Tests 02/06/17 05:00: White Blood Count 28.6#*H, Red Blood Count 3.46L, Hemoglobin 10.6#L, Hematocrit 34.4#L, Mean Corpuscular Volume 99, Mean Corpuscular Hemoglobin 30.7, Mean Corpuscular Hemoglobin Concent 30.8L, Red Cell Distribution Width 15.5H, Platelet Count 312, Mean Platelet Volume 5.9L, Neutrophils (%) (Auto) , Lymphocytes (%) (Auto) , Monocytes (%) (Auto) , Eosinophils (%) (Auto) , Basophils (%) (Auto) , Neutrophils % (Manual) [Pending], Lymphocytes % (Manual) [Pending], Platelet Estimate [Pending], Platelet Morphology [Pending], Sodium Level 144, Potassium Level 4.0, Chloride Level 113H, Carbon Dioxide Level 20L, Anion Gap 11, Blood Urea Nitrogen 16, Creatinine 1.1, Estimat Glomerular Filtration Rate , Glucose Level 130H, Calcium Level 8.2L, Total Bilirubin 1.3H, Direct Bilirubin 0.2, Aspartate Amino Transf (AST/SGOT) 46H, Alanine Aminotransferase (ALT/SGPT) 46, Alkaline Phosphatase 86, Total Protein 5.7L, Albumin 2.1L, Globulin 3.6, Albumin/Globulin Ratio 0.6L Current Medications Medications (Trade) Dose Ordered Sig/Lyndon Route PRN Reason Start Time Stop Time Status Last Admin Dose Admin Chlorhexidine Gluconate (Mayte-Hex 2%) 1 applic DAILY@2000 TOPIC 02/02/17 20:00 03/04/17 19:59 02/05/17 20:45 Dextrose/ Electrolytes 1,000 ml @ 125 mls/hr Q8H IV 02/04/17 17:00 03/06/17 16:59 02/06/17 07:47 Norepinephrine Bitartrate 4 mg/ Dextrose 250 ml @ 0 mls/hr Q24H IV 02/02/17 17:00 03/04/17 16:59 02/04/17 23:12 Pantoprazole (Protonix) 40 mg EVERY 12 HOURS IVP 02/02/17 21:00 03/04/17 20:59 02/05/17 20:45 Piperacillin/ Tazobactam/ Dextrose 50 ml @ 12.5 mls/hr Q12HR@1000,2200 IVPB 02/02/17 22:00 02/09/17 21:59 02/05/17 22:38 Teja Adhikari MD Feb 06, 2017 08:02
--- NOTE | 2017-02-06 08:31 | General Progress Note ---
Assessment/Plan Assessment/Plan Assessment - anorexia - malnutrition - dehydration - anemia - dysphagia - leukocytosis / UTI - OBS - DVT Recommendations - IVF - abx per ID - monitor H&H - PPI - PEG next week, once stable - continue NGT feeds Subjective Allergies: Coded Allergies: No Known Allergies (Unverified , 02/02/17) Subjective s/p IVC filter waso pressors until this am tolerating TF NAD d/w RN Objective Last 24 Hour Vital Signs Date Time Temp Pulse Resp B/P (MAP) Pulse Ox O2 Delivery O2 Flow Rate FiO2 02/06/17 08:00 98.0 92 18 94/80 100 Nasal Cannula 2.0 02/06/17 08:00 92 02/06/17 07:00 92 16 100/52 100 Nasal Cannula 2.0 02/06/17 06:00 92 18 83/55 100 Nasal Cannula 2.0 02/06/17 05:00 110 29 96/77 100 Nasal Cannula 2.0 02/06/17 04:00 110 02/06/17 04:00 97.6 97 21 104/61 100 Nasal Cannula 2.0 02/06/17 03:00 101 26 104/58 100 Nasal Cannula 2.0 02/06/17 02:00 99 23 106/59 100 Nasal Cannula 2.0 02/06/17 01:00 98 25 104/61 100 Nasal Cannula 2.0 02/06/17 00:00 98.4 96 24 100/57 100 Nasal Cannula 2.0 02/06/17 00:00 97 02/05/17 23:00 94 26 102/60 100 Nasal Cannula 2.0 02/05/17 22:00 93 27 107/67 100 Nasal Cannula 2.0 02/05/17 21:00 93 25 103/65 100 Nasal Cannula 2.0 02/05/17 20:54 99 Nasal Cannula 3.0 32 02/05/17 20:54 Nasal Cannula 3.0 32 02/05/17 20:00 98 02/05/17 20:00 98.3 98 26 109/61 100 Nasal Cannula 2.0 02/05/17 19:00 97 20 121/72 98 Nasal Cannula 2.0 02/05/17 18:00 90 20 112/54 98 Nasal Cannula 2.0 02/05/17 17:00 96 23 101/53 98 Room Air 02/05/17 16:00 97.9 98 28 122/65 99 Nasal Cannula 2.0 02/05/17 16:00 90 02/05/17 15:13 97 Nasal Cannula 3.0 32 02/05/17 15:13 Nasal Cannula 3.0 32 02/05/17 15:00 93 28 122/84 95 Room Air 02/05/17 15:00 84 18 98/57 100 Room Air 02/05/17 14:00 84 18 113/55 100 Room Air 02/05/17 14:00 92 27 94/69 95 Room Air 02/05/17 13:00 97.7 81 18 116/57 94 Room Air 02/05/17 12:00 86 02/05/17 10:25 83 18 100 02/05/17 10:00 84 19 107/52 100 Room Air 02/05/17 09:00 81 18 99/58 100 Room Air Intake and Output 02/06/17 02/07/17 19:00 07:00 Intake Total 50 ml Output Total 30 ml Balance 20 ml Tube Feeding 50 ml Output Urine Total 30 ml Laboratory Tests 02/06/17 05:00: White Blood Count 28.6#*H, Red Blood Count 3.46L, Hemoglobin 10.6#L, Hematocrit 34.4#L, Mean Corpuscular Volume 99, Mean Corpuscular Hemoglobin 30.7, Mean Corpuscular Hemoglobin Concent 30.8L, Red Cell Distribution Width 15.5H, Platelet Count 312, Mean Platelet Volume 5.9L, Neutrophils (%) (Auto) , Lymphocytes (%) (Auto) , Monocytes (%) (Auto) , Eosinophils (%) (Auto) , Basophils (%) (Auto) , Neutrophils % (Manual) [Pending], Lymphocytes % (Manual) [Pending], Platelet Estimate [Pending], Platelet Morphology [Pending], Sodium Level 144, Potassium Level 4.0, Chloride Level 113H, Carbon Dioxide Level 20L, Anion Gap 11, Blood Urea Nitrogen 16, Creatinine 1.1, Estimat Glomerular Filtration Rate , Glucose Level 130H, Calcium Level 8.2L, Total Bilirubin 1.3H, Direct Bilirubin 0.2, Aspartate Amino Transf (AST/SGOT) 46H, Alanine Aminotransferase (ALT/SGPT) 46, Alkaline Phosphatase 86, Total Protein 5.7L, Albumin 2.1L, Globulin 3.6, Albumin/Globulin Ratio 0.6L Height (Feet): 5 Height (Inches): 6.00 Weight (Pounds): 127 Objective Elderly AA woman NCAT, (+) NGT supple CTA RR Soft NT ND no edema minimally interactive MAYITO HENDRICKSON Feb 06, 2017 08:31
[2017-02-06 08:41] LABS: BAND NEUTROPHILS % (MANUAL) 0 % (0-8); BASOPHILS % (MANUAL) 0 % (0-2); EOSINOPHILS % (MANUAL) 0 % (0-3); LYMPHOCYTES % (MANUAL) 8 % (20-45); NEUTROPHILS % (MANUAL) 90 % (45-75); PLATELET ESTIMATE ADEQUATE; PLATELET MORPHOLOGY NORMAL; TOTAL CELLS COUNTED 100
--- NOTE | 2017-02-06 10:04 | Diagnostic Imaging Report ---
Indication:Elevated Bun and Creatinine. Technique: Grayscale and duplex Doppler imaging of the kidneys performed. Comparison: None Findings: Kidneys are normal in size. Echogenicity of the kidneys is probably normal. Imaging of the kidneys is at the suboptimal. The right kidney is 9.7 CM and the left 8.9 CM. There is no hydronephrosis. Crockett catheter is present. There is trace ascites. There is an incidental cyst demonstrated within the right lobe of the liver noted centrally measuring about 2 x 1 CM. Impression: No obstructive nephropathy. Limited evaluation of the kidneys. Crockett catheter. Trace ascites Liver cyst
[2017-02-06] MEDS: Pantoprazole Inj IVP SCH ×2 (10:17→20:56)
[2017-02-06] MEDS: Zosyn 3.375gm q8h **Extended infusion IVPB SCH (10:17)
[2017-02-06] MEDS ORDERED: Tubing IV Secondary IV ONE ×2 (11:00→15:05)
[2017-02-06] MEDS ORDERED: NS 275ml ONE ×2 (11:00→15:05)
--- NOTE | 2017-02-06 12:02 | Diagnostic Imaging Report ---
Indication: NG tube placement Comparison: 02/05/17 Single view of the abdomen obtained Findings: NG tube is in the position with both the proximal port and tip well situated in the stomach which is moderately distended with air. There is possibly an infiltrate in the right lung again noted. Heart size is increased. IVC filter noted. Impression: NG tube in good position.
--- NOTE | 2017-02-06 12:39 | Diagnostic Imaging Report ---
Indication: watermaster venous access Findings: After the indications, procedure, risks, complications, and alternatives of the procedure were explained, written informed consent was obtained. The right upper extremity was prepped with alcohol. All elements of maximal sterile barrier technique were followed including usage of a cap, mask, sterile gown, sterile gloves, hand hygiene and a large sterile sheet. Sonographic evaluation of the upper extremity was performed demonstrating a patent and compressible basilic vein. Access was obtained under real-time ultrasound guidance (with utilization of sterile gel and sterile probe cover) and digital image was saved and archived. An .018 wire was introduced. Needle exchanged for a 5 Kenyan peel-away sheath. Measurements were obtained. A 5 Kenyan dual-lumen Power PICC line catheter was cut to 30 cm and introduced over the wire. Peel-away sheath and wire were removed.Catheter was secured to the skin using 2-0 Prolene suture. Both ports aspirate and flush easily. Post procedure chest x-ray demonstrates good position of the PICC line catheter within the SVC. Impression: Successful placement of an upper extremity PICC line catheter
--- NOTE | 2017-02-06 12:39 | Infectious Diseases Prog Note ---
"Assessment/Plan Assessment/Plan antibiotics : zosyn A 1. e.coli | VRE UTI 2. shock 3. leucocytosis increased 4. HTN 5. + blood cultures with coag neg staph likely contaminated P 1. d/c zosyn 2. start linezolid, ceftriaxone 3. will follow up cultures Subjective ROS Limited/Unobtainable: Yes Allergies: Coded Allergies: No Known Allergies (Unverified , 02/02/17) Objective Vital Signs Last 24 Hour Vital Signs Date Time Temp Pulse Resp B/P (MAP) Pulse Ox O2 Delivery O2 Flow Rate FiO2 02/06/17 11:00 100 22 97/48 100 Nasal Cannula 2.0 02/06/17 10:00 99 16 91/58 100 Nasal Cannula 2.0 02/06/17 09:00 93 18 101/61 100 Nasal Cannula 2.0 02/06/17 08:00 98.0 92 18 94/80 100 Nasal Cannula 2.0 02/06/17 08:00 92 02/06/17 07:00 92 16 100/52 100 Nasal Cannula 2.0 02/06/17 06:00 92 18 83/55 100 Nasal Cannula 2.0 02/06/17 05:00 110 29 96/77 100 Nasal Cannula 2.0 02/06/17 04:00 110 02/06/17 04:00 97.6 97 21 104/61 100 Nasal Cannula 2.0 02/06/17 03:00 101 26 104/58 100 Nasal Cannula 2.0 02/06/17 02:00 99 23 106/59 100 Nasal Cannula 2.0 02/06/17 01:00 98 25 104/61 100 Nasal Cannula 2.0 02/06/17 00:00 98.4 96 24 100/57 100 Nasal Cannula 2.0 02/06/17 00:00 97 02/05/17 23:00 94 26 102/60 100 Nasal Cannula 2.0 02/05/17 22:00 93 27 107/67 100 Nasal Cannula 2.0 02/05/17 21:00 93 25 103/65 100 Nasal Cannula 2.0 02/05/17 20:54 99 Nasal Cannula 3.0 32 02/05/17 20:54 Nasal Cannula 3.0 32 02/05/17 20:00 98 02/05/17 20:00 98.3 98 26 109/61 100 Nasal Cannula 2.0 02/05/17 19:00 97 20 121/72 98 Nasal Cannula 2.0 02/05/17 18:00 90 20 112/54 98 Nasal Cannula 2.0 02/05/17 17:00 96 23 101/53 98 Room Air 02/05/17 16:00 97.9 98 28 122/65 99 Nasal Cannula 2.0 02/05/17 16:00 90 02/05/17 15:13 97 Nasal Cannula 3.0 32 02/05/17 15:13 Nasal Cannula 3.0 32 02/05/17 15:00 93 28 122/84 95 Room Air 02/05/17 15:00 84 18 98/57 100 Room Air 02/05/17 14:00 84 18 113/55 100 Room Air 02/05/17 14:00 92 27 94/69 95 Room Air 02/05/17 13:00 97.7 81 18 116/57 94 Room Air Height (Feet): 5 Height (Inches): 6.00 Weight (Pounds): 127 Respiratory/Chest: lungs clear Cardiovascular: normal rate, regular rhythm, no gallop/murmur Abdomen: soft, non tender Extremities: no edema, other - right groin catheter Laboratory Tests Test 02/06/17 05:00 White Blood Count 28.6 K/UL (4.8-10.8) #*H Red Blood Count 3.46 M/UL (4.20-5.40) L Hemoglobin 10.6 G/DL (12.0-16.0) #L Hematocrit 34.4 % (37.0-47.0) #L Mean Corpuscular Volume 99 FL (80-99) Mean Corpuscular Hemoglobin 30.7 PG (27.0-31.0) Mean Corpuscular Hemoglobin Concent 30.8 G/DL (32.0-36.0) L Red Cell Distribution Width 15.5 % (11.6-14.8) H Platelet Count 312 K/UL (150-450) Mean Platelet Volume 5.9 FL (6.5-10.1) L Neutrophils (%) (Auto) % (45.0-75.0) Lymphocytes (%) (Auto) % (20.0-45.0) Monocytes (%) (Auto) % (1.0-10.0) Eosinophils (%) (Auto) % (0.0-3.0) Basophils (%) (Auto) % (0.0-2.0) Differential Total Cells Counted 100 Neutrophils % (Manual) 90 % (45-75) H Lymphocytes % (Manual) 8 % (20-45) L Monocytes % (Manual) 2 % (1-10) Eosinophils % (Manual) 0 % (0-3) Basophils % (Manual) 0 % (0-2) Band Neutrophils 0 % (0-8) Platelet Estimate Adequate Platelet Morphology Normal Sodium Level 144 MMOL/L (136-145) Potassium Level 4.0 MMOL/L (3.5-5.1) Chloride Level 113 MMOL/L (98-107) H Carbon Dioxide Level 20 MMOL/L (21-32) L Anion Gap 11 mmol/L (5-15) Blood Urea Nitrogen 16 mg/dL (7-18) Creatinine 1.1 MG/DL (0.55-1.30) Estimat Glomerular Filtration Rate mL/min (>60) Glucose Level 130 MG/DL (74-106) H Calcium Level 8.2 MG/DL (8.5-10.1) L Total Bilirubin 1.3 MG/DL (0.2-1.0) H Direct Bilirubin 0.2 MG/DL (0.0-0.3) Aspartate Amino Transf (AST/SGOT) 46 U/L (15-37) H Alanine Aminotransferase (ALT/SGPT) 46 U/L (12-78) Alkaline Phosphatase 86 U/L (46-116) Total Protein 5.7 G/DL (6.4-8.2) L Albumin 2.1 G/DL (3.4-5.0) L Globulin 3.6 g/dL Albumin/Globulin Ratio 0.6 (1.0-2.7) L HENRY SIMMS Feb 06, 2017 12:39"
--- NOTE | 2017-02-06 14:11 | Diagnostic Imaging Report ---
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 RIGHT LEG: Venous imaging reveals a patent deep venous system. There is no evidence of thrombus within the femoral, popliteal or tibial segments. The greater saphenous vein is also within normal limits. Doppler indicates normal spontaneous flow within these segments. LEFT LEG: Venous imaging reveals acute thrombus in the common femoral, superficial femoral, popliteal and calf veins. MAGDALENE Gonzalez was notified of abnormal results at 1240 hours.
--- NOTE | 2017-02-06 14:11 | Diagnostic Imaging Report ---
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 BILATERAL: Common femoral artery waveform analysis is within normal limits at rest. Color flow duplex sonography reveals patency of the superficial femoral, popliteal, and tibial arteries, there is no evidence of stenosis or occlusion within these segments. Doppler tibial artery waveform analysis is within normal limits, bilaterally. There is no evidence of significant arterial occlusive disease, bilaterally.
[2017-02-06] MEDS ORDERED: Tubing IV Blood Pump IV ONE (15:05)
[2017-02-06] MEDS ORDERED: Zosyn 3.375gm q8h **Extended infusion IVPB SCH (18:00)
[2017-02-06] MEDS ORDERED: cefTRIAXone 1 GM in D5W 55 ML IVPB SCH (18:00)
--- NOTE | 2017-02-06 19:26 | Nephrology Progress Note ---
Assessment/Plan Problem List: (1) Septic shock (2) Hypotension (3) Anemia (4) Hypernatremia (5) Hypokalemia (6) Dehydration (7) Renal failure (ARF), acute on chronic Plan Continue current treatment plan Monitor lytes, correct prn Continue abx per ID Monitor vitals Monitor neuro status Continue o2 therapy s/p IVC filter placement Monitor overall response and make rec where necessary AM labs Subjective ROS Limited/Unobtainable: Yes Subjective In no apparent distress Objective Objective Last 24 Hour Vital Signs Date Time Temp Pulse Resp B/P (MAP) Pulse Ox O2 Delivery O2 Flow Rate FiO2 02/06/17 18:00 95 21 98/52 100 Nasal Cannula 2.0 02/06/17 17:00 96 22 110/65 100 Nasal Cannula 2.0 02/06/17 16:32 100 Nasal Cannula 2.0 28 02/06/17 16:30 Nasal Cannula 2.0 28 02/06/17 16:08 99.0 98 22 102/84 100 Nasal Cannula 2.0 02/06/17 16:00 98 02/06/17 15:00 102 22 123/72 100 Nasal Cannula 2.0 02/06/17 14:00 109 25 128/72 98 Nasal Cannula 2.0 02/06/17 13:00 110 30 97/66 100 Nasal Cannula 2.0 02/06/17 12:00 99.8 108 25 95/51 100 Nasal Cannula 2.0 02/06/17 12:00 108 02/06/17 11:00 100 22 97/48 100 Nasal Cannula 2.0 02/06/17 10:00 99 16 91/58 100 Nasal Cannula 2.0 02/06/17 09:00 93 18 101/61 100 Nasal Cannula 2.0 02/06/17 08:00 98.0 92 18 94/80 100 Nasal Cannula 2.0 02/06/17 08:00 92 02/06/17 07:00 92 16 100/52 100 Nasal Cannula 2.0 02/06/17 06:00 92 18 83/55 100 Nasal Cannula 2.0 02/06/17 05:00 110 29 96/77 100 Nasal Cannula 2.0 02/06/17 04:00 110 02/06/17 04:00 97.6 97 21 104/61 100 Nasal Cannula 2.0 02/06/17 03:00 101 26 104/58 100 Nasal Cannula 2.0 02/06/17 02:00 99 23 106/59 100 Nasal Cannula 2.0 02/06/17 01:00 98 25 104/61 100 Nasal Cannula 2.0 02/06/17 00:00 98.4 96 24 100/57 100 Nasal Cannula 2.0 02/06/17 00:00 97 02/05/17 23:00 94 26 102/60 100 Nasal Cannula 2.0 02/05/17 22:00 93 27 107/67 100 Nasal Cannula 2.0 02/05/17 21:00 93 25 103/65 100 Nasal Cannula 2.0 02/05/17 20:54 99 Nasal Cannula 3.0 32 02/05/17 20:54 Nasal Cannula 3.0 32 02/05/17 20:00 98 02/05/17 20:00 98.3 98 26 109/61 100 Nasal Cannula 2.0 Intake and Output 02/06/17 02/07/17 19:00 07:00 Intake Total 1920 ml Output Total 865 ml Balance 1055 ml Intake Free Water 120 ml IV Total 1250 ml Tube Feeding 550 ml Output Urine Total 865 ml # Bowel Movements 3 Laboratory Tests 02/06/17 05:00: White Blood Count 28.6#*H, Red Blood Count 3.46L, Hemoglobin 10.6#L, Hematocrit 34.4#L, Mean Corpuscular Volume 99, Mean Corpuscular Hemoglobin 30.7, Mean Corpuscular Hemoglobin Concent 30.8L, Red Cell Distribution Width 15.5H, Platelet Count 312, Mean Platelet Volume 5.9L, Neutrophils (%) (Auto) , Lymphocytes (%) (Auto) , Monocytes (%) (Auto) , Eosinophils (%) (Auto) , Basophils (%) (Auto) , Differential Total Cells Counted 100, Neutrophils % ( Manual) 90H, Lymphocytes % (Manual) 8L, Monocytes % (Manual) 2, Eosinophils % ( Manual) 0, Basophils % (Manual) 0, Band Neutrophils 0, Platelet Estimate Adequate, Platelet Morphology Normal, Sodium Level 144, Potassium Level 4.0, Chloride Level 113H, Carbon Dioxide Level 20L, Anion Gap 11, Blood Urea Nitrogen 16, Creatinine 1.1, Estimat Glomerular Filtration Rate , Glucose Level 130H, Calcium Level 8.2L, Total Bilirubin 1.3H, Direct Bilirubin 0.2, Aspartate Amino Transf (AST/SGOT) 46H, Alanine Aminotransferase (ALT/SGPT) 46, Alkaline Phosphatase 86, Total Protein 5.7L, Albumin 2.1L, Globulin 3.6, Albumin/ Globulin Ratio 0.6L Height (Feet): 5 Height (Inches): 6.00 Weight (Pounds): 127 General Appearance: no apparent distress EENT: normal ENT inspection Neck: non-tender Cardiovascular: regular rhythm Respiratory/Chest: normal breath sounds Abdomen: soft, no organomegaly Extremities: non-tender Neurologic: motor weakness, disoriented Seble Moody N.P. Feb 06, 2017 19:26
[2017-02-06] MEDS: Dyna-Hex 2% Top Sol 2oz TOPIC SCH (20:29)
--- NOTE | 2017-02-06 21:45 | Progress Note ---
DATE: 02/06/2017 CARDIOLOGY PROGRESS NOTE SUBJECTIVE: The patient underwent endoscopy yesterday. No active bleeding was noted. OBJECTIVE: GENERAL: The patient's blood pressure is stabilizing and she is off pressors from this morning. Monitored rhythm, sinus. No respiratory distress. VITAL SIGNS: Blood pressure 94/80, heart rate 92, respiratory rate 18, and afebrile. LUNGS: With coarse breath sounds. CARDIAC: Regular rhythm and rate. Normal S1, S2 with no murmur. ABDOMEN: Soft. EXTREMITIES: Revealed contractures and trace dependent edema. LABORATORY STUDIES: White count 28.6, hemoglobin 10.6. Sodium 144, potassium 4, bicarbonate 20, BUN 15, and creatinine 1.1. Troponin yesterday was 0.182. Albumin 2.1 IMPRESSION: 1. Sepsis. 2. Recovering shock. 3. Metabolic acidosis, status post lactic acidosis. 4. Hyperchloremia. 5. Severe protein-calorie malnutrition. 6. Acute myocardial infarction. 7. Acute deep venous thrombosis, status post inferior vena cava filter. 8. Gastrointestinal bleeding. 9. Recurring leukocytosis. 10. Remains critical and guarded. 11. Dehydration and hypernatremia, now corrected. PLAN: Continue volume resuscitation. Avoid resuming pressors if able. Antibiotics per Infectious Diseases instructional systems design consultant. Monitor electrolytes and replace accordingly. Continue IV fluids, now isotonic. Hold antiplatelet therapy. Audi Garcia M.D. DR: Jose Carlos JOB#: [id number] CC:
[2017-02-07] VITALS (7 sets, daily range): BP systolic 100–123; BP diastolic 61–77
--- NOTE | 2017-02-07 01:30 | Consultation ---
DATE OF CONSULTATION: 02/05/2017 VASCULAR SURGERY CONSULTATION CONSULTING PHYSICIAN: Chico Cooper M.D. REFERRING PHYSICIAN: Teja Adhikari M.D. REASON FOR EVALUATION: Extensive lower extremity deep venous thrombosis with anemia, need for IVC filter placement. HISTORY OF PRESENT ILLNESS: This is an 81-year-old female who was found to be in the intensive care unit at [facility]. The patient presented with shock, dehydration, altered mental status. The patient has dementia, has significant knee contractures. The patient has been resuscitated, underwent endoscopy for her severe anemia. The patient was found to have extensive lower extremity deep venous thrombosis. Vascular Surgery is consulted for placement of inferior vena cava filter. The patient is currently drowsy, unresponsive. PAST MEDICAL HISTORY: As above, history of dementia, sepsis, dehydration, knee contracture, arthritis, encephalopathy. MEDICATIONS: See attached MAR. SOCIAL HISTORY: Unobtainable due to altered mental status. PHYSICAL EXAMINATION: GENERAL: An elderly female with no signs of distress. VITAL SIGNS: Heart rate is 80, blood pressure 100/70. Her Levophed has been trended up. She has been off Levophed now. Respirations 18. NECK: She has neck contracture to the right. LUNGS: Rhonchi bilaterally. HEART: Regular. ABDOMEN: Soft and nontender. EXTREMITIES: She has knee contracture. Feet are warm. Intact pedal Dopplers bilaterally. LABORATORY AND DIAGNOSTIC DATA: Admission laboratories from 02/02/2017 revealed WBC of 23,000, hemoglobin 11.9, platelet count of 623,000. Sodium 160, potassium is 3.5. IMPRESSION: Extensive lower extremity deep deep vein thrombosis with history of anemia, encephalopathy, dementia, contracture, arthritis, sepsis, shock. PLAN: We will proceed with the inferior vena cava filter placement as recommended by Dr. Adhikari. This has been discussed with the patient's and family and wished to proceed. Continue medical and ICU optimization and resuscitation. Antibiotics for sepsis. Optimize nutrition. Decubitus precautions. Chico Cooper M.D. DR: Eduardo JOB#: [id number] CC: Teja Adhikari M.D.; Fax#: [phone]
[2017-02-07] MEDS: D5W w/KCl 20mEq 1,000 ML IV SCH ×3 (04:00→20:40)
[2017-02-07 05:45] LABS: MEAN CORPUSCULAR HEMOGLOBIN 32.4 PG (27.0-31.0); MEAN CORPUSCULAR HGB CONC 34.1 G/DL (32.0-36.0); MEAN CORPUSCULAR VOLUME 95 FL (80-99); MEAN PLATELET VOLUME 6.6 FL (6.5-10.1); PLATELET COUNT 325 K/UL (150-450); RED BLOOD COUNT 3.71 M/UL (4.20-5.40); RED CELL DISTRIBUTION WIDTH 15.4 % (11.6-14.8)
[2017-02-07 05:52] LABS: WHITE BLOOD COUNT 25.7 K/UL (4.8-10.8)
[2017-02-07 05:54] LABS: ANION GAP 10 mmol/L (5-15); CALCIUM 8.2 MG/DL (8.5-10.1); CARBON DIOXIDE 20 MMOL/L (21-32); CHLORIDE 110 MMOL/L (98-107); CREATININE 0.8 MG/DL (0.55-1.30); POTASSIUM 3.7 MMOL/L (3.5-5.1); SODIUM 140 MMOL/L (136-145)
--- NOTE | 2017-02-07 07:57 | Pulmonology Progress Note ---
Assessment/Plan Assessment/Plan IMPRESSION: 1. Multiorgan system failure. 2. Sepsis. 3. Decubiti. 4. Dehydration. 5. Hypernatremia. 6. Hypovolemia. 7. Hyperchloremia. 8. Acute on chronic renal failure 9. Secondary sinus tachycardia. 10. Dementia with episodes of agitation. 11. Lactic acidosis. 12. GI bleed/anemia 13. Acute R DVT PLAN: 1. Continue monitoring 2. Volume support with saline 4. Broad-spectrum antibiotics. Has VRE and E.coli in urine; ID following 5. Respiratory hygiene. 6. DVT and stress ulcer prophylaxis. Has IVC filter now 7. Serial troponin levels. 8. WBC still high 9. Anti-platelet therapy. 10. On broad spectrum abx 11. Cardiology consult appreciated 12. GI consult called re PEG 13. Endoscopy 14. Transfuse 16. Discussed with RN 17. s/p IVC filter for extensive DVT 18. PICC line done Subjective Interval Events: Saturating well on RA; no overnight problems; WBC 25K Constitutional: Reports: no symptoms HEENT: Repors: no symptoms Respiratory: Reports: no symptoms Cardiovascular: Reports: no symptoms Gastrointestinal/Abdominal: Reports: no symptoms Genitourinary: Reports: no symptoms Allergies: Coded Allergies: No Known Allergies (Unverified , 02/02/17) Objective Last 24 Hour Vital Signs Date Time Temp Pulse Resp B/P (MAP) Pulse Ox O2 Delivery O2 Flow Rate FiO2 02/07/17 04:00 101 02/07/17 04:00 97.9 108 20 117/70 96 Room Air 02/07/17 00:00 98.1 97 20 102/64 97 Room Air 02/06/17 23:33 98 02/06/17 20:00 105 02/06/17 20:00 97.0 107 22 139/87 95 Room Air 02/06/17 18:00 95 21 98/52 100 Nasal Cannula 2.0 02/06/17 17:00 96 22 110/65 100 Nasal Cannula 2.0 02/06/17 16:32 100 Nasal Cannula 2.0 28 02/06/17 16:30 Nasal Cannula 2.0 28 02/06/17 16:08 99.0 98 22 102/84 100 Nasal Cannula 2.0 02/06/17 16:00 98 02/06/17 15:00 102 22 123/72 100 Nasal Cannula 2.0 02/06/17 14:00 109 25 128/72 98 Nasal Cannula 2.0 02/06/17 13:00 110 30 97/66 100 Nasal Cannula 2.0 02/06/17 12:00 99.8 108 25 95/51 100 Nasal Cannula 2.0 02/06/17 12:00 108 02/06/17 11:00 100 22 97/48 100 Nasal Cannula 2.0 02/06/17 10:00 99 16 91/58 100 Nasal Cannula 2.0 02/06/17 09:00 93 18 101/61 100 Nasal Cannula 2.0 02/06/17 08:00 98.0 92 18 94/80 100 Nasal Cannula 2.0 02/06/17 08:00 92 General Appearance: no acute distress HEENT: normocephalic Respiratory/Chest: chest wall non-tender, lungs clear Cardiovascular: normal peripheral pulses, normal rate Abdomen: normal bowel sounds, soft, non tender Extremities: no cyanosis Laboratory Tests 02/07/17 04:30: White Blood Count 25.7*H, Red Blood Count 3.71L, Hemoglobin 12.0, Hematocrit 35.3L, Mean Corpuscular Volume 95, Mean Corpuscular Hemoglobin 32.4H, Mean Corpuscular Hemoglobin Concent 34.1, Red Cell Distribution Width 15.4H, Platelet Count 325, Mean Platelet Volume 6.6, Neutrophils (%) (Auto) , Lymphocytes (%) (Auto) , Monocytes (%) (Auto) , Eosinophils (%) (Auto) , Basophils (%) (Auto) , Neutrophils % (Manual) [Pending], Lymphocytes % (Manual) [Pending], Platelet Estimate [Pending], Platelet Morphology [Pending], Sodium Level 140, Potassium Level 3.7, Chloride Level 110H, Carbon Dioxide Level 20L, Anion Gap 10, Blood Urea Nitrogen 11, Creatinine 0.8, Estimat Glomerular Filtration Rate , Glucose Level 110H, Calcium Level 8.2L Current Medications Medications (Trade) Dose Ordered Sig/Lyndon Route PRN Reason Start Time Stop Time Status Last Admin Dose Admin Ceftriaxone Sodium 1 gm/ Dextrose 55 ml @ 110 mls/hr Q24H IVPB 02/07/17 18:00 02/13/17 17:59 Chlorhexidine Gluconate (Mayte-Hex 2%) 1 applic DAILY@2000 TOPIC 02/06/17 20:00 03/04/17 19:59 02/06/17 20:29 Dextrose/ Electrolytes 1,000 ml @ 125 mls/hr Q8H IV 02/06/17 20:00 03/06/17 19:59 02/06/17 23:40 Linezolid (Zyvox) 600 mg EVERY 12 HOURS GT 02/06/17 21:00 02/11/17 12:59 02/06/17 20:56 Pantoprazole (Protonix) 40 mg EVERY 12 HOURS IVP 02/06/17 21:00 03/04/17 20:59 02/06/17 20:56 Teja Adhikari MD Feb 07, 2017 07:57
--- NOTE | 2017-02-07 08:47 | Operative Note - Dictated ---
DATE OF OPERATION: 02/05/2017 SURGEON: Chico Cooper M.D. ANESTHESIOLOGIST: Audi James M.D. PREOPERATIVE DIAGNOSES: Extensive lower extremity deep venous thrombosis with anemia, dementia, encephalopathy, knee contracture, neck contracture, history of sepsis and shock. POSTOPERATIVE DIAGNOSES: Extensive lower extremity deep venous thrombosis with anemia, dementia, encephalopathy, knee contracture, neck contracture, history of sepsis and shock. PROCEDURE: 1. Placement of an inferior vena cava filter (Miranda Bard) via left internal jugular vein approach. 2. Percutaneous left internal jugular venous access sheath placement with selective inferior venacavogram. 3. Left internal jugular vein ultrasound sonography with intraoperative fluoroscopy with interpretation and supervision of the above. ANESTHESIA: Local sedation. COMPLICATIONS: None. TOTAL FLUOROSCOPY TIME: 3.7 minutes. CONTRAST VOLUME USED: 10 mL of diluted Visipaque. COMPLICATIONS: None. FINDINGS: 1. Patent left internal jugular vein with patent inferior vena cava, bilateral renal veins, both proximal and common iliac veins were widely taken. 2. Good placement of inferior vena cava filter below the lowest renal vein with excellent wall position without any evidence of tilt. The patient tolerated the procedure very well. INDICATION FOR PROCEDURE: The patient is an 81-year-old female who presents for the above-mentioned procedure. Risks and benefits were discussed with the patient's and consent was obtained. BRIEF DESCRIPTION OF PROCEDURE: The patient was brought to the procedure room. After a dose of antibiotics and sedation by the anesthesiologist, the left leg was prepped and draped in the usual sterile manner. Left internal jugular vein on ultrasound access was accessed without difficulty percutaneously using a micropuncture technique. This was exchanged to a 5-Lux[place]bourgish sheath using an angled Kumpe catheter and angled hydrophilic wire. The inferior vena cava was selectively accessed without difficulty. Selective inferior venacavogram was performed with the findings as mentioned above. The catheter was exchanged for an 0.035 Amplatz wire and an 8-Luxembourgish 45 cm sheath was brought to the field and this was prepped. The jugular [place] IVC filter bard was prepped and this was flushed and advanced into the 8-Luxembourgish sheath and deployed below the lowest renal vein without difficulty. Fluoroscopy was performed. The left jugular sheath was removed and local pressure for hemostasis was achieved. The patient tolerated the procedure very well and was transferred back to the intensive care unit hemodynamically stable. Chico Cooper M.D. DR: ISAI JOB#: [id number] CC:
[2017-02-07] MEDS: Pantoprazole Inj IVP SCH ×2 (08:56→21:01)
[2017-02-07 09:22] LABS: BAND NEUTROPHILS % (MANUAL) 0 % (0-8); BASOPHILS % (MANUAL) 0 % (0-2); EOSINOPHILS % (MANUAL) 0 % (0-3); LYMPHOCYTES % (MANUAL) 9 % (20-45); NEUTROPHILS % (MANUAL) 86 % (45-75); NUCLEATED RED BLOOD CELLS 1 /100 WBC; PLATELET ESTIMATE ADEQUATE; PLATELET MORPHOLOGY NORMAL; TOTAL CELLS COUNTED 100
--- NOTE | 2017-02-07 11:52 | Infectious Diseases Prog Note ---
"Assessment/Plan Assessment/Plan antibiotics : linezolid, ceftriaxone A 1. e.coli | VRE UTI 2. shock resolved 3. leucocytosis improving 4. HTN 5. + blood cultures with coag neg staph likely contaminated 6. DVT s/p IVC filter placement P 1. continue linezolid 5 more days 2. continue ceftriaxone 1 more day 3. will follow up cultures Subjective ROS Limited/Unobtainable: Yes Allergies: Coded Allergies: No Known Allergies (Unverified , 02/02/17) Objective Vital Signs Last 24 Hour Vital Signs Date Time Temp Pulse Resp B/P (MAP) Pulse Ox O2 Delivery O2 Flow Rate FiO2 02/07/17 08:03 99 Nasal Cannula 3.0 32 02/07/17 08:03 Nasal Cannula 3.0 32 02/07/17 08:01 97.5 107 21 102/61 97 Room Air 02/07/17 08:00 97.5 107 21 102/61 97 Room Air 02/07/17 08:00 106 02/07/17 04:00 101 02/07/17 04:00 97.9 108 20 117/70 96 Room Air 02/07/17 00:00 98.1 97 20 102/64 97 Room Air 02/06/17 23:33 98 02/06/17 20:00 105 02/06/17 20:00 97.0 107 22 139/87 95 Room Air 02/06/17 18:00 95 21 98/52 100 Nasal Cannula 2.0 02/06/17 17:00 96 22 110/65 100 Nasal Cannula 2.0 02/06/17 16:32 100 Nasal Cannula 2.0 28 02/06/17 16:30 Nasal Cannula 2.0 28 02/06/17 16:08 99.0 98 22 102/84 100 Nasal Cannula 2.0 02/06/17 16:00 98 02/06/17 15:00 102 22 123/72 100 Nasal Cannula 2.0 02/06/17 14:00 109 25 128/72 98 Nasal Cannula 2.0 02/06/17 13:00 110 30 97/66 100 Nasal Cannula 2.0 02/06/17 12:00 99.8 108 25 95/51 100 Nasal Cannula 2.0 02/06/17 12:00 108 Height (Feet): 5 Height (Inches): 6.00 Weight (Pounds): 131 Respiratory/Chest: lungs clear Cardiovascular: normal rate, regular rhythm, no gallop/murmur Abdomen: soft, non tender Extremities: other - + edema, right arm PICC Laboratory Tests Test 02/07/17 04:30 White Blood Count 25.7 K/UL (4.8-10.8) *H Red Blood Count 3.71 M/UL (4.20-5.40) L Hemoglobin 12.0 G/DL (12.0-16.0) Hematocrit 35.3 % (37.0-47.0) L Mean Corpuscular Volume 95 FL (80-99) Mean Corpuscular Hemoglobin 32.4 PG (27.0-31.0) H Mean Corpuscular Hemoglobin Concent 34.1 G/DL (32.0-36.0) Red Cell Distribution Width 15.4 % (11.6-14.8) H Platelet Count 325 K/UL (150-450) Mean Platelet Volume 6.6 FL (6.5-10.1) Neutrophils (%) (Auto) % (45.0-75.0) Lymphocytes (%) (Auto) % (20.0-45.0) Monocytes (%) (Auto) % (1.0-10.0) Eosinophils (%) (Auto) % (0.0-3.0) Basophils (%) (Auto) % (0.0-2.0) Differential Total Cells Counted 100 Neutrophils % (Manual) 86 % (45-75) H Lymphocytes % (Manual) 9 % (20-45) L Monocytes % (Manual) 5 % (1-10) Eosinophils % (Manual) 0 % (0-3) Basophils % (Manual) 0 % (0-2) Band Neutrophils 0 % (0-8) Nucleated Red Blood Cells 1 /100 WBC Platelet Estimate Adequate Platelet Morphology Normal Red Blood Cell Morphology Normal Sodium Level 140 MMOL/L (136-145) Potassium Level 3.7 MMOL/L (3.5-5.1) Chloride Level 110 MMOL/L (98-107) H Carbon Dioxide Level 20 MMOL/L (21-32) L Anion Gap 10 mmol/L (5-15) Blood Urea Nitrogen 11 mg/dL (7-18) Creatinine 0.8 MG/DL (0.55-1.30) Estimat Glomerular Filtration Rate mL/min (>60) Glucose Level 110 MG/DL (74-106) H Calcium Level 8.2 MG/DL (8.5-10.1) HENRY KEYES Feb 07, 2017 11:52"
[2017-02-07] MEDS ORDERED: cefTRIAXone 1 GM in D5W 55 ML IVPB SCH (18:00)
[2017-02-07] MEDS: Dyna-Hex 2% Top Sol 2oz TOPIC SCH (21:00)
[2017-02-08] VITALS (7 sets, daily range): BP systolic 91–139; BP diastolic 58–84
--- NOTE | 2017-02-08 01:15 | Progress Note ---
DATE: 02/07/2017 CARDIOLOGY PROGRESS NOTE SUBJECTIVE: The patient is off pressors. Blood pressure parameters have stabilized. She continued with broad-spectrum antibiotics and skin care. She is status post IVC filter for acute DVT. OBJECTIVE: VITAL SIGNS: Blood pressure is 117/70, pulse rate 108, respiratory rate 20, and afebrile. CHEST: Bilateral breath sounds without wheezing. CARDIAC: Regular rhythm and rate. Normal S1 and S2 with a fourth heart sound. ABDOMEN: Soft with no tenderness. EXTREMITIES: No cyanosis or edema. LABORATORY DATA: White count 25.7 and hemoglobin 12. Sodium 140, potassium 3.7, bicarbonate 20, BUN 11, creatinine 0.8, and glucose 110. IMPRESSION: 1. Sepsis. 2. Recovering shock. 3. Resolving leukocytosis. 4. Hypertensive heart disease. 5. Acute deep venous thrombosis with inferior vena-cava filter placement. 6. Severe protein-calorie malnutrition. 7. Acute myocardial infarction. 8. Metabolic acidosis, resolved. 9. Lactic acidosis. PLAN: Continue volume support. Avoid pressors. Antimicrobials per Infectious Disease industry consultant. Avoid anti-platelet therapy in view of recent GI bleed. Audi Garcia M.D. DR: Isidro JOB#: [id number] CC:
[2017-02-08] MEDS: D5W w/KCl 20mEq 1,000 ML IV SCH ×3 (04:38→20:09)
[2017-02-08 07:09] LABS: ANION GAP 9 mmol/L (5-15); CALCIUM 8.3 MG/DL (8.5-10.1); CARBON DIOXIDE 21 MMOL/L (21-32); CHLORIDE 108 MMOL/L (98-107); CREATININE 0.8 MG/DL (0.55-1.30); SODIUM 138 MMOL/L (136-145)
[2017-02-08] MEDS: Pantoprazole Inj IVP SCH ×2 (08:32→21:19)
--- NOTE | 2017-02-08 08:44 | Infectious Diseases Prog Note ---
Assessment/Plan Assessment/Plan A: 1. E. coli/G+ UTI 2. shock resolving 3. leucocytosis improving 4. HPN 5. Positive blood culture for CoANS likely contamination 6. DVT s/p IVC filter P 1. discontinue Rocephin, Continue Zyvox X 4 days 2. will follow up CBC Subjective ROS Limited/Unobtainable: Yes Neurologic: Reports: confusion, other - on restraint Allergies: Coded Allergies: No Known Allergies (Unverified , 02/02/17) Objective Vital Signs Last 24 Hour Vital Signs Date Time Temp Pulse Resp B/P (MAP) Pulse Ox O2 Delivery O2 Flow Rate FiO2 02/08/17 04:00 97.0 108 20 91/58 97 Room Air 02/08/17 04:00 112 02/08/17 00:00 113 02/08/17 00:00 99.0 109 20 104/59 96 Room Air 02/07/17 20:00 121 02/07/17 20:00 98.1 121 20 122/69 96 Room Air 02/07/17 16:00 109 02/07/17 16:00 98.2 111 18 100/77 97 Room Air 02/07/17 12:00 97.7 114 21 123/77 96 Room Air 02/07/17 12:00 114 Height (Feet): 5 Height (Inches): 6.00 Weight (Pounds): 135 General Appearance: no acute distress HEENT: mucous membranes moist Respiratory/Chest: lungs clear Cardiovascular: tachycardia Abdomen: soft, non tender, other - rectal tube, NG tube Extremities: other - R arm PICC line, left arm PICC line Neurologic/Psychiatric: other - awake Laboratory Tests Test 02/08/17 06:00 Sodium Level 138 MMOL/L (136-145) Potassium Level 4.0 MMOL/L (3.5-5.1) Chloride Level 108 MMOL/L (98-107) H Carbon Dioxide Level 21 MMOL/L (21-32) Anion Gap 9 mmol/L (5-15) Blood Urea Nitrogen 10 mg/dL (7-18) Creatinine 0.8 MG/DL (0.55-1.30) Estimat Glomerular Filtration Rate mL/min (>60) Glucose Level 126 MG/DL (74-106) H Calcium Level 8.3 MG/DL (8.5-10.1) L Current Medications Medications (Trade) Dose Ordered Sig/Lyndon Route PRN Reason Start Time Stop Time Status Last Admin Dose Admin Ceftriaxone Sodium 1 gm/ Dextrose 55 ml @ 110 mls/hr Q24H IVPB 02/07/17 18:00 02/13/17 17:59 02/07/17 17:26 Chlorhexidine Gluconate (Mayte-Hex 2%) 1 applic DAILY@2000 TOPIC 02/06/17 20:00 03/04/17 19:59 02/07/17 21:00 Dextrose/ Electrolytes 1,000 ml @ 125 mls/hr Q8H IV 02/06/17 20:00 03/06/17 19:59 02/08/17 04:38 Linezolid (Zyvox) 600 mg EVERY 12 HOURS GT 02/06/17 21:00 02/11/17 12:59 02/08/17 08:32 Pantoprazole (Protonix) 40 mg EVERY 12 HOURS IVP 02/06/17 21:00 03/04/17 20:59 02/08/17 08:32 MITA GUSTAFSON Feb 08, 2017 08:44
--- NOTE | 2017-02-08 09:15 | Pulmonology Progress Note ---
Assessment/Plan Assessment/Plan IMPRESSION: 1. Multiorgan system failure. 2. Sepsis. 3. Decubiti. 4. Dehydration. 5. Hypernatremia. 6. Hypovolemia. 7. Hyperchloremia. 8. Acute on chronic renal failure 9. Secondary sinus tachycardia. 10. Dementia with episodes of agitation. 11. Lactic acidosis. 12. GI bleed/anemia 13. Acute R DVT PLAN: 1. Continue monitoring 2. Volume support with saline 4. Broad-spectrum antibiotics. Has VRE and E.coli in urine; ID following 5. Respiratory hygiene. 6. DVT and stress ulcer prophylaxis. Has IVC filter now 7. Serial troponin levels. 8. WBC still high 9. Anti-platelet therapy. 10. On broad spectrum abx 11. Cardiology consult appreciated 12. GI consult called re PEG 13. Endoscopy 14. Transfuse 16. Discussed with RN 17. s/p IVC filter for extensive DVT 18. PICC line done Subjective Interval Events: NGT in place; no new events; unresponsive Constitutional: Reports: no symptoms HEENT: Repors: no symptoms Respiratory: Reports: no symptoms Cardiovascular: Reports: no symptoms Gastrointestinal/Abdominal: Reports: no symptoms Genitourinary: Reports: no symptoms Neurologic: Reports: no symptoms Allergies: Coded Allergies: No Known Allergies (Unverified , 02/02/17) Objective Last 24 Hour Vital Signs Date Time Temp Pulse Resp B/P (MAP) Pulse Ox O2 Delivery O2 Flow Rate FiO2 02/08/17 04:00 97.0 108 20 91/58 97 Room Air 02/08/17 04:00 112 02/08/17 00:00 113 02/08/17 00:00 99.0 109 20 104/59 96 Room Air 02/07/17 20:00 121 02/07/17 20:00 98.1 121 20 122/69 96 Room Air 02/07/17 16:00 109 02/07/17 16:00 98.2 111 18 100/77 97 Room Air 02/07/17 12:00 97.7 114 21 123/77 96 Room Air 02/07/17 12:00 114 General Appearance: no acute distress HEENT: normocephalic Respiratory/Chest: chest wall non-tender, lungs clear Cardiovascular: normal peripheral pulses, normal rate Abdomen: normal bowel sounds, soft, non tender Laboratory Tests 02/08/17 06:00: Sodium Level 138, Potassium Level 4.0, Chloride Level 108H, Carbon Dioxide Level 21, Anion Gap 9, Blood Urea Nitrogen 10, Creatinine 0.8, Estimat Glomerular Filtration Rate , Glucose Level 126H, Calcium Level 8.3L Current Medications Medications (Trade) Dose Ordered Sig/Lyndon Route PRN Reason Start Time Stop Time Status Last Admin Dose Admin Chlorhexidine Gluconate (Mayte-Hex 2%) 1 applic DAILY@2000 TOPIC 02/06/17 20:00 03/04/17 19:59 02/07/17 21:00 Dextrose/ Electrolytes 1,000 ml @ 125 mls/hr Q8H IV 02/06/17 20:00 03/06/17 19:59 02/08/17 04:38 Linezolid (Zyvox) 600 mg EVERY 12 HOURS GT 02/06/17 21:00 02/11/17 12:59 02/08/17 08:32 Pantoprazole (Protonix) 40 mg EVERY 12 HOURS IVP 02/06/17 21:00 03/04/17 20:59 02/08/17 08:32 Teja Adhikari MD Feb 08, 2017 09:15
[2017-02-08 15:22] LABS: MEAN CORPUSCULAR HEMOGLOBIN 31.6 PG (27.0-31.0); MEAN CORPUSCULAR HGB CONC 32.2 G/DL (32.0-36.0); MEAN CORPUSCULAR VOLUME 98 FL (80-99); MEAN PLATELET VOLUME 6.7 FL (6.5-10.1); PLATELET COUNT 320 K/UL (150-450); RED BLOOD COUNT 3.66 M/UL (4.20-5.40); RED CELL DISTRIBUTION WIDTH 16.4 % (11.6-14.8)
[2017-02-08 15:24] LABS: WHITE BLOOD COUNT 24.7 K/UL (4.8-10.8)
[2017-02-08 15:51] LABS: NEUTROPHILS % (MANUAL) 83 % (45-75); TOTAL CELLS COUNTED 100
[2017-02-08 15:52] LABS: BAND NEUTROPHILS % (MANUAL) 0 % (0-8); BASOPHILS % (MANUAL) 0 % (0-2); EOSINOPHILS % (MANUAL) 2 % (0-3); LYMPHOCYTES % (MANUAL) 10 % (20-45); PLATELET ESTIMATE ADEQUATE; PLATELET MORPHOLOGY NORMAL
--- NOTE | 2017-02-08 16:15 | Progress Note ---
DATE: 02/08/2017 CARDIOLOGY PROGRESS NOTE SUBJECTIVE: The patient is off pressors, but has marginal blood pressure readings. Her heart rhythm remains rapid, sinus tachycardia, and in the ranges of 105 to 125. OBJECTIVE: VITAL SIGNS: Temperature max 99. Blood pressure this morning 91/58. LUNGS: Bilateral breath sounds with few rhonchi. HEART: Regular rhythm. Rapid rate. Normal S1 and S2. No new murmur. ABDOMEN: Soft. EXTREMITIES: No edema. LABORATORY DATA: Potassium 4, BUN 10, and creatinine 0.8. White count yesterday was 25,000. IMPRESSION: 1. Sepsis with shock. 2. Hypovolemia, corrected. 3. Dehydration and hypernatremia, corrected. 4. Acute myocardial infarction. 5. Secondary sinus tachycardia. 6. Acute and chronic diastolic congestive heart failure. 7. Macrocytic anemia. 8. Resolved lactic acidosis. 9. Acute deep venous thrombosis, status post inferior vena cava filter. 10. Status post gastrointestinal bleed. 11. Remains in serious condition with guarded prognosis. PLAN: 1. Continue volume support, antimicrobials, and DVT and stress ulcer prophylaxes. 2. Followup white blood cell count. 3. Avoiding anti-platelet therapy at this time due to bleeding risk. Audi Garcia M.D. DR: VALERIE JOB#: [id number] CC:
[2017-02-08] MEDS: Dyna-Hex 2% Top Sol 2oz TOPIC SCH (20:09)
[2017-02-09] VITALS (7 sets, daily range): BP systolic 79–140; BP diastolic 54–71
[2017-02-09] MEDS: D5W w/KCl 20mEq 1,000 ML IV SCH ×3 (04:05→22:55)
[2017-02-09 06:01] LABS: MEAN CORPUSCULAR HEMOGLOBIN 32.5 PG (27.0-31.0); MEAN CORPUSCULAR VOLUME 99 FL (80-99); MEAN PLATELET VOLUME 7.3 FL (6.5-10.1); PLATELET COUNT 275 K/UL (150-450); RED BLOOD COUNT 3.14 M/UL (4.20-5.40); RED CELL DISTRIBUTION WIDTH 16.6 % (11.6-14.8)
[2017-02-09 06:04] LABS: WHITE BLOOD COUNT 27.1 K/UL (4.8-10.8)
[2017-02-09 06:18] LABS: ALANINE AMINOTRANSFERASE 41 U/L (12-78); ALBUMIN/GLOBULIN RATIO 0.4 (1.0-2.7); ANION GAP 9 mmol/L (5-15); ASPARTATE AMINO TRANSFERASE 36 U/L (15-37); CALCIUM 8.3 MG/DL (8.5-10.1); CARBON DIOXIDE 23 MMOL/L (21-32); CHLORIDE 106 MMOL/L (98-107); CREATININE 0.8 MG/DL (0.55-1.30); MAGNESIUM 1.2 MG/DL (1.8-2.4); POTASSIUM 4.4 MMOL/L (3.5-5.1); SODIUM 138 MMOL/L (136-145); TOTAL PROTEIN 5.6 G/DL (6.4-8.2)
[2017-02-09 08:37] LABS: ANISOCYTOSIS 1+; BAND NEUTROPHILS % (MANUAL) 0 % (0-8); BASOPHILS % (MANUAL) 0 % (0-2); EOSINOPHILS % (MANUAL) 0 % (0-3); LYMPHOCYTES % (MANUAL) 4 % (20-45); NEUTROPHILS % (MANUAL) 90 % (45-75); PLATELET ESTIMATE ADEQUATE; PLATELET MORPHOLOGY NORMAL; TOTAL CELLS COUNTED 100
[2017-02-09] MEDS: Pantoprazole Inj IVP SCH ×2 (08:37→21:09)
--- NOTE | 2017-02-09 09:42 | Pulmonology Progress Note ---
Assessment/Plan Assessment/Plan IMPRESSION: 1. Multiorgan system failure. 2. Sepsis. 3. Decubiti. 4. Dehydration. 5. Hypernatremia. 6. Hypovolemia. 7. Hyperchloremia. 8. Acute on chronic renal failure 9. Secondary sinus tachycardia. 10. Dementia with episodes of agitation. 11. Lactic acidosis. 12. GI bleed/anemia 13. Acute R DVT PLAN: 1. Continue monitoring 2. Volume support with saline 4. Broad-spectrum antibiotics. Has VRE and E.coli in urine; ID following 5. Respiratory hygiene. 6. DVT and stress ulcer prophylaxis. Has IVC filter now 7. Serial troponin levels. 8. WBC still high 9. Anti-platelet therapy. 10. On broad spectrum abx 11. Cardiology consult appreciated 12. GI consult called re PEG 13. Endoscopy 14. Transfuse 16. Discussed with RN 17. s/p IVC filter for extensive DVT 18. PICC line done 19. Will request abd CT given persistent leucocytosis; will discuss with ID Subjective Interval Events: Continues to have leucocytosis; low grade fever Constitutional: Reports: no symptoms HEENT: Repors: no symptoms Respiratory: Reports: no symptoms Cardiovascular: Reports: no symptoms Gastrointestinal/Abdominal: Reports: no symptoms Genitourinary: Reports: no symptoms Neurologic: Reports: no symptoms Allergies: Coded Allergies: No Known Allergies (Unverified , 02/02/17) Objective Last 24 Hour Vital Signs Date Time Temp Pulse Resp B/P (MAP) Pulse Ox O2 Delivery O2 Flow Rate FiO2 02/09/17 08:00 97.3 112 19 129/63 100 Nasal Cannula 2.0 02/09/17 07:00 Nasal Cannula 2.0 28 02/09/17 07:00 100 Nasal Cannula 2.0 28 02/09/17 04:15 97.9 114 17 94/54 98 Room Air 02/09/17 04:00 97.9 114 18 79/60 100 Room Air 02/09/17 03:00 111 02/09/17 00:00 97.7 100 17 91/60 100 Room Air 02/09/17 00:00 127 02/08/17 20:00 98.0 112 18 109/76 100 Room Air 02/08/17 20:00 112 02/08/17 19:20 Nasal Cannula 3.0 32 02/08/17 19:20 99 Nasal Cannula 2.0 32 02/08/17 18:26 97.7 96 24 139/84 96 Room Air 02/08/17 16:00 119 02/08/17 16:00 97.7 96 24 139/84 96 Room Air 02/08/17 12:00 111 02/08/17 12:00 98.2 108 24 102/68 97 Room Air General Appearance: no acute distress HEENT: normocephalic Respiratory/Chest: chest wall non-tender, lungs clear Cardiovascular: normal peripheral pulses, normal rate Abdomen: normal bowel sounds, soft, non tender Laboratory Tests 02/08/17 14:50: White Blood Count 24.7*H, Red Blood Count 3.66L, Hemoglobin 11.6L, Hematocrit 36.0L, Mean Corpuscular Volume 98, Mean Corpuscular Hemoglobin 31.6H, Mean Corpuscular Hemoglobin Concent 32.2, Red Cell Distribution Width 16.4H, Platelet Count 320, Mean Platelet Volume 6.7, Neutrophils (%) (Auto) , Lymphocytes (%) (Auto) , Monocytes (%) (Auto) , Eosinophils (%) (Auto) , Basophils (%) (Auto) , Differential Total Cells Counted 100, Neutrophils % ( Manual) 83H, Lymphocytes % (Manual) 10L, Monocytes % (Manual) 5, Eosinophils % ( Manual) 2, Basophils % (Manual) 0, Band Neutrophils 0, Platelet Estimate Adequate, Platelet Morphology Normal, Red Blood Cell Morphology Normal 02/09/17 03:30: White Blood Count 27.1*H, Red Blood Count 3.14L, Hemoglobin 10.2L, Hematocrit 31.0L, Mean Corpuscular Volume 99, Mean Corpuscular Hemoglobin 32.5H, Mean Corpuscular Hemoglobin Concent 33.0, Red Cell Distribution Width 16.6H, Platelet Count 275, Mean Platelet Volume 7.3, Neutrophils (%) (Auto) , Lymphocytes (%) (Auto) , Monocytes (%) (Auto) , Eosinophils (%) (Auto) , Basophils (%) (Auto) , Differential Total Cells Counted 100, Neutrophils % ( Manual) 90H, Lymphocytes % (Manual) 4L, Monocytes % (Manual) 6, Eosinophils % ( Manual) 0, Basophils % (Manual) 0, Band Neutrophils 0, Platelet Estimate Adequate, Platelet Morphology Normal, Anisocytosis 1+, Sodium Level 138, Potassium Level 4.4, Chloride Level 106, Carbon Dioxide Level 23, Anion Gap 9, Blood Urea Nitrogen 13, Creatinine 0.8, Estimat Glomerular Filtration Rate , Glucose Level 138H, Calcium Level 8.3L, Magnesium Level 1.2L, Total Bilirubin 0.5, Aspartate Amino Transf (AST/SGOT) 36, Alanine Aminotransferase (ALT/SGPT) 41, Alkaline Phosphatase 174H, Total Protein 5.6L, Albumin 1.7L, Globulin 3.9, Albumin/Globulin Ratio 0.4L Current Medications Medications (Trade) Dose Ordered Sig/Lyndon Route PRN Reason Start Time Stop Time Status Last Admin Dose Admin Chlorhexidine Gluconate (Mayte-Hex 2%) 1 applic DAILY@2000 TOPIC 02/06/17 20:00 03/04/17 19:59 02/08/17 20:09 Dextrose/ Electrolytes 1,000 ml @ 125 mls/hr Q8H IV 02/06/17 20:00 03/06/17 19:59 02/09/17 04:05 Linezolid (Zyvox) 600 mg EVERY 12 HOURS GT 02/06/17 21:00 02/11/17 12:59 02/09/17 08:37 Magnesium Sulfate 100 ml @ 100 mls/hr Q1H IVPB 02/09/17 09:15 02/09/17 12:14 Pantoprazole (Protonix) 40 mg EVERY 12 HOURS IVP 02/06/17 21:00 03/04/17 20:59 02/09/17 08:37 Teja Adhikari MD Feb 09, 2017 09:42
--- NOTE | 2017-02-09 09:52 | Infectious Diseases Prog Note ---
Assessment/Plan Assessment/Plan A: 1. E. coli/G+ UTI 2. shock resolved 3. leucocytosis 4. HPN 5. Positive blood culture for CoANS likely contamination 6. DVT s/p IVC filter P 1. Continue Zyvox X 3days 2. CXR, C.difficile test Subjective Neurologic: Reports: confusion, other - on restraint Allergies: Coded Allergies: No Known Allergies (Unverified , 02/02/17) Objective Vital Signs Last 24 Hour Vital Signs Date Time Temp Pulse Resp B/P (MAP) Pulse Ox O2 Delivery O2 Flow Rate FiO2 02/09/17 08:00 97.3 112 19 129/63 100 Nasal Cannula 2.0 02/09/17 07:00 Nasal Cannula 2.0 28 02/09/17 07:00 100 Nasal Cannula 2.0 28 02/09/17 04:15 97.9 114 17 94/54 98 Room Air 02/09/17 04:00 97.9 114 18 79/60 100 Room Air 02/09/17 03:00 111 02/09/17 00:00 97.7 100 17 91/60 100 Room Air 02/09/17 00:00 127 02/08/17 20:00 98.0 112 18 109/76 100 Room Air 02/08/17 20:00 112 02/08/17 19:20 Nasal Cannula 3.0 32 02/08/17 19:20 99 Nasal Cannula 2.0 32 02/08/17 18:26 97.7 96 24 139/84 96 Room Air 02/08/17 16:00 119 02/08/17 16:00 97.7 96 24 139/84 96 Room Air 02/08/17 12:00 111 02/08/17 12:00 98.2 108 24 102/68 97 Room Air Height (Feet): 5 Height (Inches): 6.00 Weight (Pounds): 132 General Appearance: no acute distress HEENT: other - NG tube Respiratory/Chest: lungs clear, other - O2 by cannula Cardiovascular: tachycardia Abdomen: soft, non tender Extremities: other - edema of left leg, right arm PICC Neurologic/Psychiatric: aphasia Laboratory Tests Test 02/08/17 14:50 02/09/17 03:30 White Blood Count 24.7 K/UL (4.8-10.8) *H 27.1 K/UL (4.8-10.8) *H Red Blood Count 3.66 M/UL (4.20-5.40) L 3.14 M/UL (4.20-5.40) L Hemoglobin 11.6 G/DL (12.0-16.0) L 10.2 G/DL (12.0-16.0) L Hematocrit 36.0 % (37.0-47.0) L 31.0 % (37.0-47.0) L Mean Corpuscular Volume 98 FL (80-99) 99 FL (80-99) Mean Corpuscular Hemoglobin 31.6 PG (27.0-31.0) H 32.5 PG (27.0-31.0) H Mean Corpuscular Hemoglobin Concent 32.2 G/DL (32.0-36.0) 33.0 G/DL (32.0-36.0) Red Cell Distribution Width 16.4 % (11.6-14.8) H 16.6 % (11.6-14.8) H Platelet Count 320 K/UL (150-450) 275 K/UL (150-450) Mean Platelet Volume 6.7 FL (6.5-10.1) 7.3 FL (6.5-10.1) Neutrophils (%) (Auto) % (45.0-75.0) % (45.0-75.0) Lymphocytes (%) (Auto) % (20.0-45.0) % (20.0-45.0) Monocytes (%) (Auto) % (1.0-10.0) % (1.0-10.0) Eosinophils (%) (Auto) % (0.0-3.0) % (0.0-3.0) Basophils (%) (Auto) % (0.0-2.0) % (0.0-2.0) Differential Total Cells Counted 100 100 Neutrophils % (Manual) 83 % (45-75) H 90 % (45-75) H Lymphocytes % (Manual) 10 % (20-45) L 4 % (20-45) L Monocytes % (Manual) 5 % (1-10) 6 % (1-10) Eosinophils % (Manual) 2 % (0-3) 0 % (0-3) Basophils % (Manual) 0 % (0-2) 0 % (0-2) Band Neutrophils 0 % (0-8) 0 % (0-8) Platelet Estimate Adequate Adequate Platelet Morphology Normal Normal Red Blood Cell Morphology Normal Anisocytosis 1+ Sodium Level 138 MMOL/L (136-145) Potassium Level 4.4 MMOL/L (3.5-5.1) Chloride Level 106 MMOL/L (98-107) Carbon Dioxide Level 23 MMOL/L (21-32) Anion Gap 9 mmol/L (5-15) Blood Urea Nitrogen 13 mg/dL (7-18) Creatinine 0.8 MG/DL (0.55-1.30) Estimat Glomerular Filtration Rate mL/min (>60) Glucose Level 138 MG/DL (74-106) H Calcium Level 8.3 MG/DL (8.5-10.1) L Magnesium Level 1.2 MG/DL (1.8-2.4) L Total Bilirubin 0.5 MG/DL (0.2-1.0) Aspartate Amino Transf (AST/SGOT) 36 U/L (15-37) Alanine Aminotransferase (ALT/SGPT) 41 U/L (12-78) Alkaline Phosphatase 174 U/L (46-116) H Total Protein 5.6 G/DL (6.4-8.2) L Albumin 1.7 G/DL (3.4-5.0) L Globulin 3.9 g/dL Albumin/Globulin Ratio 0.4 (1.0-2.7) L Current Medications Medications (Trade) Dose Ordered Sig/Lyndon Route PRN Reason Start Time Stop Time Status Last Admin Dose Admin Chlorhexidine Gluconate (Mayte-Hex 2%) 1 applic DAILY@2000 TOPIC 02/06/17 20:00 03/04/17 19:59 02/08/17 20:09 Dextrose/ Electrolytes 1,000 ml @ 125 mls/hr Q8H IV 02/06/17 20:00 03/06/17 19:59 02/09/17 04:05 Linezolid (Zyvox) 600 mg EVERY 12 HOURS GT 02/06/17 21:00 02/11/17 12:59 02/09/17 08:37 Magnesium Sulfate 100 ml @ 100 mls/hr Q1H IVPB 02/09/17 09:15 02/09/17 12:14 Pantoprazole (Protonix) 40 mg EVERY 12 HOURS IVP 02/06/17 21:00 03/04/17 20:59 02/09/17 08:37 MITA GUSTAFSON Feb 09, 2017 09:52
--- NOTE | 2017-02-09 12:58 | GI Progress Note ---
Assessment/Plan Problems: (1) Encounter for PEG (percutaneous endoscopic gastrostomy) ICD Codes: Z43.1 - Encounter for attention to gastrostomy SNOMED: 190475428, 640674845 (2) Anemia ICD Codes: D64.9 - Anemia, unspecified SNOMED: 675439260 (3) Dehydration ICD Codes: E86.0 - Dehydration SNOMED: 93292489 (4) Hypernatremia ICD Codes: E87.0 - Hyperosmolality and hypernatremia SNOMED: 81430599 Status: progressing Status Narrative Discussed with Dr. Enriquez. Assessment/Plan Assessment - anorexia - malnutrition - dehydration - anemia - dysphagia - leukocytosis / UTI - OBS - DVT Recommendations - IVF - abx per ID - monitor H&H - PPI - PEG next week, once stable - continue NGT feeds - fu labs The patient was seen and examined at bedside and all new and available data was reviewed in the patients chart. I agree with the above findings, impression and plan. (Patient seen earlier today. Signature stamp does not reflect patient encounter time.). - Ajit Enriquez MD Subjective Subjective limited Objective Last 24 Hour Vital Signs Date Time Temp Pulse Resp B/P (MAP) Pulse Ox O2 Delivery O2 Flow Rate FiO2 02/09/17 08:00 97.3 112 19 129/63 100 Nasal Cannula 2.0 02/09/17 08:00 114 02/09/17 07:00 Nasal Cannula 2.0 28 02/09/17 07:00 100 Nasal Cannula 2.0 28 02/09/17 04:15 97.9 114 17 94/54 98 Room Air 02/09/17 04:00 97.9 114 18 79/60 100 Room Air 02/09/17 03:00 111 02/09/17 00:00 97.7 100 17 91/60 100 Room Air 02/09/17 00:00 127 02/08/17 20:00 98.0 112 18 109/76 100 Room Air 02/08/17 20:00 112 02/08/17 19:20 Nasal Cannula 3.0 32 02/08/17 19:20 99 Nasal Cannula 2.0 32 02/08/17 18:26 97.7 96 24 139/84 96 Room Air 02/08/17 16:00 119 02/08/17 16:00 97.7 96 24 139/84 96 Room Air Intake and Output 02/09/17 02/10/17 18:59 06:59 Intake Total 175 ml Balance 175 ml IV Total 125 ml Tube Feeding 50 ml Laboratory Tests Test 02/08/17 14:50 02/09/17 03:30 White Blood Count 24.7 K/UL (4.8-10.8) *H 27.1 K/UL (4.8-10.8) *H Red Blood Count 3.66 M/UL (4.20-5.40) L 3.14 M/UL (4.20-5.40) L Hemoglobin 11.6 G/DL (12.0-16.0) L 10.2 G/DL (12.0-16.0) L Hematocrit 36.0 % (37.0-47.0) L 31.0 % (37.0-47.0) L Mean Corpuscular Volume 98 FL (80-99) 99 FL (80-99) Mean Corpuscular Hemoglobin 31.6 PG (27.0-31.0) H 32.5 PG (27.0-31.0) H Mean Corpuscular Hemoglobin Concent 32.2 G/DL (32.0-36.0) 33.0 G/DL (32.0-36.0) Red Cell Distribution Width 16.4 % (11.6-14.8) H 16.6 % (11.6-14.8) H Platelet Count 320 K/UL (150-450) 275 K/UL (150-450) Mean Platelet Volume 6.7 FL (6.5-10.1) 7.3 FL (6.5-10.1) Neutrophils (%) (Auto) % (45.0-75.0) % (45.0-75.0) Lymphocytes (%) (Auto) % (20.0-45.0) % (20.0-45.0) Monocytes (%) (Auto) % (1.0-10.0) % (1.0-10.0) Eosinophils (%) (Auto) % (0.0-3.0) % (0.0-3.0) Basophils (%) (Auto) % (0.0-2.0) % (0.0-2.0) Differential Total Cells Counted 100 100 Neutrophils % (Manual) 83 % (45-75) H 90 % (45-75) H Lymphocytes % (Manual) 10 % (20-45) L 4 % (20-45) L Monocytes % (Manual) 5 % (1-10) 6 % (1-10) Eosinophils % (Manual) 2 % (0-3) 0 % (0-3) Basophils % (Manual) 0 % (0-2) 0 % (0-2) Band Neutrophils 0 % (0-8) 0 % (0-8) Platelet Estimate Adequate Adequate Platelet Morphology Normal Normal Red Blood Cell Morphology Normal Anisocytosis 1+ Sodium Level 138 MMOL/L (136-145) Potassium Level 4.4 MMOL/L (3.5-5.1) Chloride Level 106 MMOL/L (98-107) Carbon Dioxide Level 23 MMOL/L (21-32) Anion Gap 9 mmol/L (5-15) Blood Urea Nitrogen 13 mg/dL (7-18) Creatinine 0.8 MG/DL (0.55-1.30) Estimat Glomerular Filtration Rate mL/min (>60) Glucose Level 138 MG/DL (74-106) H Calcium Level 8.3 MG/DL (8.5-10.1) L Magnesium Level 1.2 MG/DL (1.8-2.4) L Total Bilirubin 0.5 MG/DL (0.2-1.0) Aspartate Amino Transf (AST/SGOT) 36 U/L (15-37) Alanine Aminotransferase (ALT/SGPT) 41 U/L (12-78) Alkaline Phosphatase 174 U/L (46-116) H Total Protein 5.6 G/DL (6.4-8.2) L Albumin 1.7 G/DL (3.4-5.0) L Globulin 3.9 g/dL Albumin/Globulin Ratio 0.4 (1.0-2.7) L Height (Feet): 5 Height (Inches): 6.00 Weight (Pounds): 132 General Appearance: no apparent distress, alert, thin Cardiovascular: normal rate Respiratory/Chest: no respiratory distress Abdominal Exam: normal bowel sounds, non tender, soft, other - NGT Extremities: non-tender Lorie Sellers N.P. Feb 09, 2017 12:58 YONIS ENRIQUEZ Feb 10, 2017 14:19
--- NOTE | 2017-02-09 13:56 | Diagnostic Imaging Report ---
Indication: SOB Technique: One view of the chest Comparison: 02/05/2017 Findings: Ration currently. There is interim decrease in previously demonstrated right basilar opacity. There is right perihilar atelectasis now present. There is increasing retrocardiac atelectasis and/or consolidation. The nasogastric intubation, nasogastric tube tip projecting at level gastric body. Normal heart size. Inferior vena cava filter is again demonstrated. Right arm PICC is now present Impression: Improving right basilar consolidation Developing retrocardiac consolidation and or atelectasis Satisfactory nasogastric intubation
--- NOTE | 2017-02-09 15:36 | Diagnostic Imaging Report ---
Indication: DVT with contraindication to anticoagulation Technique: Intraoperative images during IVC filter placement by Dr. Cooper Comparison: None Findings: Intraoperative images demonstrate very limited inferior venacavogram, some placement of infrarenal inferior vena cava filter Impression: Intraoperative imaging, as described
[2017-02-09] MEDS ORDERED: NS IV ONE (16:00)
[2017-02-09] MEDS ORDERED: MAGNESIUM SULFATE IV ONE (16:00)
--- NOTE | 2017-02-09 16:57 | Nephrology Progress Note ---
Assessment/Plan Problem List: (1) Septic shock (2) Hypotension (3) Anemia (4) Hypernatremia (5) Hypokalemia (6) Dehydration (7) Renal failure (ARF), acute on chronic (8) Dysphagia Plan Continue current treatment plan Monitor lytes, correct prn Continue abx per ID Monitor vitals Monitor neuro status Continue o2 therapy Awaiting consent for PEG placement Monitor overall response and make rec where necessary AM labs Subjective ROS Limited/Unobtainable: Yes Subjective In bed, in TIGRE, no apparent distress, family at bedside, minimal response Objective Objective Last 24 Hour Vital Signs Date Time Temp Pulse Resp B/P (MAP) Pulse Ox O2 Delivery O2 Flow Rate FiO2 02/09/17 12:01 105 02/09/17 12:00 97.5 101 19 105/66 100 Nasal Cannula 2.0 02/09/17 08:00 97.3 112 19 129/63 100 Nasal Cannula 2.0 02/09/17 08:00 114 02/09/17 07:00 Nasal Cannula 2.0 28 02/09/17 07:00 100 Nasal Cannula 2.0 28 02/09/17 04:15 97.9 114 17 94/54 98 Room Air 02/09/17 04:00 97.9 114 18 79/60 100 Room Air 02/09/17 03:00 111 02/09/17 00:00 97.7 100 17 91/60 100 Room Air 02/09/17 00:00 127 02/08/17 20:00 98.0 112 18 109/76 100 Room Air 02/08/17 20:00 112 02/08/17 19:20 Nasal Cannula 3.0 32 02/08/17 19:20 99 Nasal Cannula 2.0 32 02/08/17 18:26 97.7 96 24 139/84 96 Room Air Intake and Output 02/09/17 02/10/17 19:00 07:00 Intake Total 895 ml Balance 895 ml Intake Free Water 100 ml IV Total 475 ml Tube Feeding 200 ml Other 120 ml Laboratory Tests 02/09/17 03:30: White Blood Count 27.1*H, Red Blood Count 3.14L, Hemoglobin 10.2L, Hematocrit 31.0L, Mean Corpuscular Volume 99, Mean Corpuscular Hemoglobin 32.5H, Mean Corpuscular Hemoglobin Concent 33.0, Red Cell Distribution Width 16.6H, Platelet Count 275, Mean Platelet Volume 7.3, Neutrophils (%) (Auto) , Lymphocytes (%) (Auto) , Monocytes (%) (Auto) , Eosinophils (%) (Auto) , Basophils (%) (Auto) , Differential Total Cells Counted 100, Neutrophils % ( Manual) 90H, Lymphocytes % (Manual) 4L, Monocytes % (Manual) 6, Eosinophils % ( Manual) 0, Basophils % (Manual) 0, Band Neutrophils 0, Platelet Estimate Adequate, Platelet Morphology Normal, Anisocytosis 1+, Sodium Level 138, Potassium Level 4.4, Chloride Level 106, Carbon Dioxide Level 23, Anion Gap 9, Blood Urea Nitrogen 13, Creatinine 0.8, Estimat Glomerular Filtration Rate , Glucose Level 138H, Calcium Level 8.3L, Magnesium Level 1.2L, Total Bilirubin 0.5, Aspartate Amino Transf (AST/SGOT) 36, Alanine Aminotransferase (ALT/SGPT) 41, Alkaline Phosphatase 174H, Total Protein 5.6L, Albumin 1.7L, Globulin 3.9, Albumin/Globulin Ratio 0.4L Height (Feet): 5 Height (Inches): 6.00 Weight (Pounds): 132 General Appearance: no apparent distress EENT: normal ENT inspection, other - NG tube Neck: non-tender, supple Cardiovascular: normal rate, regular rhythm, no JVD Respiratory/Chest: decreased breath sounds Abdomen: non tender Genitourinary/Rectal: other - romero Extremities: non-tender, normal inspection Neurologic: motor weakness Seble Moody N.P. Feb 09, 2017 16:57
[2017-02-09] MEDS: Dyna-Hex 2% Top Sol 2oz TOPIC SCH (19:55)
[2017-02-10] VITALS (12 sets, daily range): BP systolic 88–142; BP diastolic 48–88
--- NOTE | 2017-02-10 04:00 | Progress Note ---
DATE: 02/09/2017 CARDIOLOGY PROGRESS NOTE SUBJECTIVE: The patient continues to have leukocytosis and fevers. Monitored rhythm is sinus tachycardia. Oxygen saturation on two liters is 100%. OBJECTIVE: VITAL SIGNS: Blood pressure is 129/63, pulse 112, respiratory rate 19, and afebrile. CHEST WALL: Nontender. LUNGS: Clear. CARDIAC: Regular. Normal S1 and S2 with a fourth heart sound. ABDOMEN: Soft and nontender. EXTREMITIES: No edema. LABORATORY STUDIES: White count is 27 and hemoglobin 10. Potassium is 4.4, BUN 13, and creatinine 0.8. Albumin is 1.7. Magnesium is 1.2. IMPRESSION: 1. Severe sepsis. 2. Recovered shock. 3. Acute myocardial infarction. 4. Hypomagnesemia. 5. Dehydration and hypernatremia with hypovolemia improved. 6. Secondary sinus tachycardia. 7. Resolved lactic acidosis. 8. Acute deep venous thrombosis of the right upper extremity. 9. Status post inferior vena-cava filter. PLAN: 1. Volume support. 2. Antimicrobials per Infectious Disease real estate listing consultant. 3. Stress ulcer prophylaxis. 4. DVT prophylaxis. Audi Garcia M.D. DR: Isidro JOB#: [id number] CC:
[2017-02-10 05:00] LABS: MEAN CORPUSCULAR HEMOGLOBIN 33.1 PG (27.0-31.0); MEAN CORPUSCULAR HGB CONC 33.9 G/DL (32.0-36.0); MEAN CORPUSCULAR VOLUME 98 FL (80-99); MEAN PLATELET VOLUME 6.6 FL (6.5-10.1); PLATELET COUNT 294 K/UL (150-450); RED BLOOD COUNT 2.94 M/UL (4.20-5.40); RED CELL DISTRIBUTION WIDTH 15.6 % (11.6-14.8); WHITE BLOOD COUNT 18.3 K/UL (4.8-10.8)
[2017-02-10 05:24] LABS: INR 0.9 (0.9-1.1); PROTHROMBIN TIME 9.9 SEC (9.30-11.50)
[2017-02-10 06:05] LABS: ANION GAP 8 mmol/L (5-15); CALCIUM 8.2 MG/DL (8.5-10.1); CARBON DIOXIDE 24 MMOL/L (21-32); CHLORIDE 106 MMOL/L (98-107); CREATININE 0.8 MG/DL (0.55-1.30); POTASSIUM 4.3 MMOL/L (3.5-5.1); SODIUM 137 MMOL/L (136-145)
[2017-02-10] MEDS: D5W w/KCl 20mEq 1,000 ML IV SCH ×3 (06:30→20:06)
[2017-02-10] MEDS ORDERED: ceFAZolin 1gm/50ml Premix 50 ML IV STA (06:32)
[2017-02-10] MEDS ORDERED: Lidocaine 1% MPF 10mg/ml 5ml ONE (07:00)
[2017-02-10] MEDS ORDERED: Propofol 200mg/20ml IV ONE (07:00)
[2017-02-10] MEDS ORDERED: ePHEDrine 50mg/ml Inj ONE ×2 (07:00→07:46)
[2017-02-10] MEDS ORDERED: NS 500ML IV ONE (07:05)
--- NOTE | 2017-02-10 07:10 | Pre-Procedure Note/Attestation ---
Pre-Procedure Note/Attestation Complete Prior to Procedure Planned Procedure: not applicable Procedure Narrative: esophagogastroduodenoscopy with PEG Indications for Procedure Pre-Operative Diagnosis: dysphagia Attestation I attest that I discussed the nature of the procedure; its benefits; risks and complications; and alternatives (and the risks and benefits of such alternatives ), prior to the procedure, with the patient (or the patient's legal sales representative education courses). I attest that, if there was a reasonable possibility of needing a blood transfusion, the patient (or the patient's legal sales representative education courses) was given the [facility] standardized written summary, pursuant to the Srinivas [place]kn[place] Blood Safety Act ([place] Health and Safety Code # 1645, as amended). I attest that I re-evaluated the patient just prior to the surgery and that there has been no change in the patient's H&P, except as documented below: MAYITO HENDRICKSON Feb 10, 2017 07:10
[2017-02-10 07:30] LABS: ANISOCYTOSIS 1+; BAND NEUTROPHILS % (MANUAL) 0 % (0-8); BASOPHILS % (MANUAL) 0 % (0-2); EOSINOPHILS % (MANUAL) 0 % (0-3); HYPOCHROMASIA 2+; LYMPHOCYTES % (MANUAL) 8 % (20-45); NEUTROPHILS % (MANUAL) 84 % (45-75); PLATELET ESTIMATE ADEQUATE; TOTAL CELLS COUNTED 100
[2017-02-10 07:31] LABS: PLATELET MORPHOLOGY NORMAL
[2017-02-10] MEDS ORDERED: Potassium Chloride 10 MEQ in D5 1/2NS 1,000 ML IV SCH (08:30)
--- NOTE | 2017-02-10 09:00 | 48 Hour Post Anesthesia Eval ---
Post Anesthesia Evaluation Procedure: EGD Date of Evaluation: Feb 10, 2017 Time of Evaluation: 09:00 Blood Pressure Systolic: 109 0: 59 Pulse Rate: 65 Respiratory Rate: 14 O2 Sat by Pulse Oximetry: 98 Airway: patent Nausea: No Vomiting: No Hydration Status: adequate Cardiopulmonary Status: stable Follow-up Care/Observations: na Post-Anesthesia Complications: none Follow-up care needed: N/A MARTHA ASTORGA CRNA Feb 10, 2017 09:00
--- NOTE | 2017-02-10 09:03 | Diagnostic Imaging Report ---
Indication: Infection, abdominal pain Technique: Spiral acquisitions obtained through the abdomen and pelvis. There is a small amount of contrast within the distal bowel; uncertain as whether this was ingested as part of the exam. No IV contrast utilized, per referring physician request.. Multiplanar reconstructions were generated. Total dose length product 443 mGycm. CTDIvol(s) 9 mGy. Dose reduction achieved using automated exposure control Comparison: None Findings: Normal appendix. There is a rectal tube in place. There is equivocally colonic diverticulosis. No evidence of diverticulitis. There is a nasogastric tube in place, tip at the level of the gastric body. No small bowel distention. Small amount of fluid is seen within the pelvis and over the dome of the spleen. No free intraperitoneal air. Lack of IV contrast limits assessment of solid organs. The liver demonstrates a cyst in segment 7. Spleen and adrenals are unremarkable. Unremarkable gallbladder. No biliary ductal dilatation. Pancreas is atrophic. The kidneys are grossly unremarkable. There is an inferior vena cava filter. No retroperitoneal or mesenteric mass or adenopathy. No pelvic mass or adenopathy. Uterus is not visualized. There is a Crockett catheter present. The bladder is distended despite this. There is some air within the bladder. Some dense material is seen dependently within the bladder laterally on the left There is generalized edema of the subcutaneous fat. There are bilateral pleural effusions, large on the left, moderate on the right. There are patchy groundglass opacities in the right middle lobe, and considerable atelectatic change of the left lower lobe. The heart size is normal. There is a small anterior wall pericardial effusion. There is minimal lumbar scoliotic deformity, likely artifactual secondary to positioning. Impression: Bilateral pleural effusions. Resultant basilar compressive atelectatic changes. Right middle lobe pulmonary parenchymal groundglass opacities. Nonspecific, could represent areas of edema or inflammation Other evidence of anasarca, with diffuse edema of the subcutaneous fat, trace ascites Rectal and nasogastric tubes present Crockett catheter. Distention of the bladder despite this. Gas within the bladder likely relates to the Crockett catheterization. Note that an inflated Crockett balloon is not visualized Opacities within or adjacent to the left posterior bladder wall, may reflect small bladder calculi, mural calcifications, or contrast from prior contrast study such as recent inferior venacavogram Other findings as noted, including small pericardial effusion, right lobe liver cyst, atrophic pancreas, inferior vena cava filter, evidence of prior hysterectomy This agrees with the preliminary interpretation provided overnight by [facility] teleradiology service. The CT scanner at [facility] is accredited by the [employer] and the scans are performed using protocols designed to limit radiation exposure to as low as reasonably achievable to attain images of sufficient resolution adequate for diagnostic evaluation.
--- NOTE | 2017-02-10 09:06 | Immediate Post-Op Evaluation ---
Immediate Post-Op Evalulation Immediate Post-Op Evalulation Procedure: EGD/PEG Date of Evaluation: Feb 10, 2017 Time of Evaluation: 07:40 IV Fluids: 500 Blood Pressure Systolic: 101 Blood Pressure Diastolic: 60 Pulse Rate: 70 Respiratory Rate: 14 O2 Sat by Pulse Oximetry: 100 Temperature (Fahrenheit): 97.5 Nausea: No Vomiting: No Complications none Patient Status: reacts, patent Hydration Status: adequate Drug: none MARTHA ASTORGA CRNA Feb 10, 2017 09:06
--- NOTE | 2017-02-10 09:07 | Anethesia Preoperative Eval ---
Anesthesia Pre-op PMH/ROS General Date of Evaluation: Feb 10, 2017 Time of Evaluation: 07:00 Anesthesiologist: telma ASA Score: ASA 4 Mallampati Score Class I : Soft palate, uvula, fauces, pillars visible Class II: Soft palate, uvula, fauces visible Class III: Soft palate, base of uvula visible Class IV: Only hard plate visible Mallampati Classification: Class III Surgeon: Thong Diagnosis: Failure to thrive Surgical Procedure: PEG Anesthesia History: none Allergies: Coded Allergies: No Known Allergies (Unverified , 02/02/17) Past Medical History Cardiovascular: Reports: HTN Pulmonary: Denies: asthma, COPD, JULIAN, other Gastrointestinal/Genitourinary: Reports: GERD Neurologic/Psychiatric: Reports: dementia Endocrine: Denies: DM, hypothyroidism, steroids, other HEENT: Denies: cataract (L), cataract (R), glaucoma, [place] (L), [place]K (R), other Hematology/Immune: Reports: anemia, DVT Musculoskeletal/Integumentary: Reports: other - severe sepsis PMH Narrative: 1. Dehydration. 2. Hypernatremia. 3. Shock. 4. Dementia. 5. Full Code. PSxH Narrative: see chart Anesthesia Pre-op Phys. Exam Physician Exam Last Vital Signs Date Time Temp Pulse Resp B/P (MAP) Pulse Ox O2 Delivery O2 Flow Rate FiO2 02/10/17 09:00 65 14 98 02/10/17 08:59 96.8 98/65 Nasal Cannula 2.0 02/09/17 19:30 28 Constitutional: NAD Neurologic: CN 2-12 intact Cardiovascular: RRR Respiratory: CTA Gastrointestinal: S/NT/ND Airway Exam Mallampati Score: Class II MO: limited ROM: limited Teeth: missing - lower Anesthesia Pre-op A/P Labs Hematology Test 02/10/17 04:30 White Blood Count 18.3 K/UL (4.8-10.8) H Red Blood Count 2.94 M/UL (4.20-5.40) L Hemoglobin 9.7 G/DL (12.0-16.0) L Hematocrit 28.8 % (37.0-47.0) L Mean Corpuscular Volume 98 FL (80-99) Mean Corpuscular Hemoglobin 33.1 PG (27.0-31.0) H Mean Corpuscular Hemoglobin Concent 33.9 G/DL (32.0-36.0) Red Cell Distribution Width 15.6 % (11.6-14.8) H Platelet Count 294 K/UL (150-450) Mean Platelet Volume 6.6 FL (6.5-10.1) Neutrophils (%) (Auto) % (45.0-75.0) Lymphocytes (%) (Auto) % (20.0-45.0) Monocytes (%) (Auto) % (1.0-10.0) Eosinophils (%) (Auto) % (0.0-3.0) Basophils (%) (Auto) % (0.0-2.0) Differential Total Cells Counted 100 Neutrophils % (Manual) 84 % (45-75) H Lymphocytes % (Manual) 8 % (20-45) L Monocytes % (Manual) 8 % (1-10) Eosinophils % (Manual) 0 % (0-3) Basophils % (Manual) 0 % (0-2) Band Neutrophils 0 % (0-8) Platelet Estimate Adequate Platelet Morphology Normal Hypochromasia 2+ Anisocytosis 1+ Coagulation Test 02/10/17 04:30 Prothrombin Time 9.9 SEC (9.30-11.50) Prothromb Time International Ratio 0.9 (0.9-1.1) Activated Partial Thromboplast Time 28 SEC (23-33) Chemistry Test 02/10/17 04:30 Sodium Level 137 MMOL/L (136-145) Potassium Level 4.3 MMOL/L (3.5-5.1) Chloride Level 106 MMOL/L (98-107) Carbon Dioxide Level 24 MMOL/L (21-32) Anion Gap 8 mmol/L (5-15) Blood Urea Nitrogen 9 mg/dL (7-18) Creatinine 0.8 MG/DL (0.55-1.30) Estimat Glomerular Filtration Rate mL/min (>60) Glucose Level 105 MG/DL (74-106) Calcium Level 8.2 MG/DL (8.5-10.1) L Studies Pre-op Studies: EKG - sr Risk Assessment & Plan Assessment: demented patient, called for consent Plan: mac Status Change Before Surgery: No Pre-Antibiotics Drug: ancef Given Within 1 Hr of Incision: Yes Time Given: 07:00 TARRILLION,MARTHA EXTRUDING MACHINE OPERATOR Feb 10, 2017 09:07
[2017-02-10] MEDS: Pantoprazole Inj IVP SCH ×2 (09:22→20:07)
--- NOTE | 2017-02-10 11:10 | Pulmonology Progress Note ---
Assessment/Plan Assessment/Plan IMPRESSION: 1. Multiorgan system failure. 2. Sepsis. 3. Decubiti. 4. Dehydration. Resolved 5. Hypernatremia. Resolved 6. Hypovolemia.Corrected 7. Hyperchloremia.Corrected 8. Acute on chronic renal failure; improved. 9. Secondary sinus tachycardia. 10. Dementia with episodes of agitation. 11. Lactic acidosis. Resolved 12. GI bleed/anemia; resolved 13. Acute R DVT; s/p IVC PLAN: 1. Continue monitoring 2. Volume support with saline 4. Broad-spectrum antibiotics. Has VRE and E.coli in urine; ID following 5. Respiratory hygiene. 6. DVT and stress ulcer prophylaxis. Has IVC filter now 7. DC planning 8. WBC still high bit improving 9. Anti-platelet therapy. 10. On broad spectrum abx 11. Cardiology consult appreciated 12. GI consult s/p PEG now 13. Endoscopy done 14. Transfuse prn 16. Discussed with RN 17. s/p IVC filter for extensive DVT 18. PICC line done 19. Reviewed abd CT Subjective Interval Events: WBC improved; S/p PEG Constitutional: Reports: no symptoms HEENT: Repors: no symptoms Respiratory: Reports: no symptoms Cardiovascular: Reports: no symptoms Gastrointestinal/Abdominal: Reports: no symptoms Genitourinary: Reports: no symptoms Allergies: Coded Allergies: No Known Allergies (Unverified , 02/02/17) Objective Last 24 Hour Vital Signs Date Time Temp Pulse Resp B/P (MAP) Pulse Ox O2 Delivery O2 Flow Rate FiO2 02/10/17 09:06 70 14 100 02/10/17 09:00 65 14 98 02/10/17 08:59 96.8 90 19 98/65 100 Nasal Cannula 2.0 02/10/17 08:07 98.2 94 20 109/59 100 Nasal Cannula 2.0 02/10/17 08:00 90 02/10/17 08:00 94 20 101/48 100 Nasal Cannula 2.0 02/10/17 07:45 99 20 95/55 100 Simple Mask 8.0 02/10/17 07:40 97 20 101/56 100 Simple Mask 8.0 02/10/17 07:35 98.2 80 20 88/50 100 Simple Mask 8.0 02/10/17 04:46 98.1 104 24 142/88 100 Nasal Cannula 2.0 02/10/17 04:00 100 11/14/17 01:45 97.7 102 22 106/66 100 Nasal Cannula 2.0 02/10/17 00:00 97.7 86 22 106/66 100 Nasal Cannula 2.0 02/10/17 00:00 101 02/09/17 20:00 97.5 18 140/71 100 Nasal Cannula 2.0 02/09/17 20:00 114 02/09/17 19:30 Nasal Cannula 2.0 28 02/09/17 19:30 99 Nasal Cannula 2.0 28 02/09/17 16:00 97.5 100 20 113/62 100 Nasal Cannula 2.0 02/09/17 16:00 100 02/09/17 12:01 105 02/09/17 12:00 97.5 101 19 105/66 100 Nasal Cannula 2.0 General Appearance: no acute distress HEENT: normocephalic Respiratory/Chest: chest wall non-tender, lungs clear Cardiovascular: normal peripheral pulses, normal rate Abdomen: normal bowel sounds, no organomegaly Extremities: no cyanosis Microbiology Date/Time Source Procedure Growth Status 02/09/17 22:00 Stool Clostridium difficile Toxin Assay - Final Complete Laboratory Tests 02/10/17 04:30: White Blood Count 18.3H, Red Blood Count 2.94L, Hemoglobin 9.7L, Hematocrit 28.8L, Mean Corpuscular Volume 98, Mean Corpuscular Hemoglobin 33.1H, Mean Corpuscular Hemoglobin Concent 33.9, Red Cell Distribution Width 15.6H, Platelet Count 294, Mean Platelet Volume 6.6, Neutrophils (%) (Auto) , Lymphocytes (%) (Auto) , Monocytes (%) (Auto) , Eosinophils (%) (Auto) , Basophils (%) (Auto) , Differential Total Cells Counted 100, Neutrophils % ( Manual) 84H, Lymphocytes % (Manual) 8L, Monocytes % (Manual) 8, Eosinophils % ( Manual) 0, Basophils % (Manual) 0, Band Neutrophils 0, Platelet Estimate Adequate, Platelet Morphology Normal, Hypochromasia 2+, Anisocytosis 1+, Prothrombin Time 9.9, Prothromb Time International Ratio 0.9, Activated Partial Thromboplast Time 28, Sodium Level 137, Potassium Level 4.3, Chloride Level 106 , Carbon Dioxide Level 24, Anion Gap 8, Blood Urea Nitrogen 9, Creatinine 0.8, Estimat Glomerular Filtration Rate , Glucose Level 105, Calcium Level 8.2L Current Medications Medications (Trade) Dose Ordered Sig/Lyndon Route PRN Reason Start Time Stop Time Status Last Admin Dose Admin Chlorhexidine Gluconate (Mayte-Hex 2%) 1 applic DAILY@2000 TOPIC 02/06/17 20:00 03/04/17 19:59 02/09/17 19:55 Dextrose/ Electrolytes 1,000 ml @ 125 mls/hr Q8H IV 02/06/17 20:00 03/06/17 19:59 02/10/17 06:30 Linezolid (Zyvox) 600 mg EVERY 12 HOURS GT 02/06/17 21:00 02/11/17 12:59 02/10/17 09:22 Pantoprazole (Protonix) 40 mg EVERY 12 HOURS IVP 02/06/17 21:00 03/04/17 20:59 02/10/17 09:22 Teja Adhikari MD Feb 10, 2017 11:10
--- NOTE | 2017-02-10 12:21 | Infectious Diseases Prog Note ---
"Assessment/Plan Assessment/Plan antibiotics : linezolid A 1. e.coli | VRE UTI 2. shock resolved 3. leucocytosis improving 4. HTN 5. + blood cultures with coag neg staph likely contaminated 6. DVT s/p IVC filter placement P 1. continue linezolid 2 more days 2. will follow up cultures Subjective ROS Limited/Unobtainable: Yes Allergies: Coded Allergies: No Known Allergies (Unverified , 02/02/17) Objective Vital Signs Last 24 Hour Vital Signs Date Time Temp Pulse Resp B/P (MAP) Pulse Ox O2 Delivery O2 Flow Rate FiO2 02/10/17 11:52 96.4 96 20 125/63 100 Nasal Cannula 2.0 02/10/17 09:06 70 14 100 02/10/17 09:00 65 14 98 02/10/17 08:59 96.8 90 19 98/65 100 Nasal Cannula 2.0 02/10/17 08:07 98.2 94 20 109/59 100 Nasal Cannula 2.0 02/10/17 08:00 90 02/10/17 08:00 94 20 101/48 100 Nasal Cannula 2.0 02/10/17 07:45 99 20 95/55 100 Simple Mask 8.0 02/10/17 07:40 97 20 101/56 100 Simple Mask 8.0 02/10/17 07:35 98.2 80 20 88/50 100 Simple Mask 8.0 02/10/17 04:46 98.1 104 24 142/88 100 Nasal Cannula 2.0 02/10/17 04:00 100 02/10/17 01:45 97.7 102 22 106/66 100 Nasal Cannula 2.0 02/10/17 00:00 97.7 86 22 106/66 100 Nasal Cannula 2.0 02/10/17 00:00 101 02/09/17 20:00 97.5 18 140/71 100 Nasal Cannula 2.0 02/09/17 20:00 114 02/09/17 19:30 Nasal Cannula 2.0 28 02/09/17 19:30 99 Nasal Cannula 2.0 28 02/09/17 16:00 97.5 100 20 113/62 100 Nasal Cannula 2.0 02/09/17 16:00 100 Height (Feet): 5 Height (Inches): 5.00 Weight (Pounds): 166 Respiratory/Chest: lungs clear Cardiovascular: normal rate, regular rhythm, no gallop/murmur Abdomen: soft, non tender, other - GT Extremities: other - + edema Microbiology Date/Time Source Procedure Growth Status 02/09/17 22:00 Stool Clostridium difficile Toxin Assay - Final Complete Laboratory Tests Test 02/10/17 04:30 White Blood Count 18.3 K/UL (4.8-10.8) H Red Blood Count 2.94 M/UL (4.20-5.40) L Hemoglobin 9.7 G/DL (12.0-16.0) L Hematocrit 28.8 % (37.0-47.0) L Mean Corpuscular Volume 98 FL (80-99) Mean Corpuscular Hemoglobin 33.1 PG (27.0-31.0) H Mean Corpuscular Hemoglobin Concent 33.9 G/DL (32.0-36.0) Red Cell Distribution Width 15.6 % (11.6-14.8) H Platelet Count 294 K/UL (150-450) Mean Platelet Volume 6.6 FL (6.5-10.1) Neutrophils (%) (Auto) % (45.0-75.0) Lymphocytes (%) (Auto) % (20.0-45.0) Monocytes (%) (Auto) % (1.0-10.0) Eosinophils (%) (Auto) % (0.0-3.0) Basophils (%) (Auto) % (0.0-2.0) Differential Total Cells Counted 100 Neutrophils % (Manual) 84 % (45-75) H Lymphocytes % (Manual) 8 % (20-45) L Monocytes % (Manual) 8 % (1-10) Eosinophils % (Manual) 0 % (0-3) Basophils % (Manual) 0 % (0-2) Band Neutrophils 0 % (0-8) Platelet Estimate Adequate Platelet Morphology Normal Hypochromasia 2+ Anisocytosis 1+ Prothrombin Time 9.9 SEC (9.30-11.50) Prothromb Time International Ratio 0.9 (0.9-1.1) Activated Partial Thromboplast Time 28 SEC (23-33) Sodium Level 137 MMOL/L (136-145) Potassium Level 4.3 MMOL/L (3.5-5.1) Chloride Level 106 MMOL/L (98-107) Carbon Dioxide Level 24 MMOL/L (21-32) Anion Gap 8 mmol/L (5-15) Blood Urea Nitrogen 9 mg/dL (7-18) Creatinine 0.8 MG/DL (0.55-1.30) Estimat Glomerular Filtration Rate mL/min (>60) Glucose Level 105 MG/DL (74-106) Calcium Level 8.2 MG/DL (8.5-10.1) HENRY KEYES Feb 10, 2017 12:21"
[2017-02-10] MEDS ORDERED: Tubing IV Secondary IV ONE (14:32)
--- NOTE | 2017-02-10 16:24 | Wound Care Consultation ---
Wound Assessment Wound Assessment #1: Wound Present on Admission: No New Wound: Yes Status Change of Wound: No Wound Location Body Site Modif: left, upper Wound Location Body Site: scapula Wound Type: pressure ulcer Bayron Test: Does not Bayron Pressure Ulcer Stage: II - open blister Blisters: Denuded Blister Wound Thickness: Partial Thickness Wound Length: 2.5 Wound Width: 1.5 Wound Depth: less than 0.1 Percent of Wound Elmer/Red: 100 Wound Drainage Amount: None Wound Drainage Odor: None/Absent Tissue Surrounding Wound: Erythemic Wound General Appearance: Reddened Wound Assessment #2: Wound Number: 2 Wound Present on Admission: No New Wound: Yes Status Change of Wound: No Wound Location Body Site Modif: left Wound Location Body Site: other - neck Wound Type: blister - open Bayron Test: Does not Bayron Blisters: Denuded Blister Wound Thickness: Partial Thickness Wound Length: 2.0 Wound Width: 1.0 Wound Depth: less than 0.1 Percent of Wound Elmer/Red: 100 Wound Drainage Description: Serosanguineous Wound Drainage Amount: None Wound Drainage Odor: None/Absent Tissue Surrounding Wound: Intact Wound General Appearance: Reddened Wound Assessment #3: Wound Number: 3 Wound Present on Admission: No New Wound: Yes Status Change of Wound: No Wound Location Body Site Modif: left, dorsal Wound Location Body Site: hand Wound Type: blister - open Bayron Test: Does not Bayron Blisters: Denuded Blister Wound Thickness: Partial Thickness Wound Length: 5.5 Wound Width: 3.5 Wound Depth: less than 0.1 Percent of Wound Elmer/Red: 100 Wound Drainage Description: Serosanguineous Wound Drainage Amount: Scant Wound Drainage Odor: None/Absent Tissue Surrounding Wound: Erythemic Wound General Appearance: Reddened, Draining Wound Assessment #4: Wound Number: 4 Wound Present on Admission: No New Wound: Yes Status Change of Wound: No Wound Location Body Site Modif: right, dorsal Wound Location Body Site: finger - 3rd Wound Type: blister Bayron Test: Does not Bayron Blisters: Blister w/ Intact Cap Wound Length: 1.5 Wound Width: 0.5 Other Colors Identified: fluid filled Wound Drainage Amount: None Wound Drainage Odor: None/Absent Tissue Surrounding Wound: Intact Wound Assessment #5: Wound Number: 5 Wound Present on Admission: No New Wound: Yes Status Change of Wound: No Wound Location Body Site Modif: right, dorsal Wound Location Body Site: finger - 2nd Wound Type: blister Bayron Test: Does not Bayron Blisters: Blister w/ Intact Cap Wound Length: 1.5 Wound Width: 0.5 Other Colors Identified: fluid filled Wound Drainage Amount: None Wound Drainage Odor: None/Absent Tissue Surrounding Wound: Intact Wound Comment 1 Sacral area scattered stage II pressure ulcer #2 Left buttock stage II pressure ulcer #3 Right buttock stage II pressure ulcer #4 Right trochanter DTI pressure ulcer #5 Right buttock DTI pressure ulcer #6 Right ischial tuberosity DTI pressure ulcer #7 Right hand open blister on dorsal hand #8 Right lateral malleolus DTI pressure ulcer #9 Right plantar 5th metatarsal head DTI blood blister pressure ulcer #10 Right lateral mid foot DTI pressure ulcer #11 Right heel DTI pressure ulcer #12 Right medial lower leg open blister stage II pressure ulcer #13 Left heel unstageable pressure ulcer with black eschar adhered to wound bed #14 Left lateral mid foot DTI pressure ulcer #15 Left lateral 5th metatarsal head DTI pressure ulcer #16 Left lateral malleolus DTI pressure ulcer #17 Right upper back area scattered DTI pressure ulcers #18 Left scapula open blister stage II pressure ulcer #19 Left side of the neck open blister with partial thickness skin loss #20 Left dorsal hand open blister with partial thickness skin loss #21 Right 3rd finger with fluid filled intact blister #22 Right 2rd finger with fluid filled intact blister #23 Perineal chemical burn Reassessment done on this Pt. Per existing wounds noted without deterioration and will cont the same wound treatment and recommendation. New open and intact blisters noted on multiple area, will follow wound care treatment for intact and denuded blisters per protocol. Chemical burn noted on perineal area, will cont to apply skin barrier cream application for incontinent related skin problems per protocol. SONIA UMANZOR RN Feb 10, 2017 16:24
[2017-02-10] MEDS: Dyna-Hex 2% Top Sol 2oz TOPIC SCH (20:06)
--- NOTE | 2017-02-10 21:19 | General Progress Note ---
Assessment/Plan Assessment/Plan Assessment - anorexia - mildly elevated alk phos - neg CT - malnutrition - anemia - dysphagia - leukocytosis - OBS - DVT - filter Recommendations - IVF - abx per ID - monitor H&H - PPI - PEG today - re check LFT Post Procedure Addendum - PEG placed - will begin TF in am Subjective Allergies: Coded Allergies: No Known Allergies (Unverified , 02/02/17) Subjective doing better than last week out of ICU for PEG today labs noted CT noted d/w son re PEG placement Objective Last 24 Hour Vital Signs Date Time Temp Pulse Resp B/P (MAP) Pulse Ox O2 Delivery O2 Flow Rate FiO2 02/10/17 16:00 98.1 99 21 116/61 100 Nasal Cannula 2.0 02/10/17 16:00 97 02/10/17 14:34 100 Nasal Cannula 2.0 28 02/10/17 14:34 Nasal Cannula 2.0 28 02/10/17 12:00 97 02/10/17 11:52 96.4 96 20 125/63 100 Nasal Cannula 2.0 02/10/17 09:06 70 14 100 02/10/17 09:00 65 14 98 02/10/17 08:59 96.8 90 19 98/65 100 Nasal Cannula 2.0 02/10/17 08:07 98.2 94 20 109/59 100 Nasal Cannula 2.0 02/10/17 08:00 90 02/10/17 08:00 94 20 101/48 100 Nasal Cannula 2.0 02/10/17 07:45 99 20 95/55 100 Simple Mask 8.0 02/10/17 07:40 97 20 101/56 100 Simple Mask 8.0 02/10/17 07:35 98.2 80 20 88/50 100 Simple Mask 8.0 02/10/17 04:46 98.1 104 24 142/88 100 Nasal Cannula 2.0 02/10/17 04:00 100 02/10/17 01:45 97.7 102 22 106/66 100 Nasal Cannula 2.0 02/10/17 00:00 97.7 86 22 106/66 100 Nasal Cannula 2.0 02/10/17 00:00 101 Intake and Output 02/10/17 02/11/17 19:00 07:00 Intake Total 1280 ml Output Total 1400 ml Balance -120 ml IV Total 1250 ml Other 30 ml Output Urine Total 1400 ml Stool Total 0 ml Laboratory Tests 02/10/17 04:30: White Blood Count 18.3H, Red Blood Count 2.94L, Hemoglobin 9.7L, Hematocrit 28.8L, Mean Corpuscular Volume 98, Mean Corpuscular Hemoglobin 33.1H, Mean Corpuscular Hemoglobin Concent 33.9, Red Cell Distribution Width 15.6H, Platelet Count 294, Mean Platelet Volume 6.6, Neutrophils (%) (Auto) , Lymphocytes (%) (Auto) , Monocytes (%) (Auto) , Eosinophils (%) (Auto) , Basophils (%) (Auto) , Differential Total Cells Counted 100, Neutrophils % ( Manual) 84H, Lymphocytes % (Manual) 8L, Monocytes % (Manual) 8, Eosinophils % ( Manual) 0, Basophils % (Manual) 0, Band Neutrophils 0, Platelet Estimate Adequate, Platelet Morphology Normal, Hypochromasia 2+, Anisocytosis 1+, Prothrombin Time 9.9, Prothromb Time International Ratio 0.9, Activated Partial Thromboplast Time 28, Sodium Level 137, Potassium Level 4.3, Chloride Level 106 , Carbon Dioxide Level 24, Anion Gap 8, Blood Urea Nitrogen 9, Creatinine 0.8, Estimat Glomerular Filtration Rate , Glucose Level 105, Calcium Level 8.2L Height (Feet): 5 Height (Inches): 5.00 Weight (Pounds): 166 Objective Elderly AA woman NCAT, (+) NGT supple CTA RR Soft NT ND no edema minimally interactive MAYITO HENDRICKSON Feb 10, 2017 21:19
[2017-02-11] VITALS: BP 122/75
[2017-02-11] MEDS: D5W w/KCl 20mEq 1,000 ML IV SCH ×3 (02:24→20:44)
--- NOTE | 2017-02-11 02:45 | Progress Note ---
DATE: 02/10/2017 CARDIOLOGY PROGRESS NOTE SUBJECTIVE: The patient remains with poor appetite. CAT scan has been unremarkable. She is status post IVC filter for DVT and she is at high risk for bleeding complications. She is status post PEG placement. OBJECTIVE: VITAL SIGNS: Blood pressure 116/61, pulse 99, respirations 21, and afebrile. HEENT: Temporal wasting. Pale conjunctivae. Oropharynx clear. NECK: Supple. LUNGS: With diminished breath sounds. CARDIAC: Regular rhythm and rate. Normal S1 and S2 with a fourth heart sound. ABDOMEN: Soft and slightly distended. No guarding. G-tube intact. EXTREMITIES: No edema. LABORATORY DATA: White count 18 and hemoglobin 9.7. Potassium 4.3, BUN 9, and creatinine 0.8. Magnesium yesterday was 1.2. Albumin 1.7. IMPRESSION: 1. Dysphagia, status post gastrostomy tube. 2. Sepsis with shock, improved. 3. Deep venous thrombosis, status post inferior vena cava filter. 4. Severe hypomagnesemia. 5. Severe protein-calorie malnutrition. 6. Acute myocardial infarction. PLAN: 1. Volume support. 2. Antimicrobials. 3. Feedings by G-tube. 4. Holding antiplatelet drugs in view of recent GI bleeding history. 5. Once blood pressure is more stable, consideration for beta-ann therapy will remain. Audi Garcia M.D. DR: CARLOS JOB#: [id number] CC:
[2017-02-11 04:00] VITALS: BP 113/61
--- NOTE | 2017-02-11 04:00 | Procedure Note ---
DATE OF PROCEDURE: 02/10/2017 PROCEDURE: Upper gastrointestinal endoscopy with gastrostomy tube placement. SURGEON: Jose Calderon M.D. ANESTHESIA: Please see the separate anesthesiologist notes. PRE-ENDOSCOPIC DIAGNOSIS: Dysphagia. POST-ENDOSCOPIC DIAGNOSIS: Gastrostomy tube placement. DESCRIPTION OF PROCEDURE: The procedure, its risks, indications, alternatives, and possible complications including, but not limited to, bleeding, infection, perforation, , and anesthesia complications were explained to the patient's son and informed consent was obtained. The patient was then sedated in the supine position. A diagnostic upper endoscope was introduced into oropharynx and advanced to the duodenum. The endoscopic views were normal. The location for the gastrostomy tube placement was identified by palpation and transillumination techniques. The outside skin was sterilely prepared, anesthetized, and incised and the trocar needle was used to place the gastrostomy tube using the standard pull technique. The patient tolerated the procedure well and was left to recovery in good condition. COMPLICATIONS: None. RECOMMENDATIONS: 1. Observe overnight. 2. Begin tube feedings tomorrow. Jose Calderon M.D. DR: SENA JOB#: [id number] CC:
[2017-02-11 05:12] LABS: MEAN CORPUSCULAR HEMOGLOBIN 32.1 PG (27.0-31.0); MEAN CORPUSCULAR HGB CONC 31.7 G/DL (32.0-36.0); MEAN CORPUSCULAR VOLUME 101 FL (80-99); MEAN PLATELET VOLUME 6.1 FL (6.5-10.1); PLATELET COUNT 329 K/UL (150-450); RED BLOOD COUNT 2.81 M/UL (4.20-5.40); RED CELL DISTRIBUTION WIDTH 15.7 % (11.6-14.8); WHITE BLOOD COUNT 14.6 K/UL (4.8-10.8)
[2017-02-11 06:09] LABS: ALANINE AMINOTRANSFERASE 23 U/L (12-78); ALBUMIN/GLOBULIN RATIO 0.4 (1.0-2.7); ANION GAP 4 mmol/L (5-15); ASPARTATE AMINO TRANSFERASE 18 U/L (15-37); CALCIUM 7.8 MG/DL (8.5-10.1); CARBON DIOXIDE 23 MMOL/L (21-32); CHLORIDE 97 MMOL/L (98-107); CREATININE 0.8 MG/DL (0.55-1.30); SODIUM 124 MMOL/L (136-145); TOTAL PROTEIN 5.5 G/DL (6.4-8.2)
[2017-02-11 06:35] LABS: POTASSIUM 6.3 MMOL/L (3.5-5.1)
[2017-02-11 07:21] LABS: ALANINE AMINOTRANSFERASE 27 U/L (12-78); ALBUMIN/GLOBULIN RATIO 0.4 (1.0-2.7); ANION GAP 7 mmol/L (5-15); ASPARTATE AMINO TRANSFERASE 23 U/L (15-37); CARBON DIOXIDE 23 MMOL/L (21-32); CHLORIDE 105 MMOL/L (98-107); CREATININE 0.8 MG/DL (0.55-1.30); SODIUM 135 MMOL/L (136-145); TOTAL PROTEIN 6.3 G/DL (6.4-8.2)
[2017-02-11 08:00] VITALS: BP 133/68
[2017-02-11] MEDS: Pantoprazole Inj IVP SCH ×2 (08:48→20:43)
[2017-02-11 10:03] LABS: ANISOCYTOSIS 1+; BAND NEUTROPHILS % (MANUAL) 0 % (0-8); BASOPHILS % (MANUAL) 1 % (0-2); EOSINOPHILS % (MANUAL) 0 % (0-3); LYMPHOCYTES % (MANUAL) 9 % (20-45); MACROCYTES 1+; NEUTROPHILS % (MANUAL) 87 % (45-75); PLATELET ESTIMATE ADEQUATE; PLATELET MORPHOLOGY NORMAL; TOTAL CELLS COUNTED 100
[2017-02-11 10:04] LABS: ACANTHOCYTES OCCASIONAL; BURR CELLS 1+
[2017-02-11 10:05] LABS: HYPOCHROMASIA 1+
--- NOTE | 2017-02-11 11:02 | Infectious Diseases Prog Note ---
"Assessment/Plan Assessment/Plan antibiotics : linezolid A 1. e.coli | VRE UTI 2. shock resolved 3. leucocytosis improving 4. HTN 5. + blood cultures with coag neg staph likely contaminated 6. DVT s/p IVC filter placement P 1. continue linezolid 1 more day 2. will follow up cultures Subjective ROS Limited/Unobtainable: Yes Allergies: Coded Allergies: No Known Allergies (Unverified , 02/02/17) Objective Vital Signs Last 24 Hour Vital Signs Date Time Temp Pulse Resp B/P (MAP) Pulse Ox O2 Delivery O2 Flow Rate FiO2 02/11/17 08:00 93 02/11/17 08:00 97.7 89 24 133/68 93 Nasal Cannula 2.0 02/11/17 07:56 96 Nasal Cannula 2.0 28 02/11/17 07:56 Nasal Cannula 2.0 28 02/11/17 04:00 97.5 93 18 113/61 93 Nasal Cannula 2.0 02/11/17 04:00 93 02/11/17 00:00 98 02/11/17 00:00 97.7 90 20 122/75 93 Nasal Cannula 2.0 02/10/17 20:00 103 02/10/17 20:00 98.2 106 20 133/62 93 Nasal Cannula 2.0 02/10/17 19:00 100 Nasal Cannula 2.0 28 02/10/17 19:00 Nasal Cannula 2.0 28 02/10/17 16:00 98.1 99 21 116/61 100 Nasal Cannula 2.0 02/10/17 16:00 97 02/10/17 14:34 100 Nasal Cannula 2.0 28 02/10/17 14:34 Nasal Cannula 2.0 28 02/10/17 12:00 97 02/10/17 11:52 96.4 96 20 125/63 100 Nasal Cannula 2.0 Height (Feet): 5 Height (Inches): 5.00 Weight (Pounds): 159 Respiratory/Chest: lungs clear Cardiovascular: normal rate, regular rhythm, no gallop/murmur Abdomen: soft, non tender, other - GT Extremities: no edema, other - right arm PICC Microbiology Date/Time Source Procedure Growth Status 02/09/17 22:00 Stool Clostridium difficile Toxin Assay - Final Complete Laboratory Tests Test 02/11/17 04:00 02/11/17 06:30 White Blood Count 14.6 K/UL (4.8-10.8) H Red Blood Count 2.81 M/UL (4.20-5.40) L Hemoglobin 9.0 G/DL (12.0-16.0) L Hematocrit 28.4 % (37.0-47.0) L Mean Corpuscular Volume 101 FL (80-99) H Mean Corpuscular Hemoglobin 32.1 PG (27.0-31.0) H Mean Corpuscular Hemoglobin Concent 31.7 G/DL (32.0-36.0) L Red Cell Distribution Width 15.7 % (11.6-14.8) H Platelet Count 329 K/UL (150-450) Mean Platelet Volume 6.1 FL (6.5-10.1) L Neutrophils (%) (Auto) % (45.0-75.0) Lymphocytes (%) (Auto) % (20.0-45.0) Monocytes (%) (Auto) % (1.0-10.0) Eosinophils (%) (Auto) % (0.0-3.0) Basophils (%) (Auto) % (0.0-2.0) Differential Total Cells Counted 100 Neutrophils % (Manual) 87 % (45-75) H Lymphocytes % (Manual) 9 % (20-45) L Monocytes % (Manual) 3 % (1-10) Eosinophils % (Manual) 0 % (0-3) Basophils % (Manual) 1 % (0-2) Band Neutrophils 0 % (0-8) Platelet Estimate Adequate Platelet Morphology Normal Hypochromasia 1+ Anisocytosis 1+ Macrocytosis 1+ [place] Cells 1+ Acanthocytes Occasional Sodium Level 124 MMOL/L (136-145) #L 135 MMOL/L (136-145) #L Potassium Level 6.3 MMOL/L (3.5-5.1) *H 5.0 MMOL/L (3.5-5.1) Chloride Level 97 MMOL/L (98-107) L 105 MMOL/L (98-107) Carbon Dioxide Level 23 MMOL/L (21-32) 23 MMOL/L (21-32) Anion Gap 4 mmol/L (5-15) L 7 mmol/L (5-15) Blood Urea Nitrogen 4 mg/dL (7-18) L 5 mg/dL (7-18) L Creatinine 0.8 MG/DL (0.55-1.30) 0.8 MG/DL (0.55-1.30) Estimat Glomerular Filtration Rate mL/min (>60) mL/min (>60) Glucose Level 475 MG/DL (74-106) #H 108 MG/DL (74-106) #H Calcium Level 7.8 MG/DL (8.5-10.1) L 9.0 MG/DL (8.5-10.1) Total Bilirubin 0.6 MG/DL (0.2-1.0) 0.6 MG/DL (0.2-1.0) Aspartate Amino Transf (AST/SGOT) 18 U/L (15-37) 23 U/L (15-37) Alanine Aminotransferase (ALT/SGPT) 23 U/L (12-78) 27 U/L (12-78) Alkaline Phosphatase 129 U/L (46-116) H 160 U/L (46-116) H Total Protein 5.5 G/DL (6.4-8.2) L 6.3 G/DL (6.4-8.2) L Albumin 1.5 G/DL (3.4-5.0) L 1.8 G/DL (3.4-5.0) L Globulin 4.0 g/dL 4.5 g/dL Albumin/Globulin Ratio 0.4 (1.0-2.7) L 0.4 (1.0-2.7) L HENRY SIMMS Feb 11, 2017 11:02"
[2017-02-11 12:00] VITALS: BP 117/62
[2017-02-11] MEDS ORDERED: ZYVOX600 MG GT (15:08)
--- NOTE | 2017-02-11 15:08 | Pulmonology Progress Note ---
Assessment/Plan Assessment/Plan IMPRESSION: 1. Multiorgan system failure. 2. Sepsis. 3. Decubiti. 4. Dehydration. Resolved 5. Hypernatremia. Resolved 6. Hypovolemia.Corrected 7. Hyperchloremia.Corrected 8. Acute on chronic renal failure; improved. 9. Secondary sinus tachycardia. 10. Dementia with episodes of agitation. 11. Lactic acidosis. Resolved 12. GI bleed/anemia; resolved 13. Acute R DVT; s/p IVC PLAN: 1. Continue monitoring 2. Volume support with saline 4. Broad-spectrum antibiotics. Has VRE and E.coli in urine; ID following 5. Respiratory hygiene. 6. DVT and stress ulcer prophylaxis. Has IVC filter now 7. DC planning 8. WBC still high bit improving 9. Anti-platelet therapy. 10. On broad spectrum abx 11. Cardiology consult appreciated 12. GI consult s/p PEG now 13. Endoscopy done 14. Transfuse prn 16. Discussed with RN 17. s/p IVC filter for extensive DVT 18. PICC line done 19. Reviewed abd CT DC to SNF Subjective Interval Events: Much better Constitutional: Reports: no symptoms HEENT: Repors: no symptoms Respiratory: Reports: no symptoms Cardiovascular: Reports: no symptoms Gastrointestinal/Abdominal: Reports: no symptoms Allergies: Coded Allergies: No Known Allergies (Unverified , 02/02/17) Objective Last 24 Hour Vital Signs Date Time Temp Pulse Resp B/P (MAP) Pulse Ox O2 Delivery O2 Flow Rate FiO2 02/11/17 12:00 98.0 98 20 117/62 100 Nasal Cannula 2.0 02/11/17 11:36 94 02/11/17 08:00 93 02/11/17 08:00 97.7 89 24 133/68 93 Nasal Cannula 2.0 02/11/17 07:56 96 Nasal Cannula 2.0 28 02/11/17 07:56 Nasal Cannula 2.0 28 02/11/17 04:00 97.5 93 18 113/61 93 Nasal Cannula 2.0 02/11/17 04:00 93 02/11/17 00:00 98 02/11/17 00:00 97.7 90 20 122/75 93 Nasal Cannula 2.0 02/10/17 20:00 103 02/10/17 20:00 98.2 106 20 133/62 93 Nasal Cannula 2.0 02/10/17 19:00 100 Nasal Cannula 2.0 28 02/10/17 19:00 Nasal Cannula 2.0 28 02/10/17 16:00 98.1 99 21 116/61 100 Nasal Cannula 2.0 02/10/17 16:00 97 Intake and Output 02/11/17 02/12/17 19:00 07:00 Intake Total 625 ml Balance 625 ml IV Total 625 ml General Appearance: no acute distress HEENT: normocephalic Respiratory/Chest: chest wall non-tender, lungs clear Cardiovascular: normal peripheral pulses Abdomen: normal bowel sounds Microbiology Date/Time Source Procedure Growth Status 02/09/17 22:00 Stool Clostridium difficile Toxin Assay - Final Complete Laboratory Tests 02/11/17 04:00: White Blood Count 14.6H, Red Blood Count 2.81L, Hemoglobin 9.0L, Hematocrit 28.4L, Mean Corpuscular Volume 101H, Mean Corpuscular Hemoglobin 32.1H, Mean Corpuscular Hemoglobin Concent 31.7L, Red Cell Distribution Width 15.7H, Platelet Count 329, Mean Platelet Volume 6.1L, Neutrophils (%) (Auto) , Lymphocytes (%) (Auto) , Monocytes (%) (Auto) , Eosinophils (%) (Auto) , Basophils (%) (Auto) , Differential Total Cells Counted 100, Neutrophils % ( Manual) 87H, Lymphocytes % (Manual) 9L, Monocytes % (Manual) 3, Eosinophils % ( Manual) 0, Basophils % (Manual) 1, Band Neutrophils 0, Platelet Estimate Adequate, Platelet Morphology Normal, Hypochromasia 1+, Anisocytosis 1+, Macrocytosis 1+, [place]anks[place] Cells 1+, Acanthocytes Occasional, Sodium Level 124#L, Potassium Level 6.3*H, Chloride Level 97L, Carbon Dioxide Level 23, Anion Gap 4L , Blood Urea Nitrogen 4L, Creatinine 0.8, Estimat Glomerular Filtration Rate , Glucose Level 475#H, Calcium Level 7.8L, Total Bilirubin 0.6, Aspartate Amino Transf (AST/SGOT) 18, Alanine Aminotransferase (ALT/SGPT) 23, Alkaline Phosphatase 129H, Total Protein 5.5L, Albumin 1.5L, Globulin 4.0, Albumin/ Globulin Ratio 0.4L 02/11/17 06:30: Sodium Level 135#L, Potassium Level 5.0, Chloride Level 105, Carbon Dioxide Level 23, Anion Gap 7, Blood Urea Nitrogen 5L, Creatinine 0.8, Estimat Glomerular Filtration Rate , Glucose Level 108#H, Calcium Level 9.0, Total Bilirubin 0.6, Aspartate Amino Transf (AST/SGOT) 23, Alanine Aminotransferase ( ALT/SGPT) 27, Alkaline Phosphatase 160H, Total Protein 6.3L, Albumin 1.8L, Globulin 4.5, Albumin/Globulin Ratio 0.4L Current Medications Medications (Trade) Dose Ordered Sig/Lyndon Route PRN Reason Start Time Stop Time Status Last Admin Dose Admin Chlorhexidine Gluconate (Mayte-Hex 2%) 1 applic DAILY@2000 TOPIC 02/06/17 20:00 03/04/17 19:59 02/10/17 20:06 Dextrose/ Electrolytes 1,000 ml @ 125 mls/hr Q8H IV 02/06/17 20:00 03/06/17 19:59 02/11/17 12:41 Linezolid (Zyvox) 600 mg EVERY 12 HOURS GT 02/06/17 21:00 02/12/17 23:59 02/11/17 08:48 Pantoprazole (Protonix) 40 mg EVERY 12 HOURS IVP 02/06/17 21:00 03/04/17 20:59 02/11/17 08:48 Teja Adhikari MD Feb 11, 2017 15:08
[2017-02-11 16:15] VITALS: BP 123/64
[2017-02-11 20:00] VITALS: BP 116/73
--- NOTE | 2017-02-11 20:11 | General Progress Note ---
Assessment/Plan Assessment/Plan Assessment - anorexia - s/p PEG - mildly elevated alk phos - neg CT - malnutrition - anemia - dysphagia - leukocytosis - OBS - DVT - filter Recommendations - IVF - abx per ID - monitor H&H - PPI - PEG feeds today Subjective Allergies: Coded Allergies: No Known Allergies (Unverified , 02/02/17) Subjective s/p PEG NAD / comfortable Objective Last 24 Hour Vital Signs Date Time Temp Pulse Resp B/P (MAP) Pulse Ox O2 Delivery O2 Flow Rate FiO2 02/11/17 19:13 98 Nasal Cannula 2.0 28 02/11/17 19:13 Nasal Cannula 2.0 28 02/11/17 16:15 97.7 100 20 123/64 100 Nasal Cannula 2.0 02/11/17 16:00 100 02/11/17 12:00 98.0 98 20 117/62 100 Nasal Cannula 2.0 02/11/17 11:36 94 02/11/17 08:00 93 02/11/17 08:00 97.7 89 24 133/68 93 Nasal Cannula 2.0 02/11/17 07:56 96 Nasal Cannula 2.0 28 02/11/17 07:56 Nasal Cannula 2.0 28 02/11/17 04:00 97.5 93 18 113/61 93 Nasal Cannula 2.0 02/11/17 04:00 93 02/11/17 00:00 98 02/11/17 00:00 97.7 90 20 122/75 93 Nasal Cannula 2.0 Intake and Output 02/11/17 02/12/17 19:00 07:00 Intake Total 1000 ml Output Total 2350 ml Balance -1350 ml Intake Free Water 100 ml IV Total 625 ml Tube Feeding 175 ml Other 100 ml Output Urine Total 2300 ml Stool Total 50 ml Laboratory Tests 02/11/17 04:00: White Blood Count 14.6H, Red Blood Count 2.81L, Hemoglobin 9.0L, Hematocrit 28.4L, Mean Corpuscular Volume 101H, Mean Corpuscular Hemoglobin 32.1H, Mean Corpuscular Hemoglobin Concent 31.7L, Red Cell Distribution Width 15.7H, Platelet Count 329, Mean Platelet Volume 6.1L, Neutrophils (%) (Auto) , Lymphocytes (%) (Auto) , Monocytes (%) (Auto) , Eosinophils (%) (Auto) , Basophils (%) (Auto) , Differential Total Cells Counted 100, Neutrophils % ( Manual) 87H, Lymphocytes % (Manual) 9L, Monocytes % (Manual) 3, Eosinophils % ( Manual) 0, Basophils % (Manual) 1, Band Neutrophils 0, Platelet Estimate Adequate, Platelet Morphology Normal, Hypochromasia 1+, Anisocytosis 1+, Macrocytosis 1+, [place] Cells 1+, Acanthocytes Occasional, Sodium Level 124#L, Potassium Level 6.3*H, Chloride Level 97L, Carbon Dioxide Level 23, Anion Gap 4L , Blood Urea Nitrogen 4L, Creatinine 0.8, Estimat Glomerular Filtration Rate , Glucose Level 475#H, Calcium Level 7.8L, Total Bilirubin 0.6, Aspartate Amino Transf (AST/SGOT) 18, Alanine Aminotransferase (ALT/SGPT) 23, Alkaline Phosphatase 129H, Total Protein 5.5L, Albumin 1.5L, Globulin 4.0, Albumin/ Globulin Ratio 0.4L 02/11/17 06:30: Sodium Level 135#L, Potassium Level 5.0, Chloride Level 105, Carbon Dioxide Level 23, Anion Gap 7, Blood Urea Nitrogen 5L, Creatinine 0.8, Estimat Glomerular Filtration Rate , Glucose Level 108#H, Calcium Level 9.0, Total Bilirubin 0.6, Aspartate Amino Transf (AST/SGOT) 23, Alanine Aminotransferase ( ALT/SGPT) 27, Alkaline Phosphatase 160H, Total Protein 6.3L, Albumin 1.8L, Globulin 4.5, Albumin/Globulin Ratio 0.4L Height (Feet): 5 Height (Inches): 5.00 Weight (Pounds): 159 Objective Elderly AA woman NCAT, (+) NGT supple CTA RR Soft NT ND, (+) PEG no edema minimally interactive MAYITO HENDRICKSON Feb 11, 2017 20:11
[2017-02-11] MEDS: Dyna-Hex 2% Top Sol 2oz TOPIC SCH (20:43)
[2017-02-11] MEDS: Carvedilol 6.25mg Tab GT SCH (22:57)
[2017-02-12] VITALS: BP 120/67
--- NOTE | 2017-02-12 01:45 | Progress Note ---
DATE: 02/11/2017 CARDIOLOGY PROGRESS NOTE SUBJECTIVE: The patient is status post IVC filter for DVT and gastrostomy tube because of dysphagia and feedings were started today. The patient's blood pressure is improving. OBJECTIVE: VITAL SIGNS: Blood pressure 123/64, heart rate 100, and respiratory rate 20. LUNGS: Bilateral breath sounds. No wheezing. HEART: Regular rhythm. Rapid rate. Normal S1 and S2 with a fourth heart sound. ABDOMEN: Soft and slightly distended. G-tube intact. EXTREMITIES: No edema. IMPRESSION: 1. Acute myocardial infarction. 2. Deep venous thrombosis status post inferior vena cava filter. 3. Sepsis with shock. 4. Severe protein-calorie malnutrition. 5. Anemia status post percutaneous endoscopic gastrostomy. 6. Secondary sinus tachycardia. 7. Acute on chronic diastolic CHF. PLAN: 1. Start low dose beta-ann. 2. GI clearance for anti-platelet therapy. 3. Advanced nutrition by feeding tube. 4. Antibiotics per Infectious Disease apartment leasing consultant. 5. DC IVF once feedings tolerated. Audi Garcia M.D. DR: CARLOS JOB#: [id number] CC: JAMES
[2017-02-12 04:00] VITALS: BP 115/55
[2017-02-12 05:08] LABS: MEAN CORPUSCULAR HEMOGLOBIN 32.6 PG (27.0-31.0); MEAN CORPUSCULAR HGB CONC 33.1 G/DL (32.0-36.0); MEAN CORPUSCULAR VOLUME 99 FL (80-99); PLATELET COUNT 342 K/UL (150-450); RED BLOOD COUNT 2.89 M/UL (4.20-5.40); RED CELL DISTRIBUTION WIDTH 15.2 % (11.6-14.8); WHITE BLOOD COUNT 17.7 K/UL (4.8-10.8)
[2017-02-12] MEDS: D5W w/KCl 20mEq 1,000 ML IV SCH ×3 (05:25→16:58)
[2017-02-12 06:00] LABS: ALANINE AMINOTRANSFERASE 32 U/L (12-78); ALBUMIN/GLOBULIN RATIO 0.4 (1.0-2.7); ANION GAP 6 mmol/L (5-15); ASPARTATE AMINO TRANSFERASE 24 U/L (15-37); CALCIUM 8.4 MG/DL (8.5-10.1); CARBON DIOXIDE 26 MMOL/L (21-32); CHLORIDE 104 MMOL/L (98-107); CREATININE 0.8 MG/DL (0.55-1.30); MAGNESIUM 1.6 MG/DL (1.8-2.4); POTASSIUM 4.2 MMOL/L (3.5-5.1); SODIUM 136 MMOL/L (136-145); TOTAL PROTEIN 5.8 G/DL (6.4-8.2)
--- NOTE | 2017-02-12 07:24 | Pulmonology Progress Note ---
Assessment/Plan Assessment/Plan IMPRESSION: 1. Multiorgan system failure. 2. Sepsis. 3. Decubiti. 4. Dehydration. Resolved 5. Hypernatremia. Resolved 6. Hypovolemia.Corrected 7. Hyperchloremia.Corrected 8. Acute on chronic renal failure; improved. 9. Secondary sinus tachycardia. 10. Dementia with episodes of agitation. 11. Lactic acidosis. Resolved 12. GI bleed/anemia; resolved 13. Acute R DVT; s/p IVC PLAN: 1. Continue monitoring 2. Mild WBC worsening noted 4. Broad-spectrum antibiotics. Has VRE and E.coli in urine; ID following 5. Respiratory hygiene. 6. DVT and stress ulcer prophylaxis. Has IVC filter now 7. DC planning 8. WBC still high 9. Anti-platelet therapy. 10. On broad spectrum abx 11. Cardiology consult appreciated 12. GI consult s/p PEG now 13. Endoscopy done 14. Transfuse prn 16. Discussed with RN 17. s/p IVC filter for extensive DVT 18. PICC line done 19. Reviewed abd CT DC to SNF Subjective Interval Events: Mild worsening of WBC noted; clinically she is unchanged Constitutional: Reports: no symptoms HEENT: Repors: no symptoms Respiratory: Reports: no symptoms Cardiovascular: Reports: no symptoms Allergies: Coded Allergies: No Known Allergies (Unverified , 02/02/17) Objective Last 24 Hour Vital Signs Date Time Temp Pulse Resp B/P (MAP) Pulse Ox O2 Delivery O2 Flow Rate FiO2 02/12/17 04:00 97 02/12/17 04:00 98.1 96 20 115/55 100 Nasal Cannula 2.0 02/12/17 00:00 98.1 102 18 120/67 100 Nasal Cannula 2.0 02/12/17 00:00 109 02/11/17 22:57 114 116/73 02/11/17 20:00 113 02/11/17 20:00 98.1 114 18 116/73 100 Nasal Cannula 2.0 02/11/17 19:13 98 Nasal Cannula 2.0 28 02/11/17 19:13 Nasal Cannula 2.0 28 02/11/17 16:15 97.7 100 20 123/64 100 Nasal Cannula 2.0 02/11/17 16:00 100 02/11/17 12:00 98.0 98 20 117/62 100 Nasal Cannula 2.0 02/11/17 11:36 94 02/11/17 08:00 93 02/11/17 08:00 97.7 89 24 133/68 93 Nasal Cannula 2.0 02/11/17 07:56 96 Nasal Cannula 2.0 28 02/11/17 07:56 Nasal Cannula 2.0 28 General Appearance: no acute distress HEENT: normocephalic Respiratory/Chest: chest wall non-tender, lungs clear Cardiovascular: normal peripheral pulses, normal rate Abdomen: normal bowel sounds Microbiology Date/Time Source Procedure Growth Status 02/09/17 22:00 Stool Clostridium difficile Toxin Assay - Final Complete Laboratory Tests 02/12/17 04:10: White Blood Count 17.7H, Red Blood Count 2.89L, Hemoglobin 9.4L, Hematocrit 28.5L, Mean Corpuscular Volume 99, Mean Corpuscular Hemoglobin 32.6H, Mean Corpuscular Hemoglobin Concent 33.1, Red Cell Distribution Width 15.2H, Platelet Count 342, Mean Platelet Volume 6.0L, Neutrophils (%) (Auto) , Lymphocytes (%) (Auto) , Monocytes (%) (Auto) , Eosinophils (%) (Auto) , Basophils (%) (Auto) , Neutrophils % (Manual) [Pending], Lymphocytes % (Manual) [Pending], Platelet Estimate [Pending], Platelet Morphology [Pending], Sodium Level 136, Potassium Level 4.2, Chloride Level 104, Carbon Dioxide Level 26, Anion Gap 6, Blood Urea Nitrogen 5L, Creatinine 0.8, Estimat Glomerular Filtration Rate , Glucose Level 116H, Calcium Level 8.4L, Magnesium Level 1.6L, Total Bilirubin 0.8, Aspartate Amino Transf (AST/SGOT) 24, Alanine Aminotransferase (ALT/SGPT) 32, Alkaline Phosphatase 270H, Pro-B-Type Natriuretic Peptide 7197H, Total Protein 5.8L, Albumin 1.6L, Globulin 4.2, Albumin/Globulin Ratio 0.4L Current Medications Medications (Trade) Dose Ordered Sig/Lyndon Route PRN Reason Start Time Stop Time Status Last Admin Dose Admin Carvedilol (Coreg) 6.25 mg EVERY 12 HOURS GT 02/11/17 22:00 03/13/17 21:59 02/11/17 22:57 Chlorhexidine Gluconate (Mayte-Hex 2%) 1 applic DAILY@2000 TOPIC 02/06/17 20:00 03/04/17 19:59 02/11/17 20:43 Dextrose/ Electrolytes 1,000 ml @ 125 mls/hr Q8H IV 02/06/17 20:00 03/06/17 19:59 02/12/17 05:25 Linezolid (Zyvox) 600 mg EVERY 12 HOURS GT 02/06/17 21:00 02/12/17 23:59 02/11/17 20:43 Pantoprazole (Protonix) 40 mg EVERY 12 HOURS IVP 02/06/17 21:00 03/04/17 20:59 02/11/17 20:43 Teja Adhikari MD Feb 12, 2017 07:24
[2017-02-12 07:30] LABS: LYMPHOCYTES % (MANUAL) 7 % (20-45); NEUTROPHILS % (MANUAL) 91 % (45-75); TOTAL CELLS COUNTED 100
[2017-02-12 07:31] LABS: ANISOCYTOSIS 1+; BAND NEUTROPHILS % (MANUAL) 0 % (0-8); BASOPHILS % (MANUAL) 0 % (0-2); EOSINOPHILS % (MANUAL) 0 % (0-3); HYPOCHROMASIA 2+; PLATELET ESTIMATE ADEQUATE; PLATELET MORPHOLOGY NORMAL
[2017-02-12 08:00] VITALS: BP 123/62
[2017-02-12] MEDS: Carvedilol 6.25mg Tab GT SCH ×2 (09:15→20:11)
[2017-02-12] MEDS: Pantoprazole Inj IVP SCH ×2 (09:15→20:12)
--- NOTE | 2017-02-12 09:42 | General Progress Note ---
Assessment/Plan Assessment/Plan Assessment - anorexia - s/p PEG - mildly elevated alk phos - neg CT - malnutrition - anemia - diarrhea - dysphagia - leukocytosis - OBS - DVT - filter Recommendations - IVF - abx per ID - monitor H&H - PPI - continue elemental formula Subjective Allergies: Coded Allergies: No Known Allergies (Unverified , 02/02/17) Subjective s/p PEG on tube feeds diarrhea noted C diff (-) Objective Last 24 Hour Vital Signs Date Time Temp Pulse Resp B/P (MAP) Pulse Ox O2 Delivery O2 Flow Rate FiO2 02/12/17 09:15 103 123/63 02/12/17 04:00 97 02/12/17 04:00 98.1 96 20 115/55 100 Nasal Cannula 2.0 02/12/17 00:00 98.1 102 18 120/67 100 Nasal Cannula 2.0 02/12/17 00:00 109 02/11/17 22:57 114 116/73 02/11/17 20:00 113 02/11/17 20:00 98.1 114 18 116/73 100 Nasal Cannula 2.0 02/11/17 19:13 98 Nasal Cannula 2.0 28 02/11/17 19:13 Nasal Cannula 2.0 28 02/11/17 16:15 97.7 100 20 123/64 100 Nasal Cannula 2.0 02/11/17 16:00 100 02/11/17 12:00 98.0 98 20 117/62 100 Nasal Cannula 2.0 02/11/17 11:36 94 Laboratory Tests 02/12/17 04:10: White Blood Count 17.7H, Red Blood Count 2.89L, Hemoglobin 9.4L, Hematocrit 28.5L, Mean Corpuscular Volume 99, Mean Corpuscular Hemoglobin 32.6H, Mean Corpuscular Hemoglobin Concent 33.1, Red Cell Distribution Width 15.2H, Platelet Count 342, Mean Platelet Volume 6.0L, Neutrophils (%) (Auto) , Lymphocytes (%) (Auto) , Monocytes (%) (Auto) , Eosinophils (%) (Auto) , Basophils (%) (Auto) , Differential Total Cells Counted 100, Neutrophils % ( Manual) 91H, Lymphocytes % (Manual) 7L, Monocytes % (Manual) 2, Eosinophils % ( Manual) 0, Basophils % (Manual) 0, Band Neutrophils 0, Platelet Estimate Adequate, Platelet Morphology Normal, Hypochromasia 2+, Anisocytosis 1+, Sodium Level 136, Potassium Level 4.2, Chloride Level 104, Carbon Dioxide Level 26, Anion Gap 6, Blood Urea Nitrogen 5L, Creatinine 0.8, Estimat Glomerular Filtration Rate , Glucose Level 116H, Calcium Level 8.4L, Magnesium Level 1.6L, Total Bilirubin 0.8, Aspartate Amino Transf (AST/SGOT) 24, Alanine Aminotransferase (ALT/SGPT) 32, Alkaline Phosphatase 270H, Pro-B-Type Natriuretic Peptide 7197H, Total Protein 5.8L, Albumin 1.6L, Globulin 4.2, Albumin/Globulin Ratio 0.4L Height (Feet): 5 Height (Inches): 5.00 Weight (Pounds): 159 Objective Elderly AA woman NCAT, (+) NGT supple CTA RR Soft NT ND, (+) PEG no edema minimally interactive MAYITO HENDRICKSON Feb 12, 2017 09:42
--- NOTE | 2017-02-12 10:17 | Infectious Diseases Prog Note ---
Assessment/Plan Assessment/Plan A: 1. E. coli, Enterococcus UTI 2. shock resolved 3. leucocytosis 4. HPN 5. Positive blood culture for CoANS likely contamination 6. DVT s/p IVC filter 7. Leukocytosis P 1. discontinue Zyvox Subjective ROS Limited/Unobtainable: Yes Allergies: Coded Allergies: No Known Allergies (Unverified , 02/02/17) Objective Vital Signs Last 24 Hour Vital Signs Date Time Temp Pulse Resp B/P (MAP) Pulse Ox O2 Delivery O2 Flow Rate FiO2 02/12/17 09:37 96 Nasal Cannula 2.0 28 02/12/17 09:37 Nasal Cannula 2.0 28 02/12/17 09:15 103 123/63 02/12/17 08:00 99 02/12/17 04:00 97 02/12/17 04:00 98.1 96 20 115/55 100 Nasal Cannula 2.0 02/12/17 00:00 98.1 102 18 120/67 100 Nasal Cannula 2.0 02/12/17 00:00 109 02/11/17 22:57 114 116/73 02/11/17 20:00 113 02/11/17 20:00 98.1 114 18 116/73 100 Nasal Cannula 2.0 02/11/17 19:13 98 Nasal Cannula 2.0 28 02/11/17 19:13 Nasal Cannula 2.0 28 02/11/17 16:15 97.7 100 20 123/64 100 Nasal Cannula 2.0 02/11/17 16:00 100 02/11/17 12:00 98.0 98 20 117/62 100 Nasal Cannula 2.0 02/11/17 11:36 94 Height (Feet): 5 Height (Inches): 5.00 Weight (Pounds): 159 General Appearance: no acute distress HEENT: status post trach Respiratory/Chest: lungs clear Cardiovascular: normal rate Abdomen: soft, non tender, other - GT feeding Extremities: no edema Neurologic/Psychiatric: unresponsiveness Microbiology Date/Time Source Procedure Growth Status 02/09/17 22:00 Stool Clostridium difficile Toxin Assay - Final Complete Laboratory Tests Test 02/12/17 04:10 White Blood Count 17.7 K/UL (4.8-10.8) H Red Blood Count 2.89 M/UL (4.20-5.40) L Hemoglobin 9.4 G/DL (12.0-16.0) L Hematocrit 28.5 % (37.0-47.0) L Mean Corpuscular Volume 99 FL (80-99) Mean Corpuscular Hemoglobin 32.6 PG (27.0-31.0) H Mean Corpuscular Hemoglobin Concent 33.1 G/DL (32.0-36.0) Red Cell Distribution Width 15.2 % (11.6-14.8) H Platelet Count 342 K/UL (150-450) Mean Platelet Volume 6.0 FL (6.5-10.1) L Neutrophils (%) (Auto) % (45.0-75.0) Lymphocytes (%) (Auto) % (20.0-45.0) Monocytes (%) (Auto) % (1.0-10.0) Eosinophils (%) (Auto) % (0.0-3.0) Basophils (%) (Auto) % (0.0-2.0) Differential Total Cells Counted 100 Neutrophils % (Manual) 91 % (45-75) H Lymphocytes % (Manual) 7 % (20-45) L Monocytes % (Manual) 2 % (1-10) Eosinophils % (Manual) 0 % (0-3) Basophils % (Manual) 0 % (0-2) Band Neutrophils 0 % (0-8) Platelet Estimate Adequate Platelet Morphology Normal Hypochromasia 2+ Anisocytosis 1+ Sodium Level 136 MMOL/L (136-145) Potassium Level 4.2 MMOL/L (3.5-5.1) Chloride Level 104 MMOL/L (98-107) Carbon Dioxide Level 26 MMOL/L (21-32) Anion Gap 6 mmol/L (5-15) Blood Urea Nitrogen 5 mg/dL (7-18) L Creatinine 0.8 MG/DL (0.55-1.30) Estimat Glomerular Filtration Rate mL/min (>60) Glucose Level 116 MG/DL (74-106) H Calcium Level 8.4 MG/DL (8.5-10.1) L Magnesium Level 1.6 MG/DL (1.8-2.4) L Total Bilirubin 0.8 MG/DL (0.2-1.0) Aspartate Amino Transf (AST/SGOT) 24 U/L (15-37) Alanine Aminotransferase (ALT/SGPT) 32 U/L (12-78) Alkaline Phosphatase 270 U/L (46-116) H Pro-B-Type Natriuretic Peptide 7197 pg/mL (0-125) H Total Protein 5.8 G/DL (6.4-8.2) L Albumin 1.6 G/DL (3.4-5.0) L Globulin 4.2 g/dL Albumin/Globulin Ratio 0.4 (1.0-2.7) L Current Medications Medications (Trade) Dose Ordered Sig/Lyndon Route PRN Reason Start Time Stop Time Status Last Admin Dose Admin Carvedilol (Coreg) 6.25 mg EVERY 12 HOURS GT 02/11/17 22:00 03/13/17 21:59 02/12/17 09:15 Chlorhexidine Gluconate (Mayte-Hex 2%) 1 applic DAILY@2000 TOPIC 02/06/17 20:00 03/04/17 19:59 02/11/17 20:43 Dextrose/ Electrolytes 1,000 ml @ 125 mls/hr Q8H IV 02/06/17 20:00 03/06/17 19:59 02/12/17 05:25 Linezolid (Zyvox) 600 mg EVERY 12 HOURS GT 02/06/17 21:00 02/12/17 23:59 02/12/17 09:15 Pantoprazole (Protonix) 40 mg EVERY 12 HOURS IVP 02/06/17 21:00 03/04/17 20:59 02/12/17 09:15 MITA GUSTAFSON Feb 12, 2017 10:17
[2017-02-12 12:00] VITALS: BP 105/57
--- NOTE | 2017-02-12 12:02 | Endoscopy Procedure Note ---
Endoscopy Procedure Note Indication for Procedure: dysphagia Procedures Performed: PEG Operative Findings/Diagnosis: PEG placed Specimen: none Pt Tolerated Procedure Well: Yes Estimated Blood Loss: minimal Anesthesiologist: see report Anesthesia: MAC, moderate sedation Medication Given: see anesthesia record PEG: placed Implant(s) used?: No 50 yrs or older w/o bx or poly: Not Applicable 10yrs. F/U not recommended: Not Applicable If not recommended, why?: MAYITO HENDRICKSON Feb 12, 2017 12:02
--- NOTE | 2017-02-12 12:03 | Brief Operative Note ---
Immediate Post Operative Note Operative Note Chief Complaint: dysphagia Pre-op Diagnosis: dysphagia Procedure: EGD/PEG Post-op Diagnosis: duodenitis Surgeon: madina Anesthesiologist: see report Anesthesia: MAC Specimen: none Complications: none Condition: stable Fluids: see report Estimated Blood Loss: none Drains: none Implant(s) used?: No MAYITO HENDRICKSON Feb 12, 2017 12:03
[2017-02-12 16:00] VITALS: BP 124/57
[2017-02-12 20:00] VITALS: BP 125/61
[2017-02-12] MEDS: Dyna-Hex 2% Top Sol 2oz TOPIC SCH (20:12)
--- NOTE | 2017-02-12 20:45 | Progress Note ---
DATE: 02/12/2017 CARDIOLOGY PROGRESS NOTE SUBJECTIVE: The patient is status post IVC filter for extensive DVT. She is also status post G-tube placement. She is tolerating feedings. She is afebrile. She continues to have episodes of sinus tachycardia, but less frequently. OBJECTIVE: VITAL SIGNS: Blood pressure 115/55, pulse 96, and respiratory rate 20. HEENT: Temporal wasting. Bilateral breath sounds. No wheezing. HEART: Regular rhythm. Rapid rate. Normal S1 and S2. ABDOMEN: Soft. G-tube intact. EXTREMITIES: Trace edema. LABORATORY DATA: White count 17.7 and hemoglobin 9.4. Sodium 136, potassium 4.2, bicarbonate 26, BUN 5, and creatinine 0.8. Magnesium 1.6. Pro-natriuretic peptide is 7197 and albumin 1.6. IMPRESSION: 1. Acute myocardial infarction. 2. Sepsis with shock. 3. Dysphagia status post gastrostomy tube. 4. Deep venous thrombosis status post inferior vena cava filter. 5. Hypomagnesemia. 6. Severe protein-calorie malnutrition. PLAN: 1. Continue antimicrobials. 2. IV magnesium ordered. 3. Continue low-dose beta-ann. 4. Nutrition by feeding tube. 5. No plan for anticoagulation in view of bleeding risk. Audi Garcia M.D. DR: CARLOS JOB#: [id number] CC:
[2017-02-13] VITALS: BP 132/60
[2017-02-13 04:00] VITALS: BP 142/67
[2017-02-13 04:40] LABS: MEAN CORPUSCULAR HEMOGLOBIN 31.9 PG (27.0-31.0); MEAN CORPUSCULAR HGB CONC 32.6 G/DL (32.0-36.0); MEAN CORPUSCULAR VOLUME 98 FL (80-99); MEAN PLATELET VOLUME 5.8 FL (6.5-10.1); PLATELET COUNT 319 K/UL (150-450); RED BLOOD COUNT 2.79 M/UL (4.20-5.40); RED CELL DISTRIBUTION WIDTH 14.8 % (11.6-14.8); WHITE BLOOD COUNT 20.9 K/UL (4.8-10.8)
[2017-02-13 07:32] LABS: ANISOCYTOSIS 1+; BAND NEUTROPHILS % (MANUAL) 0 % (0-8); BASOPHILS % (MANUAL) 0 % (0-2); EOSINOPHILS % (MANUAL) 2 % (0-3); HYPOCHROMASIA 2+; LYMPHOCYTES % (MANUAL) 5 % (20-45); NEUTROPHILS % (MANUAL) 90 % (45-75); PLATELET ESTIMATE ADEQUATE; PLATELET MORPHOLOGY NORMAL; TOTAL CELLS COUNTED 100
[2017-02-13 08:42] VITALS: BP 128/65
--- NOTE | 2017-02-13 08:47 | Pulmonology Progress Note ---
Assessment/Plan Assessment/Plan IMPRESSION: 1. Multiorgan system failure. 2. Sepsis. 3. Decubiti. 4. Dehydration. Resolved 5. Hypernatremia. Resolved 6. Hypovolemia.Corrected 7. Hyperchloremia.Corrected 8. Acute on chronic renal failure; improved. 9. Secondary sinus tachycardia. 10. Dementia with episodes of agitation. 11. Lactic acidosis. Resolved 12. GI bleed/anemia; resolved 13. Acute R DVT; s/p IVC PLAN: 1. Continue monitoring 2. Mild WBC worsening noted 4. Broad-spectrum antibiotics. Has VRE and E.coli in urine; ID following 5. Respiratory hygiene. 6. DVT and stress ulcer prophylaxis. Has IVC filter now 7. DC planning 8. WBC still high 9. Anti-platelet therapy. 10. On broad spectrum abx 11. Cardiology consult appreciated 12. GI consult s/p PEG now 13. Endoscopy done 14. Transfuse prn 16. Discussed with RN 17. s/p IVC filter for extensive DVT 18. PICC line done 19. Reviewed abd CT DC to SNF Subjective Interval Events: Non-toxic appearing; stool negative for c diff; WBC 20K Constitutional: Reports: no symptoms HEENT: Repors: no symptoms Respiratory: Reports: no symptoms Cardiovascular: Reports: no symptoms Gastrointestinal/Abdominal: Reports: no symptoms Genitourinary: Reports: no symptoms Allergies: Coded Allergies: No Known Allergies (Unverified , 02/02/17) Objective Last 24 Hour Vital Signs Date Time Temp Pulse Resp B/P (MAP) Pulse Ox O2 Delivery O2 Flow Rate FiO2 02/13/17 08:42 98.4 97 17 128/65 100 Nasal Cannula 2.0 02/13/17 07:21 Nasal Cannula 2.0 28 02/13/17 07:21 98 Nasal Cannula 2.0 28 02/13/17 04:00 95 02/13/17 04:00 98.0 95 20 142/67 98 Nasal Cannula 2.0 02/13/17 00:00 98.8 96 20 132/60 99 Nasal Cannula 2.0 02/13/17 00:00 97 02/12/17 20:11 98 124/57 02/12/17 20:00 100 02/12/17 20:00 99.1 105 18 125/61 96 Mechanical Ventilator 2.0 02/12/17 19:30 Nasal Cannula 2.0 28 02/12/17 19:30 97 Nasal Cannula 2.0 28 02/12/17 16:00 98.8 101 16 124/57 97 Nasal Cannula 2.0 02/12/17 16:00 98 02/12/17 12:00 97 02/12/17 12:00 99.6 95 18 105/57 100 Nasal Cannula 2.0 02/12/17 09:37 96 Nasal Cannula 2.0 28 02/12/17 09:37 Nasal Cannula 2.0 28 02/12/17 09:15 103 123/63 General Appearance: no acute distress HEENT: normocephalic Respiratory/Chest: chest wall non-tender, lungs clear Cardiovascular: normal peripheral pulses, normal rate Abdomen: normal bowel sounds, soft, non tender Extremities: no cyanosis Laboratory Tests 02/13/17 04:20: White Blood Count 20.9H, Red Blood Count 2.79L, Hemoglobin 8.9L, Hematocrit 27.4L, Mean Corpuscular Volume 98, Mean Corpuscular Hemoglobin 31.9H, Mean Corpuscular Hemoglobin Concent 32.6, Red Cell Distribution Width 14.8, Platelet Count 319, Mean Platelet Volume 5.8L, Neutrophils (%) (Auto) , Lymphocytes (%) ( Auto) , Monocytes (%) (Auto) , Eosinophils (%) (Auto) , Basophils (%) (Auto) , Differential Total Cells Counted 100, Neutrophils % (Manual) 90H, Lymphocytes % (Manual) 5L, Monocytes % (Manual) 3, Eosinophils % (Manual) 2, Basophils % ( Manual) 0, Band Neutrophils 0, Platelet Estimate Adequate, Platelet Morphology Normal, Hypochromasia 2+, Anisocytosis 1+ Current Medications Medications (Trade) Dose Ordered Sig/Lyndon Route PRN Reason Start Time Stop Time Status Last Admin Dose Admin Carvedilol (Coreg) 6.25 mg EVERY 12 HOURS GT 02/11/17 22:00 03/13/17 21:59 02/12/17 20:11 Chlorhexidine Gluconate (Mayte-Hex 2%) 1 applic DAILY@1999 TOPIC 02/06/17 20:00 03/04/17 19:59 02/12/17 20:12 Pantoprazole (Protonix) 40 mg EVERY 12 HOURS IVP 02/06/17 21:00 03/04/17 20:59 02/12/17 20:12 Teja Adhikari MD Feb 13, 2017 08:47
[2017-02-13] MEDS: Carvedilol 6.25mg Tab GT SCH (09:29)
[2017-02-13] MEDS: Pantoprazole Inj IVP SCH (09:29)
[2017-02-13 12:00] VITALS: BP 112/57
--- NOTE | 2017-02-13 13:14 | Infectious Diseases Prog Note ---
"Assessment/Plan Assessment/Plan antibiotics : none A 1. e.coli | VRE UTI s/p rx 2. shock resolved 3. leucocytosis increasing 4. HTN 5. + blood cultures with coag neg staph likely contaminated 6. DVT s/p IVC filter placement P 1. start and continue flagyl 10 more days 2. will follow up cultures Subjective ROS Limited/Unobtainable: Yes Allergies: Coded Allergies: No Known Allergies (Unverified , 02/02/17) Objective Vital Signs Last 24 Hour Vital Signs Date Time Temp Pulse Resp B/P (MAP) Pulse Ox O2 Delivery O2 Flow Rate FiO2 02/13/17 12:00 87 02/13/17 12:00 97.5 87 17 112/57 100 Nasal Cannula 2.0 02/13/17 09:29 97 128/65 02/13/17 08:42 98.4 97 17 128/65 100 Nasal Cannula 2.0 02/13/17 08:00 91 02/13/17 07:21 Nasal Cannula 2.0 28 02/13/17 07:21 98 Nasal Cannula 2.0 28 02/13/17 04:00 95 02/13/17 04:00 98.0 95 20 142/67 98 Nasal Cannula 2.0 02/13/17 00:00 98.8 96 20 132/60 99 Nasal Cannula 2.0 02/13/17 00:00 97 02/12/17 20:11 98 124/57 02/12/17 20:00 100 02/12/17 20:00 99.1 105 18 125/61 96 Mechanical Ventilator 2.0 02/12/17 19:30 Nasal Cannula 2.0 28 02/12/17 19:30 97 Nasal Cannula 2.0 28 02/12/17 16:00 98.8 101 16 124/57 97 Nasal Cannula 2.0 02/12/17 16:00 98 Height (Feet): 5 Height (Inches): 5.00 Weight (Pounds): 161 Respiratory/Chest: lungs clear Cardiovascular: normal rate, regular rhythm, no gallop/murmur Abdomen: soft, non tender, other - GT Extremities: other - + edema Laboratory Tests Test 02/13/17 04:20 White Blood Count 20.9 K/UL (4.8-10.8) H Red Blood Count 2.79 M/UL (4.20-5.40) L Hemoglobin 8.9 G/DL (12.0-16.0) L Hematocrit 27.4 % (37.0-47.0) L Mean Corpuscular Volume 98 FL (80-99) Mean Corpuscular Hemoglobin 31.9 PG (27.0-31.0) H Mean Corpuscular Hemoglobin Concent 32.6 G/DL (32.0-36.0) Red Cell Distribution Width 14.8 % (11.6-14.8) Platelet Count 319 K/UL (150-450) Mean Platelet Volume 5.8 FL (6.5-10.1) L Neutrophils (%) (Auto) % (45.0-75.0) Lymphocytes (%) (Auto) % (20.0-45.0) Monocytes (%) (Auto) % (1.0-10.0) Eosinophils (%) (Auto) % (0.0-3.0) Basophils (%) (Auto) % (0.0-2.0) Differential Total Cells Counted 100 Neutrophils % (Manual) 90 % (45-75) H Lymphocytes % (Manual) 5 % (20-45) L Monocytes % (Manual) 3 % (1-10) Eosinophils % (Manual) 2 % (0-3) Basophils % (Manual) 0 % (0-2) Band Neutrophils 0 % (0-8) Platelet Estimate Adequate Platelet Morphology Normal Hypochromasia 2+ Anisocytosis 1+ HENRY SIMMS Feb 13, 2017 13:14"
[2017-02-13] MEDS ORDERED: NS 275ml ONE (13:29)
[2017-02-13] MEDS ORDERED: Tubing IV Secondary IV ONE (13:29)
--- NOTE | 2017-02-13 16:34 | Nephrology Progress Note ---
Assessment/Plan Problem List: (1) Septic shock (2) Hypotension (3) Anemia (4) Hypernatremia (5) Hypokalemia (6) Dehydration (7) Renal failure (ARF), acute on chronic (8) Dysphagia Plan Continue current treatment plan Monitor lytes, correct prn Continue abx per ID Monitor vitals Monitor neuro status Continue o2 therapy s/p PEG placement d'missy to [facility] Subjective ROS Limited/Unobtainable: Yes Subjective Getting d'missy to [facility], family aware Objective Objective Last 24 Hour Vital Signs Date Time Temp Pulse Resp B/P (MAP) Pulse Ox O2 Delivery O2 Flow Rate FiO2 02/13/17 12:00 87 02/13/17 12:00 97.5 87 17 112/57 100 Nasal Cannula 2.0 02/13/17 09:29 97 128/65 02/13/17 08:42 98.4 97 17 128/65 100 Nasal Cannula 2.0 02/13/17 08:00 91 02/13/17 07:21 Nasal Cannula 2.0 28 02/13/17 07:21 98 Nasal Cannula 2.0 28 02/13/17 04:00 95 02/13/17 04:00 98.0 95 20 142/67 98 Nasal Cannula 2.0 02/13/17 00:00 98.8 96 20 132/60 99 Nasal Cannula 2.0 02/13/17 00:00 97 02/12/17 20:11 98 124/57 02/12/17 20:00 100 02/12/17 20:00 99.1 105 18 125/61 96 Mechanical Ventilator 2.0 02/12/17 19:30 Nasal Cannula 2.0 28 02/12/17 19:30 97 Nasal Cannula 2.0 28 Intake and Output 02/13/17 02/14/17 19:00 07:00 Intake Total 300 ml Output Total 350 ml Balance -50 ml Tube Feeding 250 ml Other 50 ml Output Urine Total 350 ml # Bowel Movements 4 Laboratory Tests 02/13/17 04:20: White Blood Count 20.9H, Red Blood Count 2.79L, Hemoglobin 8.9L, Hematocrit 27.4L, Mean Corpuscular Volume 98, Mean Corpuscular Hemoglobin 31.9H, Mean Corpuscular Hemoglobin Concent 32.6, Red Cell Distribution Width 14.8, Platelet Count 319, Mean Platelet Volume 5.8L, Neutrophils (%) (Auto) , Lymphocytes (%) ( Auto) , Monocytes (%) (Auto) , Eosinophils (%) (Auto) , Basophils (%) (Auto) , Differential Total Cells Counted 100, Neutrophils % (Manual) 90H, Lymphocytes % (Manual) 5L, Monocytes % (Manual) 3, Eosinophils % (Manual) 2, Basophils % ( Manual) 0, Band Neutrophils 0, Platelet Estimate Adequate, Platelet Morphology Normal, Hypochromasia 2+, Anisocytosis 1+ Height (Feet): 5 Height (Inches): 5.00 Weight (Pounds): 161 General Appearance: no apparent distress EENT: normal ENT inspection Neck: non-tender Cardiovascular: regular rhythm, no JVD Respiratory/Chest: decreased breath sounds Abdomen: other - peg tube noted Genitourinary/Rectal: other - romero Extremities: non-tender Neurologic: motor weakness, sensory deficit, disoriented Seble Moody N.P. Feb 13, 2017 16:34
--- NOTE | 2017-02-13 18:06 | General Progress Note ---
Assessment/Plan Assessment/Plan Assessment - anorexia - s/p PEG - mildly elevated alk phos - neg CT - malnutrition - anemia - diarrhea - dysphagia - leukocytosis - OBS - DVT - filter Recommendations - IVF - abx per ID - monitor H&H - PPI - continue elemental formula Subjective Allergies: Coded Allergies: No Known Allergies (Unverified , 02/02/17) Subjective s/p PEG on tube feeds for discharge today Objective Last 24 Hour Vital Signs Date Time Temp Pulse Resp B/P (MAP) Pulse Ox O2 Delivery O2 Flow Rate FiO2 02/13/17 12:00 87 02/13/17 12:00 97.5 87 17 112/57 100 Nasal Cannula 2.0 02/13/17 09:29 97 128/65 02/13/17 08:42 98.4 97 17 128/65 100 Nasal Cannula 2.0 02/13/17 08:00 91 02/13/17 07:21 Nasal Cannula 2.0 28 02/13/17 07:21 98 Nasal Cannula 2.0 28 02/13/17 04:00 95 02/13/17 04:00 98.0 95 20 142/67 98 Nasal Cannula 2.0 02/13/17 00:00 98.8 96 20 132/60 99 Nasal Cannula 2.0 02/13/17 00:00 97 02/12/17 20:11 98 124/57 02/12/17 20:00 100 02/12/17 20:00 99.1 105 18 125/61 96 Mechanical Ventilator 2.0 02/12/17 19:30 Nasal Cannula 2.0 28 02/12/17 19:30 97 Nasal Cannula 2.0 28 Intake and Output 02/13/17 02/14/17 19:00 07:00 Intake Total 300 ml Output Total 350 ml Balance -50 ml Tube Feeding 250 ml Other 50 ml Output Urine Total 350 ml # Bowel Movements 4 Laboratory Tests 02/13/17 04:20: White Blood Count 20.9H, Red Blood Count 2.79L, Hemoglobin 8.9L, Hematocrit 27.4L, Mean Corpuscular Volume 98, Mean Corpuscular Hemoglobin 31.9H, Mean Corpuscular Hemoglobin Concent 32.6, Red Cell Distribution Width 14.8, Platelet Count 319, Mean Platelet Volume 5.8L, Neutrophils (%) (Auto) , Lymphocytes (%) ( Auto) , Monocytes (%) (Auto) , Eosinophils (%) (Auto) , Basophils (%) (Auto) , Differential Total Cells Counted 100, Neutrophils % (Manual) 90H, Lymphocytes % (Manual) 5L, Monocytes % (Manual) 3, Eosinophils % (Manual) 2, Basophils % ( Manual) 0, Band Neutrophils 0, Platelet Estimate Adequate, Platelet Morphology Normal, Hypochromasia 2+, Anisocytosis 1+ Height (Feet): 5 Height (Inches): 5.00 Weight (Pounds): 161 Objective Elderly AA woman NCAT, (+) NGT supple CTA RR Soft NT ND, (+) PEG no edema minimally interactive MAYITO HENDRICKSON Feb 13, 2017 18:06
[2017-02-13] MEDS ORDERED: metroNIDAZOLE 500mg tab ORAL SCH (22:00)
--- NOTE | 2017-02-14 03:31 | Progress Note ---
DATE: 02/13/2017 CARDIOLOGY PROGRESS NOTE SUBJECTIVE: Condition is stabilized. The patient is to be transferred to a long-term facility once bed is secured. OBJECTIVE: VITAL SIGNS: She is afebrile. Blood pressure 128/65, pulse rate 97, and respiratory rate 17. GENERAL: Monitored sinus and sinus tachycardia. She continued on broad-spectrum antibiotics. CHEST: Bilateral breath sounds. HEART: Regular rhythm and rate. Normal S1 and S2 with a fourth heart sound. ABDOMEN: Soft. G-tube intact. EXTREMITIES: Trace edema. LABORATORY DATA: White count is 20.9 and hemoglobin 8.9. No chemistry panel today. IMPRESSION: 1. Sepsis with shock, now recovered. 2. Hypomagnesemia, status post replacement. 3. Acute myocardial infarction, now hemodynamically stabilized with no signs of acute ischemia. 4. Acute deep venous thrombosis, status post inferior vena-cava filter. 5. Secondary sinus tachycardia, possibly due to pulmonary embolic event, not confirmed. 6. Severe protein-calorie malnutrition. 7. Dysphagia, status post gastrostomy tube. 8. Remained high risk, but stable for lower level of care. PLAN: 1. Antimicrobials. 2. Titrate beta-ann as blood pressure parameters can tolerate at long-term facility. 3. Nutrition by feeding tube. 4. Skin care. Audi Garcia M.D. DR: Isidro JOB#: [id number] CC:
--- NOTE | 2017-02-16 10:44 | Cardiology Report ---
APPROVED REPORT EXAM: Two-dimensional and M-mode echocardiogram with Doppler and color Doppler. INDICATION Shortness of breath M-Mode DIMENSIONS IVSd1.2 (0.7-1.1cm)Left Atrium (MM)3.0 (1.6-4.0cm) LVDd3.9 (3.5-5.6cm)Aortic Root2.6 (2.0-3.7cm) PWd0.9 (0.7-1.1cm)Aortic Cusp Exc.1.7 (1.5-2.0cm) LVDs2.8 (2.5-4.0cm) PWs1.2 cm Normal left ventricular chamber size. Global left ventricular hypokinesis. Left ventricular ejection fraction estimated to be 35 %. Mild left ventricular hypertrophy. Anterior Echo-free space, may be due to pericardial fat or effusion. Left atrial chamber size is within normal limits. Right atrial chamber size is within normal limits. Mild right ventricular chamber sizes enlargement. Mild focal aortic valve sclerosis with adequate cusp excursion. Mildly thickened mitral valve leaflets with normal excursion. Mild mitral annulus and aortic root calcification. Normal pulmonic valve structure. Normal tricuspid valve structure. IVC dilated at 2.0 cm with physiologic collapse, estimated RAP is 10 mmHg. A color flow and spectral Doppler study was performed and revealed: Mild aortic regurgitation. No mitral regurgitation. Mitral diastolic velocities suggest reduced left ventricular relaxation c/w mild LV diastolic dysfunction (Grade I ). Moderate tricuspid regurgitation. Tricuspid systolic velocities suggests peak right ventricular systolic pressure of 47 mmHg, consistent with moderate pulmonary hypertension. Mild pulmonic regurgitation present.
--- NOTE | 2017-02-16 13:38 | Discharge Summary ---
Discharge Summary Hospital Course Date of Admission Feb 02, 2017 at 13:50 Date of Discharge Feb 13, 2017 at 13:30 Admitting Diagnosis severe sepsis HPI Brandy Curtis is a 81 year old female who was admitted on Feb 02, 2017 at 13:50 for Severe Sepsis Hospital Course dc summary # [id number] Discharge Condition Upon Discharge: stable Discharge Disposition Patient was discharged to SNF/Subacute Facility(03) Discharge Diagnoses: Discharge Instructions Discharge Instructions Special Instructions I have been assigned to complete a D/C Summary on this account. I was not involved in the patient management Dawn Pappas NP ([place]) Feb 16, 2017 13:38
--- NOTE | 2017-02-16 18:45 | Discharge Summary 2 SIG ---
DATE OF ADMISSION: 02/02/2017 DATE OF DISCHARGE: 02/13/2017 REASON FOR ADMISSION: 81-year-old female recently discharged from [facility] after admission for failure to thrive and dehydration. She had an UTI at that time, which was treated. She passed swallow evaluation and was discharged to custodial with modified diet. After staying in the correction facility, she was discharged back home. reported that the patient was not eating. She was brought to [facility] for evaluation. The patient was found to be hypotensive, tachycardic, with evidence of acute renal failure and hypernatremia. Leukocytosis-23.8. The patient appeared acutely critically ill. A central line was placed for pressors, and the patient was admitted to ICU for severe sepsis with septic shock, dehydration, hypernatremia, anemia and acute renal failure. HOSPITAL STAY: The patient admitted to ICU and started on pressors for hemodynamic support. Cardiology consult was requested. The patient showed evidence of multiorgan system failure. The patient pancultured and started on empiric antibiotics. Urine culture revealed E. coli and Enterococcus. ID closely followed. The patient status post treatment with antibiotics. Blood cultures grew Staph coagulase-negative, likely contaminant as per ID. Stool for C. difficile was negative. Again, the patient is status post treatment with antibiotics. Leukocytosis still persists prior to discharge. Sausage Stuffer and rn invasive closely followed. The patient had evidence of elevated troponin. Serial troponin trending down. According to caravan park and camping ground manager, the patient had acute myocardial infarction. However , due to the bleeding risk, she was not a candidate for anticoagulant therapy. GI closely followed. The patient required transfusion of two units of packed red blood cells for hemoglobin - 8.7 and hematocrit- 22.6. After two units, hemoglobin up to 10.6 and hematocrit up to 34.4. GI closely followed since the patient was malnourished and was not eating. The patient required placement of PEG. The patient subsequently undergone EGD with PEG placement on 02/10/2017. Tube feeding was slowly started. Strict aspiration precautions were maintained. The patient was able to tolerate tube feeding. G-tube site care was provided. Arterial duplex of bilateral lower extremities was negative. Venous duplex of bilateral lower extremities revealed acute DVT in left lower extremity superficial, common femoral, popliteal, and calf veins. Again, the patient was not a candidate for anticoagulation therapy. Subsequently, vascular surgeon consult was requested, and the patient undergone IVC filter placement. IV fluids provided. Renal parameters and electrolytes were closely monitored. Engine Service Repairer followed. Electrolytes were corrected as needed. The patient was initially severely dehydrated. Prior to discharge, sodium down to 136. Renal parameter down to normal. BUN -5 and creatinine -0.8. Initial sodium - 160, BUN-52, and creatinine -3.5. ProBNP was down from 12,230 to 7,197. Chest x-ray revealed no acute cardiopulmonary pathology. Echocardiogram revealed global left ventricular hypokinesis with ejection fraction of 35% and right ventricular systolic pressure of 47 consistent with moderate pulmonary hypertension. As the patient clinically improved, she was able to be weaned from pressors. Supplemental oxygen and pulmonary toilet were provided as needed. GI prophylaxis was provided. Antiplatelet treatment was on hold due to the preparation for PEG. When blood pressure stabilized, low dose of beta-ann was added. Dietary supplements were provided as per nutritional recommendation. Electrolytes were replaced as needed. Wound care nurse seen and evaluated the patient for present on admission sacral decubitus stage II, left buttock stage II, and right buttock stage II, as well as the multiple deep tissue injuries . Wound care was provided as per wound care nurse recommendation. Placement was found in the correction facility. According to caravan park and camping ground manager, the patient remains at high risk, but was stable for lower level of care. Patient was discharged to the correction facility. FINAL DIAGNOSES: 1. Severe sepsis with septic shock. 2. Polymicrobial urinary tract infection with Escherichia coli and Enterococcus, status post treatment. 3. Multiple organ failure. 4. Acute renal failure due to acute tubular necrosis. 5. Acute myocardial infarction, now stabilized. 6. Lactic acidosis, resolved. 7. Dehydration, resolved. 8. Hypernatremia, resolved. 9. Acute on chronic diastolic congestive heart failure. 10. Acute left lower extremity deep venous thrombosis. 11. Status post inferior vena cava filter placement 12. Dysphagia, 13. Status post percutaneous endoscopic gastrostomy 14. Severe protein-calorie malnutrition. 15. Electrolyte abnormalities (hypokalemia, hypernatremia, hyperchloremia, and hypomagnesemia). 15. Acute anemia, requiring blood transfusion. 16. Dementia. DISCHARGE MEDICATIONS: List of medication was sent to admitting facility. The patient was discharged to [facility]. DISCHARGE INSTRUCTIONS: The patient was discharged to correction facility for correction services. The patient to follow up with medical doctor at the facility. Teja Adhikari M.D. I have been assigned to dictate discharge summary on this account and I was not involved in the patient's management. Dawn SaldivarJanet denny DR: ANDREW JOB#: [id number] CC: [id number]
== END 2017-02-13 13:30 | DRG 853 ==
LOC: EDBD 12:38 → EMR 13:40 → ICU 13:50 → EDBEDREQ 14:24 → 2W 02-06 18:19
PROC: 06HM33Z Insertion of Infusion Device into Right Femoral Vein, Percutaneous Approach (ICD-10-PCS; principal; 2017-02-02)
PROC: B544ZZ3 Ultrasonography of Left Jugular Veins, Intravascular (ICD-10-PCS; 2017-02-05)
PROC: 02HV33Z Insertion of Infusion Device into Superior Vena Cava, Percutaneous Approach (ICD-10-PCS; 2017-02-05)
PROC: 0DJ08ZZ Inspection of Upper Intestinal Tract, Via Natural or Artificial Opening Endoscopic (ICD-10-PCS; 2017-02-05)
PROC: B548ZZA Ultrasonography of Superior Vena Cava, Guidance (ICD-10-PCS; 2017-02-05)
PROC: 06H03DZ Insertion of Intraluminal Device into Inferior Vena Cava, Percutaneous Approach (ICD-10-PCS; 2017-02-05)
PROC: 0DH63UZ Insertion of Feeding Device into Stomach, Percutaneous Approach (ICD-10-PCS; 2017-02-10)
DX: A41.9 Sepsis, unspecified organism (principal); N17.0 Acute kidney failure with tubular necrosis; I21.9 Acute myocardial infarction, unspecified; R65.21 Severe sepsis with septic shock; E43 Unspecified severe protein-calorie malnutrition; G93.40 Encephalopathy, unspecified; I50.33 Acute on chronic diastolic (congestive) heart failure; K29.81 Duodenitis with bleeding; E86.0 Dehydration; E87.0 Hyperosmolality and hypernatremia; N39.0 Urinary tract infection, site not specified; E87.2 Acidosis; I13.0 Hypertensive heart and chronic kidney disease with heart failure and stage 1 through stage 4 chronic kidney disease, or unspecified chronic kidney disease; I82.412 Acute embolism and thrombosis of left femoral vein; I82.432 Acute embolism and thrombosis of left popliteal vein; B95.2 Enterococcus as the cause of diseases classified elsewhere; B96.20 Unspecified Escherichia coli [E. coli] as the cause of diseases classified elsewhere; F03.90 Unspecified dementia, unspecified severity, without behavioral disturbance, psychotic disturbance, mood disturbance, and anxiety; E83.42 Hypomagnesemia; E87.8 Other disorders of electrolyte and fluid balance, not elsewhere classified; E87.6 Hypokalemia; N18.9 Chronic kidney disease, unspecified; L89.152 Pressure ulcer of sacral region, stage 2; L89.322 Pressure ulcer of left buttock, stage 2; L89.312 Pressure ulcer of right buttock, stage 2; D64.9 Anemia, unspecified; R13.10 Dysphagia, unspecified; R62.7 Adult failure to thrive; Z68.26 Body mass index [BMI] 26.0-26.9, adult; R19.7 Diarrhea, unspecified
CPT/HCPCS: 36415; 36569; 36600; 51702; 71010; 74000; 74176; 75825; 76775; 76937; 80048; 80053; 80202; 81003; 82248; 82550; 82553; 82803; 82962; 83605; 83690; 83735; 83880; 84443; 84484; 85007; 85025; 85610; 85730; 86850; 86900; 86901; 86920; 87040; 87081; 87086; 87181; 87324; 93005; 93306; 93925; 93970; 94003; 94150; 94760; J2250